=== PATIENT | male | born 1940 | race Caucasian/White ===

== ENCOUNTER 2017-02-12 16:50 | Inpatient (IN) | payer OTHER ==
[~2017-02-12] VITALS: Ht 162.6 cm; Wt 51.6 kg
[2017-02-12 17:05] VITALS: Ht 162.6 cm; Wt 51.6 kg
[2017-02-12] MEDS ORDERED: HYDR-906 PO (17:57)
[2017-02-12] MEDS ORDERED: DEC2 PO (17:58)
[2017-02-12] MEDS ORDERED: KETOROLAC 15 MG INJ IV STA (18:00)
[2017-02-12] MEDS ORDERED: SOD CHLORIDE 0.9% 1,000 ML IV STA (18:00)
--- NOTE | 2017-02-12 18:53 | RADRPT ---
PROCEDURE: CT Brain without contrast. CLINICAL INDICATION: Altered mental status. Question intracranial hemorrhage. TECHNIQUE: Axial images from the skull base through the vertex without IV contrast. Multiplanar r eformatted images were made. Images were reviewed on a PACS workstation. The CTDIvol is 44.9 mGy a nd the DLP is 720.23 mGycm. One or more of the following dose reduction techniques were used: autom ated exposure control, adjustment of the mA and/or kV according to patient size, or use of iterative reconstruction technique. COMPARISON: None. FINDINGS: There are changes from prior right posterior parietal craniotomy. There is an ill-defined mass in th e high right frontoparietal region which partially abuts the falx but extends inferiorly into the ri ght hemisphere just above the right lateral ventricle. There is significant associated vasogenic she[place] ma. There is cleft-like CSF density extending along the medial margin of the mass which could commun icate with the right lateral ventricle. The ventricles are dilated including the third ventricle and fourth ventricle as well as the temporal tips. No intraventricular hemorrhage is seen. There are st ippled areas of increased attenuation within the mass which may represent areas of calcification. Th e dimensions of the mass are difficult to measure as the lesion is ill-defined but the lesion measur es at least 5.2 cm AP by 3.7 cm transverse by 4.8 cm craniocaudad. There is minimal [id number] mi dline shift. No territorial infarction or acute intracranial hemorrhage is seen. Intracranial vascular calcification is seen. Small focal hypodensity in the left frontal lobe subcortical white m atter is seen. The visualized paranasal sinuses and mastoids are clear. IMPRESSION: Changes from prior right posterior parietal craniotomy with large intraparenchymal mass abutting the falx and with significant associated vasogenic edema. Probable areas of calcification within. Minim al [id number] midline shift. Dilated ventricles. MRI with without contrast is suggested for darrius r delineation of the mass. RPTAT: HLBE Physician Santiago Date Time Electronically viewed and signed by Physician Santiago on 02/12/2017 18:53 LE/
--- NOTE | 2017-02-12 19:17 | RADRPT ---
AMENDMENT: 02/12/2017 7:28:23 PM Sherman Castellano Md ADDENDUM: FINDINGS: Surgical changes in the pelvis. Calcifications likely in the corpus cavernosum. PROCEDURE: Pelvis x-ray CLINICAL INDICATION: Trauma. TECHNIQUE: Single AP view of the pelvis performed. COMPARISON: None FINDINGS: Normal mineralization, architecture and alignment. No fracture or osseous lesion identified. There are no significant degenerative changes. Unremarkable soft tissues. IMPRESSION: No acute fracture or subluxation. RPTAT: [facility] Physician Carl Date Time Electronically viewed and signed by Linda Castellano Physician on 02/12/2017 19:30 RS/
--- NOTE | 2017-02-12 19:18 | RADRPT ---
AMENDMENT: 02/12/2017 7:28:05 PM Sherman Castellano Md ADDENDUM: FINDINGS: Surgical changes in the pelvis. Calcifications likely in the corpus cavernosum. PROCEDURE: XR Hip. CLINICAL INDICATION: Trauma to the right hip TECHNIQUE: AP and frog lateral views of the right hip were performed. COMPARISON: None. FINDINGS: There is normal mineralization and alignment. No fracture or osseous lesion is identified. There are normal joints without evidence of arthritis or effusion. The soft tissues are unremarkable. IMPRESSION: Unremarkable right hip. RPTAT: [facility]U Physician Carl Date Time Electronically viewed and signed by Physician Carl on 02/12/2017 19:30 RS/
--- NOTE | 2017-02-12 19:51 | RADRPT ---
PROCEDURE: XR Chest. CLINICAL INDICATION: Infiltrate. TECHNIQUE: Single frontal view of the chest. COMPARISON: None. FINDINGS: Mild cardiomegaly. Atherosclerotic calcifications in the tortuous thoracic aorta. Mild vascular [place] ding may be present at the right lung base. The lungs are otherwise clear. No signs of pleural fluid or pneumothorax are seen. The osseous structures and soft tissues are unremarkable. IMPRESSION: 1. Mild vascular crowding may be present at the right lung base. 2. Otherwise, no acute cardiopulmonary disease. RPTAT: UU Physician Carl Date Time Electronically viewed and signed by Physician Carl on 02/12/2017 19:51 RS/
--- NOTE | 2017-02-12 19:51 | RADRPT ---
PROCEDURE: XR Chest. CLINICAL INDICATION: Infiltrate. TECHNIQUE: Single frontal view of the chest. COMPARISON: None. FINDINGS: Mild cardiomegaly. Atherosclerotic calcifications in the tortuous thoracic aorta. Mild vascular [place] may be present at the right lung base. The lungs are otherwise clear. No signs of pleural fluid or pneumothorax are seen. The osseous structures and soft tissues are unremarkable. IMPRESSION: 1. Mild vascular crowding may be present at the right lung base. 2. Otherwise, no acute cardiopulmonary disease. RPTAT: UU Physician Carl Date Time Electronically viewed and signed by Physician Carl on 02/12/2017 19:51 RS/
--- NOTE | 2017-02-12 19:51 | RADRPT ---
PROCEDURE: XR Chest. CLINICAL INDICATION: Infiltrate. TECHNIQUE: Single frontal view of the chest. COMPARISON: None. FINDINGS: Mild cardiomegaly. Atherosclerotic calcifications in the tortuous thoracic aorta. Mild vascular [place] ding may be present at the right lung base. The lungs are otherwise clear. No signs of pleural fluid or pneumothorax are seen. The osseous structures and soft tissues are unremarkable. IMPRESSION: 1. Mild vascular crowding may be present at the right lung base. 2. Otherwise, no acute cardiopulmonary disease. RPTAT: [facility]U Physician Carl Date Time Electronically viewed and signed by Physician Carl on 02/12/2017 19:51 RS/
[2017-02-12] MEDS ORDERED: IBUP400T22 PO (20:14)
--- NOTE | 2017-02-12 22:30 | ERD ---
ER Documentation Chief Complaint Chief Complaint Fall, no KO, pain right knee, thigh and right elbow - head injury HPI 76-year-old man brought in by EMS from home after mechanical trip and fall injuring his right hip. Patient recalls the entire episode and denies head or neck injury, denies loss of consciousness. Patient has history of surgical craniotomy a year ago and has been in and out of various [facility] facilities and rehab over the last year. He was home for 1 day and his claims he was agitated and accidentally fell. He was ambulatory after the fall transported here by EMS without further complications. Seems to his and he do not get along and can no longer care for him at home. He denies recent fevers or chills, no chest pain or shortness of breath, no headache or blurry vision, no vomiting or diarrhea. ROS All systems reviewed and are negative except as per history of present illness. Medications Home Meds Active Scripts Ibuprofen* (Motrin*) 400 Mg Tab, 400 MG PO Q8 for PAIN AND/OR INFLAMMATION, #30 TAB Prov:DANNIE BLAKELY MD 02/12/17 Reported Medications Dexamethasone* (Decadron*) 2 Mg Tab, 2 MG PO BID, TAB 02/12/17 Hydrocodone/Acetaminophen (Reading 5-325 Tablet) 1 Each Tablet, 1 EACH PO Q6H, TAB 02/12/17 Allergies Allergies: Coded Allergies: No Known Allergy (Unverified , 02/12/17) PMhx/Soc Dementia, surgical craniotomy, arthritis, chronic gait ataxia with difficulty ambulating, seizure disorder Medical and Surgical Hx: pt denies Medical Hx, pt denies Surgical Hx History of Surgery: Yes (Brain tumor x 2016 feb. [facility] pt ) Anesthesia Reaction: No Hx Neurological Disorder: No Hx Respiratory Disorders: No Hx Cardiac Disorders: No Hx Psychiatric Problems: No Hx Miscellaneous Medical Probl: Yes (prostate cancer, dementia ) Hx Alcohol Use: No Hx Substance Use: No Hx Tobacco Use: Yes Smoking Status: Former smoker FmHx Family History: No diabetes Physical Exam Vitals Vital Signs Date Time Temp Pulse Resp B/P Pulse Ox O2 Delivery O2 Flow Rate FiO2 02/12/17 20:35 91 20 149/85 99 Room Air 02/12/17 17:05 98.3 98 20 160/95 97 Physical Exam GENERAL: Well-developed, well-nourished, appears dehydrated, afebrile HEENT: Dry mucous membranes, pink conjunctiva, no cervical spine tenderness or step-off deformities, no goiter, no jaundice or icterus, extraocular movements intact without pain. No submandibular induration, and no pharyngeal erythema NEURO: Alert and oriented 3, cranial nerves II through XII intact bilaterally, pupils equal round reactive to light, no focal deficits or facial asymmetry, sensation intact distally Strength 5/5 in upper and lower extremities bilaterally CARDIAC: Regular rate and rhythm, no murmurs rubs or gallops LUNGS: Clear bilaterally no wheezing crackles or stridor ABDOMEN: Soft nontender, no guarding, no rigidity, no rebound, no psoas sign no obturator sign. Normoactive bowel sounds SKIN: Warm and dry to touch, positive soft tissue contusion to the right hip, no target lesions, and without ulcers EXTREMITIES: No clubbing cyanosis or edema, calves are bilaterally symmetrical, no Homans sign, no popliteal cord sign. Distal pulses equal and bilateral PSYCH: Normal affect without agitation or irritability Result Diagram: 02/12/17191702/12/171917 Results 24 hrs Laboratory Tests Test 02/12/17 19:18 White Blood Count 6.010^3/ul Red Blood Count 4.0410^6/ul Hemoglobin 13.6g/dl Hematocrit 39.0% Mean Corpuscular Volume 96.5fl Mean Corpuscular Hemoglobin 33.7pg Mean Corpuscular Hemoglobin Concent 34.9g/dl Red Cell Distribution Width 13.4% Platelet Count 31421^3/UL Mean Platelet Volume 8.6fl Neutrophils % 69.7% Lymphocytes % 17.4% Monocytes % 7.7% Eosinophils % 0.0% Basophils % 0.7% Nucleated Red Blood Cells % 0.0/100WBC Neutrophils # 4.210^3/ul Lymphocytes # 1.010^3/ul Monocytes # 0.510^3/ul Eosinophils # 0.010^3/ul Basophils # 0.010^3/ul Nucleated Red Blood Cells # 0.010^3/ul Prothrombin Time 12.2Sec Prothrombin Time Ratio 1.0 INR International Normalized Ratio 0.91 Sodium Level 138mmol/L Potassium Level 4.3mmol/L Chloride Level 100mmol/L Carbon Dioxide Level 31mmol/L Anion Gap 11 Blood Urea Nitrogen 10mg/dl Creatinine 0.88mg/dl Glucose Level 91mg/dl Calcium Level 8.8mg/dl Total Bilirubin 0.6mg/dl Direct Bilirubin 0.00mg/dl Indirect Bilirubin 0.6mg/dl Aspartate Amino Transf (AST/SGOT) 35IU/L Alanine Aminotransferase (ALT/SGPT) 51IU/L Alkaline Phosphatase 50IU/L Troponin I 0.021ng/ml Total Protein 6.5g/dl Albumin 3.6g/dl Globulin 2.90g/dl Albumin/Globulin Ratio 1.24 Lipase 20U/L Current Medications Medications (Trade) Dose Ordered Sig/Kieran Route PRN Reason Start Time Stop Time Status Last Admin Dose Admin Sodium Chloride (NS) 1,000 ml @ 1,000 mls/hr Q1H STAT IV 02/12/17 18:00 02/12/17 18:59 DC 02/12/17 19:25 Ketorolac Tromethamine (Toradol) 15 mg ONCE STAT IV 02/12/17 18:00 02/12/17 18:02 DC 02/12/17 19:25 Procedures/MDM IV line was established patient was placed on school lunch monitor rhythm strip revealed a sinus rhythm at about 80 bpm with upright P and T waves. Patient was afebrile. I administered 1 L normal saline intravenously and Toradol 15 mg IV with good pain control. CT scan of the brain was performed revealing chronic changes, no acute bleed mass or shift. Please refer to radiologist dictation for full report. Chest X-ray 1V Interpreted by me: Soft Tissue: No acute abnormalities Bones: No acute abnormalities Mediastinum/Cardiac Silhouette/Lungs: No acute abnormalities X-ray right hip 2V Interpreted by me: Bones: No fracture Joints: No dislocation Foreign body: None X-ray Pelvis 1V Interpreted by me: Bones: No fracture Joints: No dislocation Foreign body: None CBC and electrolytes were unremarkable, liver function tests are normal, troponin negative. Coagulation profile unremarkable. Patient was transported back home but his would not answer the door. Became a domestic issue and [employer] officers were called to the scene, they knocked on his door by his would not answer despite the [employer] officers' attempts. Patient was transported back to this emergency department and he will undergo a full for placement. No indication to the patient patient's vital signs are normal, he is asymptomatic, and just requires a place to live. Differential diagnoses considered, included but not limited to acute coronary syndrome, normal pressure hydrocephalus, pulmonary embolism, aortic dissection, abdominal aortic aneurysm, sepsis, stroke, meningitis, encephalitis, pneumonia, appendicitis, cholecystitis, bowel obstruction, pyelonephritis, nephrolithiasis , cystitis, as well as metabolic, hematologic, and electrolyte abnormalities. As well as abscess, cellulitis, fractures, and dislocations. Patient feels much better at this time, and vital signs are normal, symptoms have improved. I did give strict instructions to return to the ED if symptoms continue or worsen, patient will otherwise follow-up with primary care physician. Patient understood instructions and agreed to plan. Disclaimer: Inadvertent spelling and grammatical errors are likely due to EHR/ dictation software use and do not reflect on the overall quality of patient care. Also, please note that the electronic time recorded on this note does not necessarily reflect the actual time of the patient encounter. Departure Diagnosis: Primary Impression: Contusion, hip Encounter type: initial encounter Laterality: right Qualified Code: S70.01XA - Contusion of right hip, initial encounter Additional Impression: Dementia Dementia type: unspecified type Dementia behavioral disturbance: without behavioral disturbance Qualified Code: F03.90 - Dementia without behavioral disturbance, unspecified dementia type Condition: Stable Patient Instructions: Dementia: Coping Tips for Caregivers, Alzheimer's Dementia, Contusion, Lower Extremity, Dementia, Any Type, Hip Strain DANNIE BLAKELY MD Feb 12, 2017 22:30
[2017-02-12] MEDS ORDERED: PANT20TA2 PO (22:37)
[2017-02-12] MEDS ORDERED: DEC4 PO (22:37)
[2017-02-12] MEDS ORDERED: LEVE-5 PO (22:37)
[2017-02-12] MEDS ORDERED: LEVETIRACETAM 500 MG TAB PO ONE (23:00)
[2017-02-12] MEDS ORDERED: LORAZEPAM 2 MG INJ IV ONE (23:30)
[2017-02-13] MEDS ORDERED: SOD CHLORIDE 0.45% 1,000 ML IV SCH (17:58)
[2017-02-13] MEDS ORDERED: NITROGLYCERIN (SL) 0.4 MG TAB SL PRN (18:00)
[2017-02-13] MEDS ORDERED: DOCUSATE SODIUM 100 MG CAP PO PRN (18:00)
[2017-02-13] MEDS ORDERED: MAGNESIUM HYDROXIDE 30ML CUP PO PRN (18:00)
[2017-02-13] MEDS ORDERED: NACL 0.9% 3 ML SYG IV SCH (18:00)
[2017-02-13] MEDS ORDERED: NA PHOSPHATE/BIPHOS 133 ML ENEMA PR PRN (18:00)
[2017-02-13] MEDS ORDERED: HYDROCODONE/APAP (5/325) TAB PO PRN (18:00)
[2017-02-13] MEDS ORDERED: ONDANSETRON 4 MG INJ IV PRN ×2 (18:00)
[2017-02-13] MEDS ORDERED: morphine 2 MG INJ IV PRN (18:00)
[2017-02-13] MEDS ORDERED: ALBUTEROL/IPRATROPIUM (NEB) 3 ML AMP HHN PRN (18:00)
[2017-02-13] MEDS ORDERED: hydrALAzine 20 MG INJ IV PRN (18:00)
[2017-02-13] MEDS ORDERED: ACETAMINOPHEN 325 MG TAB PO PRN ×2 (18:00)
[2017-02-13] MEDS ORDERED: PROTAMINE 250 MG INJ IV SCH (20:00)
[2017-02-13 20:58] VITALS: TEMP 98.6
[2017-02-13] MEDS: LEVETIRACETAM 500 MG TAB PO SCH ×2 (21:00→23:54)
--- NOTE | 2017-02-13 21:24 | RADRPT ---
PROCEDURE: US Carotids. CLINICAL INDICATION: Syncope. TECHNIQUE: Multiple sonographic of the carotid arteries were obtained utilizing jaeger scale imaging . Color and Doppler imaging was performed. The images were reviewed on a PACS workstation. COMPARISON: No prior studies are available for comparison. FINDINGS: Location:RightLeft CCA45.0 cm/sec80.6 cm/sec Prox ICA43.9 cm/sec55.6 cm/sec Mid ICA48.3 cm/sec57.5 cm/sec Dist ICA50.5 cm/sec49.4 cm/sec ECA89.0 cm/sec77.1 cm/sec ICA/CCA:1.1 0.7 Antegrade flow is seen within the vertebral arteries bilaterally. No significant plaque is seen with in the carotid system bilaterally. IMPRESSION: 1. No hemodynamically significant stenosis in the cervical carotid arteries. 2. Antegrade flow in both vertebral arteries. Note: Ultrasound velocity criteria are extrapolated from diameter data as defined by the Society of Radiologists in Ultrasound Consensus Conference Radiology 2003; 229;340-346. This study indirectly r eferences the measurement of the distal ICA diameter as the denominator for stenosis measurement. RPTAT: HTAR .Gavino Bean MD, MD Date Time Electronically viewed and signed by .Gavino Bean MD, MD on 02/13/2017 21:23 .R/
[2017-02-13 21:43] VITALS: BP 145/70; PULSE 91; RESP 18
--- NOTE | 2017-02-13 22:01 | HP ---
DATE OF ADMISSION: 02/12/2017 REASON FOR ADMISSION: This is a 76-year-old male brought into the ER because of status post fall, right knee and right elbow pain. HISTORY OF PRESENT ILLNESS: A 76-year-old male with past medical history of prior brain tumor, prostate cancer, and dementia, who was brought in by after experiencing a mechanical fall at home and right arm pain and knee pain. Most information obtained from the ER documentation as the patient is unable to provide any history at this time, and it has been difficult to track down family members. Apparently, the story is that the patient was recently at a [facility] facility or rehab facility in [place] and was not happy with the care there and his took him home a few days ago. Apparently, that is when the patient had a fall and the decided to bring him to the emergency room over 24 hours ago. The counseling case manager in the ER tried to have the patient placed at a different nursing facility, but were unsuccessful to place the patient at a nursing facility through the emergency room during this stay. Because the patient's workup has been negative thus far, there was also an attempt to have the patient discharged back home, but the family members did not answer the door when ambulance and police arrived, so the patient was brought back here and we are looking at a possible placement issue versus further workup for the patient. Presently denies any fevers or chills. No shortness of breath, no chest pain. No headaches or blurry vision. No nausea, vomiting, diarrhea or constipation. The patient is unable to provide a full HPI at this time because of the language barrier and also some mild confusion. PAST MEDICAL HISTORY: As stated above. ALLERGIES: NO KNOWN DRUG ALLERGIES. MEDICATIONS: Home medications based on ER documentation, Speculator 5/325 q.6 hours p.r.n., Motrin 400 mg q.8 hours p.r.n., Keppra 500 mg b.i.d., Protonix 20 mg b.i.d., Decadron 4 mg daily. PAST SURGICAL HISTORY: Again, some kind of brain tumor surgery in February,, at [facility]. SOCIAL HISTORY: Former smoker. Denies any alcohol abuse or IV drug abuse. FAMILY HISTORY: Noncontributory today. PHYSICAL EXAMINATION: VITAL SIGNS: T-max 98.7, pulse 82 to 97, respirations 18, blood pressure is 127/86, sating 96 percent on room air. GENERAL: Patient is lying in bed, no acute distress. HEENT: Pupils equal, round, react to light. Extraocular muscles intact. NECK: Supple. No thyromegaly. LUNGS: Clear to auscultation bilaterally. CARDIOVASCULAR: S1, S2 heard. No rubs or gallops. ABDOMEN: Soft, nontender, nondistended. Normal bowel sounds. No rebound or guarding. MUSCULOSKELETAL: No lower extremity bilaterally. NEUROLOGIC: No focal deficits. LABORATORY DATA: CBC is normal 24 hours ago. Comprehensive metabolic panel is normal 24 hours ago. Troponins negative as well. Lipase is normal. DIAGNOSTICS: Head CT was performed, shows changes from prior right posterior parietal craniotomy with large intraparenchymal mass abutting the falx and with significant associated vasogenic edema, minimal right to left midline shift, dilated ventricles. Consider MRI for better delineation. Chest x-ray shows mild vascular crowding at the right lung base. Hip x-ray is unremarkable, this is of the right hip. Pelvic x-ray shows no acute fractures or subluxations. There is no UA. ASSESSMENT AND PLAN: A 76-year-old male brought in after experiencing fall at home and also some right upper and lower extremity pain, also possible issues with finding nursing facility for patient. 1. Status post fall. Again, head CT was negative. X-rays have been negative. Will go and order MRI of the brain given the slightly dilated ventricles noted in the brain. Consider doing neuro checks as well q.1 hours. 2. History of dementia. Continue monitor for now. 3. History of prostate cancer. No . Continue to monitor for now. 4. Check TSH, A1c, and lipid panel. Consider PT consult as well. Also, consider speech evaluation as well. Will also get a case management consult to work on patient's social issues. Dictated By: Kwadwo Roberson MD /dee/nate /Document#: [id number]
--- NOTE | 2017-02-13 22:01 | HP ---
DATE OF ADMISSION: 02/12/2017 REASON FOR ADMISSION: This is a 76-year-old male brought into the ER because of status post fall, right knee and right elbow pain. HISTORY OF PRESENT ILLNESS: A 76-year-old male with past medical history of prior brain tumor, prostate cancer, and dementia, who was brought in by after experiencing a mechanical fall at home and right arm pain and knee pain. Most information obtained from the ER documentation as the patient is unable to provide any history at this time, and it has been difficult to track down family members. Apparently, the story is that the patient was recently at a assisted facility or rehab facility in [place] and was not happy with the care there and his took him home a few days ago. Apparently, that is when the patient had a fall and the decided to bring him to the emergency room over 24 hours ago. The case management assistant in the ER tried to have the patient placed at a different nursing facility, but were unsuccessful to place the patient at a nursing facility through the emergency room during this stay. Because the patient's workup has been negative thus far, there was also an attempt to have the patient discharged back home, but the family members did not answer the door when ambulance and police arrived, so the patient was brought back here and we are looking at a possible placement issue versus further workup for the patient. Presently denies any fevers or chills. No shortness of breath, no chest pain. No headaches or blurry vision. No nausea, vomiting, diarrhea or constipation. The patient is unable to provide a full HPI at this time because of the language barrier and also some mild confusion. PAST MEDICAL HISTORY: As stated above. ALLERGIES: NO KNOWN DRUG ALLERGIES. MEDICATIONS: Home medications based on ER documentation, [place] 5/325 q.6 hours p.r.n., Motrin 400 mg q.8 hours p.r.n., Keppra 500 mg b.i.d., Protonix 20 mg b.i.d., Decadron 4 mg daily. PAST SURGICAL HISTORY: Again, some kind of brain tumor surgery in February,, at [facility]. SOCIAL HISTORY: Former smoker. Denies any alcohol abuse or IV drug abuse. FAMILY HISTORY: Noncontributory today. PHYSICAL EXAMINATION: VITAL SIGNS: T-max 98.7, pulse 82 to 97, respirations 18, blood pressure is 127/86, sating 96 percent on room air. GENERAL: Patient is lying in bed, no acute distress. HEENT: Pupils equal, round, react to light. Extraocular muscles intact. NECK: Supple. No thyromegaly. LUNGS: Clear to auscultation bilaterally. CARDIOVASCULAR: S1, S2 heard. No rubs or gallops. ABDOMEN: Soft, nontender, nondistended. Normal bowel sounds. No rebound or guarding. MUSCULOSKELETAL: No lower extremity bilaterally. NEUROLOGIC: No focal deficits. LABORATORY DATA: CBC is normal 24 hours ago. Comprehensive metabolic panel is normal 24 hours ago. Troponins negative as well. Lipase is normal. DIAGNOSTICS: Head CT was performed, shows changes from prior right posterior parietal craniotomy with large intraparenchymal mass abutting the falx and with significant associated vasogenic edema, minimal right to left midline shift, dilated ventricles. Consider MRI for better delineation. Chest x-ray shows mild vascular crowding at the right lung base. Hip x-ray is unremarkable, this is of the right hip. Pelvic x-ray shows no acute fractures or subluxations. There is no UA. ASSESSMENT AND PLAN: A 76-year-old male brought in after experiencing fall at home and also some right upper and lower extremity pain, also possible issues with finding nursing facility for patient. 1. Status post fall. Again, head CT was negative. X-rays have been negative. Will go and order MRI of the brain given the slightly dilated ventricles noted in the brain. Consider doing neuro checks as well q.1 hours. 2. History of dementia. Continue monitor for now. 3. History of prostate cancer. No . Continue to monitor for now. 4. Check TSH, A1c, and lipid panel. Consider PT consult as well. Also, consider speech evaluation as well. Will also get a case management consult to work on patient's social issues. Dictated By: Kwadwo Roberson MD /dee/nate /Document#: [id number]
--- NOTE | 2017-02-13 22:01 | HP ---
DATE OF ADMISSION: 02/12/2017 REASON FOR ADMISSION: This is a 76-year-old male brought into the ER because of status post fall, right knee and right elbow pain. HISTORY OF PRESENT ILLNESS: A 76-year-old male with past medical history of prior brain tumor, prostate cancer, and dementia, who was brought in by after experiencing a mechanical fall at home and right arm pain and knee pain. Most information obtained from the ER documentation as the patient is unable to provide any history at this time, and it has been difficult to track down family members. Apparently, the story is that the patient was recently at a shelter facility or rehab facility in [place] and was not happy with the care there and his took him home a few days ago. Apparently, that is when the patient had a fall and the decided to bring him to the emergency room over 24 hours ago. The case liner in the ER tried to have the patient placed at a different nursing facility, but were unsuccessful to place the patient at a nursing facility through the emergency room during this stay. Because the patient's workup has been negative thus far, there was also an attempt to have the patient discharged back home, but the family members did not answer the door when ambulance and police arrived, so the patient was brought back here and we are looking at a possible placement issue versus further workup for the patient. Presently denies any fevers or chills. No shortness of breath, no chest pain. No headaches or blurry vision. No nausea, vomiting, diarrhea or constipation. The patient is unable to provide a full HPI at this time because of the language barrier and also some mild confusion. PAST MEDICAL HISTORY: As stated above. ALLERGIES: NO KNOWN DRUG ALLERGIES. MEDICATIONS: Home medications based on ER documentation, Hawkins 5/325 q.6 hours p.r.n., Motrin 400 mg q.8 hours p.r.n., Keppra 500 mg b.i.d., Protonix 20 mg b.i.d., Decadron 4 mg daily. PAST SURGICAL HISTORY: Again, some kind of brain tumor surgery in February,, at [facility]. SOCIAL HISTORY: Former smoker. Denies any alcohol abuse or IV drug abuse. FAMILY HISTORY: Noncontributory today. PHYSICAL EXAMINATION: VITAL SIGNS: T-max 98.7, pulse 82 to 97, respirations 18, blood pressure is 127/86, sating 96 percent on room air. GENERAL: Patient is lying in bed, no acute distress. HEENT: Pupils equal, round, react to light. Extraocular muscles intact. NECK: Supple. No thyromegaly. LUNGS: Clear to auscultation bilaterally. CARDIOVASCULAR: S1, S2 heard. No rubs or gallops. ABDOMEN: Soft, nontender, nondistended. Normal bowel sounds. No rebound or guarding. MUSCULOSKELETAL: No lower extremity bilaterally. NEUROLOGIC: No focal deficits. LABORATORY DATA: CBC is normal 24 hours ago. Comprehensive metabolic panel is normal 24 hours ago. Troponins negative as well. Lipase is normal. DIAGNOSTICS: Head CT was performed, shows changes from prior right posterior parietal craniotomy with large intraparenchymal mass abutting the falx and with significant associated vasogenic edema, minimal right to left midline shift, dilated ventricles. Consider MRI for better delineation. Chest x-ray shows mild vascular crowding at the right lung base. Hip x-ray is unremarkable, this is of the right hip. Pelvic x-ray shows no acute fractures or subluxations. There is no UA. ASSESSMENT AND PLAN: A 76-year-old male brought in after experiencing fall at home and also some right upper and lower extremity pain, also possible issues with finding nursing facility for patient. 1. Status post fall. Again, head CT was negative. X-rays have been negative. Will go and order MRI of the brain given the slightly dilated ventricles noted in the brain. Consider doing neuro checks as well q.1 hours. 2. History of dementia. Continue monitor for now. 3. History of prostate cancer. No . Continue to monitor for now. 4. Check TSH, A1c, and lipid panel. Consider PT consult as well. Also, consider speech evaluation as well. Will also get a case management consult to work on patient's social issues. Dictated By: Kwadwo Roberson MD /dee/nate /Document#: [id number]
[2017-02-13] MEDS: LORAZEPAM 2 MG INJ IV PRN (22:41)
[2017-02-14] VITALS (8 sets, daily range): BP systolic 102–160; BP diastolic 54–77; PULSE 90–105; RESP 16–20
--- NOTE | 2017-02-14 00:32 | RADRPT ---
PROCEDURE: MRI Brain without contrast. CLINICAL INDICATION: Prior history of brain surgery and abnormal CT TECHNIQUE: An MRI of the brain was performed on a high resolution hi-definition MRI scanner utiliz ing the following sequences: Sagittal and axial T1 weighted, axial T2 weighted, axial T2 FLAIR, axia l diffusion weighted with ADC mapping, and coronal GRE. COMPARISON: CT brain 02/12/2017 FINDINGS: The scalp and calvarium are remarkable for remote right posterior parietal craniotomy changes. The b ilateral orbits are normal. The bilateral paranasal sinuses, mastoid air cells and middle ear caviti es are clear. 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 This mass is incompletely evaluated on this noncontrast brain MRI and measures approximately 5.5 cm AP by 3.9 cm in transverse dimensions by 4.7 cm in superior inferior dimensions. Extensive va sogenic edema is also noted coursing in the right posterior frontal lobe , parietal lobe, occipital lobe and right temporal lobe with sulcal effacement noted. Associated right parietal extra-axial mas ses are also noted with the CSF cleft signed present lateral to the larger extra-axial mass. The lar adán extra-axial mass measures approximately 3.6 cm AP by 2.5 cm transverse and the smaller extra-axi al mass immediately lateral to this right posterior parafalcine extra-axial mass measures 1.9 cm in maximum AP dimensions by 1.5 cm in transverse dimensions. These extra-axial masses may reflect a dur al based metastasis of the previously noted intra-axial mass or primary extra-axial masses which have invaded the intra-axial space secondarily. Sulcal effacement is again noted in the right posterior frontal and parietal lobes. Minimal right to left 2 mm midline shift is present. The appearance of the superior sagittal sinus on this limited b rain MRI appears patent. Mild punctate foci of FLAIR and T2 hyperintensity are noted in the bilateral centrum semiovale and p eriventricular white matter compatible with mild chronic microvascular ischemic disease. Prominent p erivascular spaces or chronic infarct in the left cerebellum is noted. The ventricles and sulci are remarkable for effacement in the right posterior body and atrium of the lateral ventricle with mild ventriculomegaly present and diffuse volume loss. In the periphery of the which may represent super imposed acute ischemia or small deep white matter infarct. Hypointensity is noted on the GRE sequen brandy within the central component of the right parietal lobe mass compatible with hemoglobin degradat ion by-products. Normal flow voids are visible in the proximal intracranial arteries and dural si nuses, indicating patency. IMPRESSION: 1. 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 Recom mend brain MRI with contrast to follow to better evaluate this neoplasm. 2. Multiple right parietal extra-axial masses as described above 3. Extensive perilesional white matter vasogenic edema involving the right posterior frontal lobe, p arietal, occipital and temporal lobes. 4. Sulcal effacement in the right posterior frontal parietal and occipital lobes with mild 2 mm righ t to left midline shift. 5. Mild extrinsic effacement of the right lateral ventricle with mild ventriculomegaly and no eviden ce for active hydrocephalus. 6. Mild diffuse volume loss and chronic microvascular ischemic disease. 7. Mild acute parietal deep white matter ischemia/infarct along the right anterolateral margin of th e right parietal mass described above. A returned call request was made to Kwadwo Roberson at 02/14/2017 12:17:29 AM following the compl etion of the examination by the undersigned. RPTAT: HDC .Nida Hough MD, Date Time Electronically viewed and signed by .Nida Hough MD, on 02/14/2017 00:31 .C/
[2017-02-14] MEDS ORDERED: DEXTROSE 50% 50 ML SYRINGE ONE (07:22)
[2017-02-14] MEDS ORDERED: DEXTROSE 50% 50 ML SYRINGE IV ONE (07:30)
[2017-02-14] MEDS: DEXTROSE 5%-0.45% NACL 1,000 ML IV SCH ×2 (07:40→21:59)
[2017-02-14] MEDS: LEVETIRACETAM 500 MG TAB PO SCH (07:49)
[2017-02-14] MEDS ORDERED: INFLUENZA VIRUS VACCINE 0.5 ML (DISPENSING) IM* ONE (09:00)
[2017-02-14] MEDS ORDERED: LEVETIRACETAM 500 MG (PMX) 100 ML IVPB SCH (09:30)
[2017-02-14] MEDS: ATORVASTATIN 40 MG TAB PO SCH (09:55)
--- NOTE | 2017-02-14 10:04 | PN ---
Date/Time of Note Date/Time of Note DATE: 02/14/17 TIME: 09:46 Assessment/Plan VTE Prophylaxis VTE Prophylaxis Intervention: SCD's Lines/Catheters IV Catheter Type (from Nrsg): Peripheral IV Assessment/Plan Chief Complaint/Hosp Course ASSESSMENT AND PLAN: 76-year-old male brought in after experiencing fall at home and also some right upper and lower extremity pain, also possible issues with finding nursing facility for patient. 1. Status post fall -MRI of the brain results are noted (see below). carotid performed as well. -Continue neuro checks q.4 hours. - Allow for permissive hypertension. -We will get neurology and neurosurgery consults and request medical records from [facility] given the fact patient apparently had brain surgery in February 2016 there, we need to get an idea what kind of tumor patient had. -PT OT speech therapy consults are pending -Given now left lower extremity pain symptoms, will also get left hip x-ray and left knee x-ray to rule out fx vs other -Follow-up echocardiogram results 2. History of dementia. Continue monitor for now. 3. History of prostate cancer - Continue to monitor for now. Problems: Subjective 24 Hr Interval Summary Free Text/Dictation Patient having some left-sided hip and knee pain. MRI of the brain results noted. Exam/Review of Systems Vital Signs Vitals Vital Signs Date Time Temp Pulse Resp B/P Pulse Ox O2 Delivery O2 Flow Rate FiO2 02/14/17 07:39 99.1 94 18 102/54 92 02/13/17 21:43 Room Air Intake and Output 02/13/17 02/13/17 02/14/17 15:00 23:00 07:00 Intake Total 375 ml Balance 375 ml Exam GENERAL: Patient is lying in bed, no acute distress. HEENT: Pupils equal, round, react to light. Extraocular muscles intact. NECK: Supple. No thyromegaly. LUNGS: Clear to auscultation bilaterally. CARDIOVASCULAR: S1, S2 heard. No rubs or gallops. ABDOMEN: Soft, nontender, nondistended. Normal bowel sounds. No rebound or guarding. MUSCULOSKELETAL: No lower extremity bilaterally. NEUROLOGIC: Some decreased strength in left lower extremity Results Result Diagram: 02/14/17 0537 02/14/17 0537 Results 24 hrs Laboratory Tests Test 02/13/17 18:00 02/14/17 05:37 02/14/17 07:06 02/14/17 07:45 Free Thyroxine 1.61 White Blood Count 7.3 # Red Blood Count 3.86 L Hemoglobin 12.6 L Hematocrit 38.0 L Mean Corpuscular Volume 98.4 Mean Corpuscular Hemoglobin 32.6 Mean Corpuscular Hemoglobin Concent 33.2 Red Cell Distribution Width 14.1 Platelet Count 134 L Mean Platelet Volume 8.9 Neutrophils % 62.4 Lymphocytes % 22.6 Monocytes % 10.9 Eosinophils % 0.1 Basophils % 0.6 Nucleated Red Blood Cells % 0.3 H Neutrophils # 4.5 Lymphocytes # 1.6 Monocytes # 0.8 Eosinophils # 0.0 Basophils # 0.0 Nucleated Red Blood Cells # 0.0 Sodium Level 137 Potassium Level 3.9 Chloride Level 102 Carbon Dioxide Level 25 Anion Gap 14 Blood Urea Nitrogen 13 Creatinine 0.88 Glucose Level 40 #*L Hemoglobin A1c 6.5 H Calcium Level 7.8 L Phosphorus Level 3.3 Magnesium Level 1.9 Triglycerides Level 198 H Cholesterol Level 147 LDL Cholesterol, Calculated 71 HDL Cholesterol 36 Cholesterol/HDL Ratio 4.0 Thyroid Stimulating Hormone (TSH) 0.279 L Bedside Glucose 49 *L 262 H Medications Medications Current Medications Ondansetron HCl (Zofran Inj) 4 mg Q6H PRN IV NAUSEA AND/OR VOMITING; Start at 18:00 Acetaminophen (Tylenol Tab) 650 mg Q6H PRN PO PAIN LEVEL 1-3 OR FEVER; Start 02/13/17 at 18:00 Acetaminophen/ Hydrocodone Bitart ([place] (5/325)) 1 tab Q6H PRN PO MODERATE PAIN LEVEL 4-6; Start 02/13/17 at 18:00 Morphine Sulfate (morphine) 2 mg Q4H PRN IV SEVERE PAIN LEVEL 7-10; Start at 18:00 Docusate Sodium (Colace) 100 mg Q12H PRN PO CONSTIPATION; Start 02/13/17 at 18 :00 Magnesium Hydroxide (Milk Of Mag) 30 ml DAILY PRN PO CONSTIPATION; Start 02/13 at 18:00 Sodium Biphosphate/ Sodium Phosphate (Fleet Enema) 133 ml DAILY PRN OR CONSTIPATION; Start 02/13/17 at 18:00 Lorazepam (Ativan) 0.5 mg Q6H PRN IV ANXIETY Last administered on 02/13/17t 22 :41; Admin Dose 0.5 MG; Start 02/13/17 at 18:00 Hydralazine HCl (Apresoline) 10 mg Q6H PRN IV ELEVATED BLOOD PRESSURE; Start 02/13/17 at 18:00 Clonidine (Catapres) 0.1 mg Q6H PRN PO ELEVATED BLOOD PRESSURE; Start at 18:00 Nitroglycerin 1 tab 1 tab Q5M PRN SL ANGINA; Start 02/13/17 at 18:00 Dextrose/Sodium Chloride (D5-1/2ns) 1,000 ml @ 75 mls/hr [id number] IV Last administered on 02/14/17t 07:40; Admin Dose 75 MLS/HR; Start 02/14/17 at 07:30 Influenza Virus Vaccine 0.5 ml 0.5 ml ONCE ONCE IM* ; Start 02/16/17 at 08:00; Stop 02/16/17 at 08:01 Levetiracetam/ Dextrose (Keppra Iv/D5W) 102.5 ml @ 410 mls/hr Q12 IV ; Start 02/14/17 at 10:00 Pantoprazole (Protonix Iv) 40 mg DAILY@06 IV ; Start 02/15/17 at 06:00 Procedures Procedures MRI brain without contrast: IMPRESSION: 1. 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 Recommend brain MRI with contrast to follow to better evaluate this neoplasm. 2. Multiple right parietal extra-axial masses as described above 3. Extensive perilesional white matter vasogenic edema involving the right posterior frontal lobe, parietal, occipital and temporal lobes. 4. Sulcal effacement in the right posterior frontal parietal and occipital lobes with mild 2 mm right to left midline shift. 5. Mild extrinsic effacement of the right lateral ventricle with mild ventriculomegaly and no evidence for active hydrocephalus. 6. Mild diffuse volume loss and chronic microvascular ischemic disease. 7. Mild acute parietal deep white matter ischemia/infarct along the right anterolateral margin of the right parietal mass described above. [place] DANIEL Feb 14, 2017 09:57
[2017-02-14] MEDS: LEVETIRACETAM IV 250 MG in DEXTROSE 5% 100 ML IV SCH ×2 (10:35→21:59)
--- NOTE | 2017-02-14 11:21 | RADRPT ---
PROCEDURE: XR Left Hip. CLINICAL INDICATION: Left hip pain. TECHNIQUE: Two views. Frontal and lateral. COMPARISON: No prior studies are available for comparison. FINDINGS: There is no fracture or dislocation. The soft tissues are normal. Articular surfaces are intact. There is no lytic or blastic lesion. Surgical clips are present in the left inguinal region. IMPRESSION: 1. Prior left inguinal surgery. 2. Otherwise normal images of the left hip. RPTAT: QQ .Fermín Escalona MD, MD Date Time Electronically viewed and signed by .Fermín Escalona MD, MD on 02/14/2017 11:21 .R/
--- NOTE | 2017-02-14 11:22 | RADRPT ---
PROCEDURE: Left knee radiographs. CLINICAL INDICATION: Trauma due to a fall. Left knee pain. TECHNIQUE: Three views. Weight bearing. Frontal, lateral, and oblique. COMPARISON: No prior studies are available for comparison. FINDINGS: There is no fracture or dislocation. The soft tissues are normal. Articular surfaces are intact. There is no lytic or blastic lesion. There is no radiopaque foreign body. IMPRESSION: 1. Normal images of the left knee. RPTAT: QQ .Fermín Escalona MD, Date Time Electronically viewed and signed by .Fermín Escalona MD, on 02/14/2017 11:22 .R/
--- NOTE | 2017-02-14 12:55 | RADRPT ---
Vent Rate: 98 bpm RR Interval: 0 msec NH Interval: 142 msec QRS Duration: 82 msec QT Interval: 338 msec QTC Interval: 431 msec P-R-T [place]: 66 - -39 - 61 degrees Normal sinus rhythm Left axis deviation Abnormal ECG Electronically Signed By: Gagan Cornejo [id number]
--- NOTE | 2017-02-14 12:55 | RADRPT ---
Vent Rate: 98 bpm RR Interval: 0 msec SD Interval: 142 msec QRS Duration: 82 msec QT Interval: 338 msec QTC Interval: 431 msec P-R-T [place]: 66 - -39 - 61 degrees Normal sinus rhythm Left axis deviation Abnormal ECG Electronically Signed By: Gagan Cornejo [id number]
--- NOTE | 2017-02-14 12:55 | RADRPT ---
Vent Rate: 98 bpm RR Interval: 0 msec NE Interval: 142 msec QRS Duration: 82 msec QT Interval: 338 msec QTC Interval: 431 msec P-R-T [place]: 66 - -39 - 61 degrees Normal sinus rhythm Left axis deviation Abnormal ECG Electronically Signed By: Gagan Cornejo [id number]
--- NOTE | 2017-02-14 14:47 | CONS ---
Date/Time of Note Date/Time of Note DATE: 02/14/17 TIME: 14:33 Assessment/Plan Assessment/Plan Chief Complaint/Hosp Course History of brain tumor, status post fall, right knee and elbow pain Problems: Additional Assessment/Plan Patient is a 76-year-old male with past medical history of brain tumor status post resection, carcinoma prostate, dementia was admitted following a fall. He was complaining of right knee and elbow pain. CT scan of the brain was unremarkable except for ventriculomegaly. 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 Neurology consult was called to evaluate his neurological status. Examination was limited but appeared nonfocal. 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 Plan 1 MRI of the brain with contrast 2 neurosurgical evaluation 3 Oncology evaluation 4 seizure precautions 5 start on aspirin 81 mg p.o. daily 6 continue Keppra 7 will follow Consultation Date/Type/Reason Admit Date/Time Feb 13, 2017 at 17:59 Date of Consultation: Feb 14, 2017 Type of Consultation: Neurology Reason for Consultation Status post fall with right elbow and knee pain Referring Provider: [place] DANIEL Hx of Present Illness Patient is a 76-year-old male with past medical history of brain tumor status post resection, carcinoma prostate, dementia was admitted following a fall. He was complaining of right knee and elbow pain. CT scan of the brain was unremarkable except for ventriculomegaly. 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 Neurology consult was called to evaluate his neurological status. Past Medical History Medical History: other (Dementia) Past Surgical History Past Surgical Hx: other (Brain tumor status post resection, carcinoma prostate) Social History Smoking Status: Former smoker Exam/Review of Systems Vital Signs Vitals Vital Signs Date Time Temp Pulse Resp B/P Pulse Ox O2 Delivery O2 Flow Rate FiO2 02/14/17 13:16 90 02/14/17 07:39 99.1 18 102/54 92 02/13/17 21:43 Room Air Intake and Output 02/13/17 02/13/17 02/14/17 15:00 23:00 07:00 Intake Total 375 ml Balance 375 ml Exam Constitutional: alert, other (Disoriented) Psych: nl mood/affect, no complaints Head: atraumatic, normocephalic Eyes: EOMI, nl conjunctiva, nl lids, nl sclera ENMT: mucosa pink and moist, nl external ears & nose, nl lips & teeth, nl nasal mucosa & septum Neck: non-tender, supple Respiratory: clear to auscultation, normal air movement Cardiovascular: nl pulses, regular rate and rhythm Gastrointestinal: nl liver, spleen, non-tender, soft Extremities: normal pulses Neurological: other (Limited exam, alert and awake, following simple commands, moving all extremities non-purposefully, reflexes are 2+ all over plantars are both down) Results Result Diagram: 02/14/17 0537 02/14/17 0537 Results 24 hrs Laboratory Tests Test 02/13/17 18:00 02/14/17 05:37 02/14/17 07:06 02/14/17 07:45 Free Thyroxine 1.61 White Blood Count 7.3 # Red Blood Count 3.86 L Hemoglobin 12.6 L Hematocrit 38.0 L Mean Corpuscular Volume 98.4 Mean Corpuscular Hemoglobin 32.6 Mean Corpuscular Hemoglobin Concent 33.2 Red Cell Distribution Width 14.1 Platelet Count 134 L Mean Platelet Volume 8.9 Neutrophils % 62.4 Lymphocytes % 22.6 Monocytes % 10.9 Eosinophils % 0.1 Basophils % 0.6 Nucleated Red Blood Cells % 0.3 H Neutrophils # 4.5 Lymphocytes # 1.6 Monocytes # 0.8 Eosinophils # 0.0 Basophils # 0.0 Nucleated Red Blood Cells # 0.0 Sodium Level 137 Potassium Level 3.9 Chloride Level 102 Carbon Dioxide Level 25 Anion Gap 14 Blood Urea Nitrogen 13 Creatinine 0.88 Glucose Level 40 #*L Hemoglobin A1c 6.5 H Calcium Level 7.8 L Phosphorus Level 3.3 Magnesium Level 1.9 Triglycerides Level 198 H Cholesterol Level 147 LDL Cholesterol, Calculated 71 HDL Cholesterol 36 Cholesterol/HDL Ratio 4.0 Thyroid Stimulating Hormone (TSH) 0.279 L Bedside Glucose 49 *L 262 H Test 02/14/17 12:26 Troponin I 0.028 Medications Medications Current Medications Ondansetron HCl (Zofran Inj) 4 mg Q6H PRN IV NAUSEA AND/OR VOMITING; Start at 18:00 Acetaminophen (Tylenol Tab) 650 mg Q6H PRN PO PAIN LEVEL 1-3 OR FEVER; Start 02/13/17 at 18:00 Acetaminophen/ Hydrocodone Bitart ([place] (5/325)) 1 tab Q6H PRN PO MODERATE PAIN LEVEL 4-6; Start 02/13/17 at 18:00 Morphine Sulfate (morphine) 2 mg Q4H PRN IV SEVERE PAIN LEVEL 7-10; Start at 18:00 Docusate Sodium (Colace) 100 mg Q12H PRN PO CONSTIPATION; Start 02/13/17 at 18 :00 Magnesium Hydroxide (Milk Of Mag) 30 ml DAILY PRN PO CONSTIPATION; Start 02/13 at 18:00 Sodium Biphosphate/ Sodium Phosphate (Fleet Enema) 133 ml DAILY PRN DE CONSTIPATION; Start 02/13/17 at 18:00 Lorazepam (Ativan) 0.5 mg Q6H PRN IV ANXIETY Last administered on 02/13/17 22 :41; Admin Dose 0.5 MG; Start 02/13/17 at 18:00 Hydralazine HCl (Apresoline) 10 mg Q6H PRN IV ELEVATED BLOOD PRESSURE; Start 02/13/17 at 18:00 Nitroglycerin 1 tab 1 tab Q5M PRN SL ANGINA; Start 02/13/17 at 18:00 Dextrose/Sodium Chloride (D5-1/2ns) 1,000 ml @ 75 mls/hr [id number] IV Last administered on 02/14/17 07:40; Admin Dose 75 MLS/HR; Start 02/14/17 at 07:30 Influenza Virus Vaccine 0.5 ml 0.5 ml ONCE ONCE IM* ; Start 02/16/17 at 08:00; Stop 02/16/17 at 08:01 Levetiracetam/ Dextrose (Keppra Iv/D5W) 102.5 ml @ 410 mls/hr Q12 IV Last administered on 02/14/17 10:35; Admin Dose 410 MLS/HR; Start 02/14/17 at 10: 00 Pantoprazole (Protonix Iv) 40 mg DAILY@06 IV ; Start 02/15/17 at 06:00 Atorvastatin Calcium (Lipitor) 40 mg HS PO ; Start 02/14/17 at 09:55 Procedures Procedures MRI of the brain 02/14/2017 IMPRESSION: 1. 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 Recommend brain MRI with contrast to follow to better evaluate this neoplasm. 2. Multiple right parietal extra-axial masses as described above 3. Extensive perilesional white matter vasogenic edema involving the right posterior frontal lobe, parietal, occipital and temporal lobes. 4. Sulcal effacement in the right posterior frontal parietal and occipital lobes with mild 2 mm right to left midline shift. 5. Mild extrinsic effacement of the right lateral ventricle with mild ventriculomegaly and no evidence for active hydrocephalus. 6. Mild diffuse volume loss and chronic microvascular ischemic disease. 7. Mild acute parietal deep white matter ischemia/infarct along the right anterolateral margin of the right parietal mass described above. A returned call request was made to [place] Daniel at 02/14/2017 12:17:29 AM following the completion of the examination by the undersigned. RPTAT: HDC .Nida Hough MD, MD Date Time Electronically viewed and signed by .Nida Hough MD, MD on 02/14/2017 00: 31 ISAI ESPITIA MD Feb 14, 2017 14:43
[2017-02-14] MEDS ORDERED: ASPIRIN (EC) 81 MG TAB PO SCH (15:00)
--- NOTE | 2017-02-14 16:21 | RADRPT ---
Echocardiogram Report Patient Name: BEAU GARCIA Gender: Male Date: 1940 Study Date: 14-Feb-2017 Parking Technician: PAL Location: Ref. Physician: INDIA DANIEL Quality: Technically Difficult Study Procedures: Transthoracic echocardiogram with 2D, M-Mode, and Doppler examination. Indications: Syncope. 2D/M Mode Doppler Measurement Value Normal Ranges Measurement Value Normal Ranges AoR Diam MM 3.2 cm STEWART Vmax 1.4 cm2 LVIDd 2D 3.5 3.5 - 5.6 cm STEWART VTI 1.4 cm2 LVIDs 2D 2.4 2.1 - 4.1 cm AV Mean Duy 1.3 m/sec LVPWd 2D 1.3 0.6 - 1.1 cm AV Mean PG 7.8 mmHg IVSd 2D 1.4 0.6 - 1.1 cm AV Peak Duy 1.9 m/sec EDV 2D 51.7 cm3 AV Peak PG 14.3 mmHg ESV 2D 13.8 cm3 AV VTI 29.5 cm LA Dimen 2D 3.0 2.3 - 4.0 cm LVOT Mean Duy 0.6 m/sec LVOT Diam 2.0 cm LVOT Mean PG 1.6 mmHg LVOT Peak Duy 0.9 m/sec LVOT Peak PG 3.1 mmHg LVOT VTI 14.9 cm MV E Peak Duy 0.5 m/sec MV A Peak Duy 0.6 m/sec MV E/A 0.7 MV Decel Time 234 msec MV Decel [place] 2 MV E/A 0.7 Findings Left Ventricle: Normal left ventricular systolic function. Normal left ventricular cavity size. Mild concentric left ventricular hypertrophy. Ejection fraction is visually estimated at 5560 %. Tissue Doppler/Mitral Doppler indices are consistent with impaired relaxation (Stage I diastolic dysfunction). Right Ventricle: Normal right ventricular size. Normal right ventricular systolic function. Left Atrium: The left atrium is normal in size. Right Atrium: The right atrium is normal in size. Atrial Septum: Not well visualized. Mitral Valve: Normal appearance of the mitral valve. No mitral valve regurgitation is seen. Aortic Valve: Mild aortic stenosis. Aortic valve Max velocity 1.90 m/sec. Max PG 14.00 mmHg. Mean PG 8.00 mmHg. Aortic valve area 1.60 cm2. Aortic cusps appear mildly calcified. No aortic regurgitation. Tricuspid Valve: Normal appearance of the tricuspid valve. There is trace tricuspid regurgitation. Pulmonic Valve: Pulmonic valve not well visualized. Pericardium: Normal pericardium with no significant pericardial effusion. Aorta: Normal aortic root. IVC: The IVC is not well visualized. Pulmonary Artery: Not well visualized. Conclusions 1.The left ventricle is normal in size and systolic function. 2.Estimated left ventricular ejection fraction of 55-60%. 3.Mild concentric left ventricular hypertrophy. Grade 1 diastolic dysfunction. 4.Mild aortic valve stenosis. Electronically Signed By: Romaine Garcia 14-Feb-2017 16:20:38 -0700 Patient Name: BEAU GARCIA Study Date: 14-Feb-[id number]
--- NOTE | 2017-02-14 16:21 | RADRPT ---
Echocardiogram Report Patient Name: BEAU GARCIA Gender: Male Date: 1940 Study Date: 14-Feb-2017 Assistant Grocery Store Manager: PAL Location: Ref. Physician: IND[place] DANIEL Quality: Technically Difficult Study Procedures: Transthoracic echocardiogram with 2D, M-Mode, and Doppler examination. Indications: Syncope. 2D/M Mode Doppler Measurement Value Normal Ranges Measurement Value Normal Ranges AoR Diam MM 3.2 cm STEWART Vmax 1.4 cm2 LVIDd 2D 3.5 3.5 - 5.6 cm STEWART VTI 1.4 cm2 LVIDs 2D 2.4 2.1 - 4.1 cm AV Mean Duy 1.3 m/sec LVPWd 2D 1.3 0.6 - 1.1 cm AV Mean PG 7.8 mmHg IVSd 2D 1.4 0.6 - 1.1 cm AV Peak Duy 1.9 m/sec EDV 2D 51.7 cm3 AV Peak PG 14.3 mmHg ESV 2D 13.8 cm3 AV VTI 29.5 cm LA Dimen 2D 3.0 2.3 - 4.0 cm LVOT Mean Duy 0.6 m/sec LVOT Diam 2.0 cm LVOT Mean PG 1.6 mmHg LVOT Peak Duy 0.9 m/sec LVOT Peak PG 3.1 mmHg LVOT VTI 14.9 cm MV E Peak Duy 0.5 m/sec MV A Peak Duy 0.6 m/sec MV E/A 0.7 MV Decel Time 234 msec MV Decel [place] 2 MV E/A 0.7 Findings Left Ventricle: Normal left ventricular systolic function. Normal left ventricular cavity size. Mild concentric left ventricular hypertrophy. Ejection fraction is visually estimated at 5560 %. Tissue Doppler/Mitral Doppler indices are consistent with impaired relaxation (Stage I diastolic dysfunction). Right Ventricle: Normal right ventricular size. Normal right ventricular systolic function. Left Atrium: The left atrium is normal in size. Right Atrium: The right atrium is normal in size. Atrial Septum: Not well visualized. Mitral Valve: Normal appearance of the mitral valve. No mitral valve regurgitation is seen. Aortic Valve: Mild aortic stenosis. Aortic valve Max velocity 1.90 m/sec. Max PG 14.00 mmHg. Mean PG 8.00 mmHg. Aortic valve area 1.60 cm2. Aortic cusps appear mildly calcified. No aortic regurgitation. Tricuspid Valve: Normal appearance of the tricuspid valve. There is trace tricuspid regurgitation. Pulmonic Valve: Pulmonic valve not well visualized. Pericardium: Normal pericardium with no significant pericardial effusion. Aorta: Normal aortic root. IVC: The IVC is not well visualized. Pulmonary Artery: Not well visualized. Conclusions 1.The left ventricle is normal in size and systolic function. 2.Estimated left ventricular ejection fraction of 55-60%. 3.Mild concentric left ventricular hypertrophy. Grade 1 diastolic dysfunction. 4.Mild aortic valve stenosis. Electronically Signed By: Romaine Garcia 14-Feb-2017 16:20:38 -0700 Patient Name: BEAU GARCIA Study Date: 14-Feb-[id number]
[2017-02-14] MEDS: ASPIRIN 300 MG SUPP PR SCH (19:03)
--- NOTE | 2017-02-14 19:26 | RADRPT ---
PROCEDURE: MR Brain with contrast. CLINICAL INDICATION: Neurologic deficit TECHNIQUE: A high resolution MRI of the brain was attempted with postcontrast axial, coronal and s agittal sequences after the intravenous administration of 10 cc Magnevist. No reported complication. COMPARISON: Brain MRI 02/13/2017, head CT 02/12/2017 FINDINGS: Severe motion degraded exam. Old right parietal craniotomy changes. There is heterogenous enhancement of intracranial, right parietal-occipital lesions measuring a reg ion of 5.5 x 5.5 x 5.5 cm (transverse x anteroposterior x craniocaudal). There is marked surrounding right posterior cerebral vasogenic edema with partial effacement of the posterior body, atrium and occipital horn of the right lateral ventricle. There is 2mm leftward midline shift. The lesion conta cts and may invade the superior sagittal sinus. IMPRESSION: Severe motion degraded exam limited evaluation. Old right parietal craniotomy changes. Heterogenous enhancement of intracranial, right parietal-occipital lesions measuring a region of 5. 5 x 5.5 x 5.5 cm most compatible with neoplasm. Correlation to patient history and prior outside melissa dies would be helpful. There is marked surrounding right posterior cerebral vasogenic edema with par tial effacement of the posterior body, atrium and occipital horn of the right lateral ventricle. The re is mild leftward midline shift. The lesion contacts and may invade the superior sagittal sinus. C onsider CT venogram of the brain for further evaluation. RPTAT: AA .Vamsi Sotelo MD, Date Time Electronically viewed and signed by .Vamsi Sotelo MD, MD on 02/14/2017 19:25 .T/
[2017-02-15] VITALS (12 sets, daily range): BP systolic 128–167; BP diastolic 65–79; PULSE 81–99; RESP 16–20
[2017-02-15] MEDS: PANTOPRAZOLE 40 MG INJ IV SCH (06:35)
[2017-02-15] MEDS: ASPIRIN 300 MG SUPP PR SCH (09:32)
[2017-02-15] MEDS: LEVETIRACETAM IV 250 MG in DEXTROSE 5% 100 ML IV SCH ×2 (10:21→19:59)
[2017-02-15] MEDS: DEXTROSE 5%-0.45% NACL 1,000 ML IV SCH (11:25)
[2017-02-15] MEDS ORDERED: POTASSIUM CHLORIDE 250 ML IVPB ONE (11:30)
--- NOTE | 2017-02-15 11:33 | PN ---
Date/Time of Note Date/Time of Note DATE: 02/15/17 TIME: 11:24 Assessment/Plan VTE Prophylaxis VTE Prophylaxis Intervention: SCD's Lines/Catheters IV Catheter Type (from [facility]): Peripheral IV Urinary Cath still in place: No Assessment/Plan Chief Complaint/Hosp Course ASSESSMENT AND PLAN: 76-year-old male brought in after experiencing fall at home and also some right upper and lower extremity pain, also possible issues with finding nursing facility for patient. 1. Status post fall -MRI of the brain results are noted (see below). Carotid dopplers and ECHO performed as well (see below). -Continue neuro checks q.4 hours, permissive hypertension 1st 24 hrs. -f/u neurology and neurosurgery consult rec's, as well as Heme/Onc. Also have requested medical records from [facility] given the fact patient had brain surgery in February 2016 there, we need to get an idea what kind of tumor patient had. Spoke with son yesterday as well regarding this, he says patient was still getting care at [facility] with the department there, but could not remember the doctor's name nor the type of brain tumor patient had. Also spoke with complex case manager about initiating transfer process for patient back to [facility], this is being worked on. -PT OT speech therapy consults 2. History of dementia. Continue monitor for now. 3. History of prostate cancer - Continue to monitor for now. Problems: Subjective 24 Hr Interval Summary Free Text/Dictation Patient transferred to telemetry for now, no acute events overnight. Had MRI with contrast performed of the brain. Seen by neurology team yesterday. Awaiting hematology oncology consult. Still somewhat confused. Exam/Review of Systems Vital Signs Vitals Vital Signs Date Time Temp Pulse Resp B/P Pulse Ox O2 Delivery O2 Flow Rate FiO2 02/15/17 08:09 96 02/15/17 08:00 98.2 20 153/73 97 02/15/17 00:55 Room Air Intake and Output 02/14/17 02/14/17 02/15/17 15:00 23:00 07:00 Intake Total 427.5 ml 927.5 ml Balance 427.5 ml 927.5 ml Exam GENERAL: Patient is lying in bed, no acute distress. HEENT: Pupils equal, round, react to light. Extraocular muscles intact. NECK: Supple. No thyromegaly. LUNGS: Clear to auscultation bilaterally. CARDIOVASCULAR: S1, S2 heard. No rubs or gallops. ABDOMEN: Soft, nontender, nondistended. Normal bowel sounds. No rebound or guarding. MUSCULOSKELETAL: No lower extremity bilaterally. NEUROLOGIC: Some decreased strength in left lower extremity Results Result Diagram: 02/15/17 0539 02/15/17 0539 Results 24 hrs Laboratory Tests Test 02/14/17 12:26 02/15/17 05:39 Troponin I 0.028 White Blood Count 5.7 # Red Blood Count 3.85 L Hemoglobin 12.5 L Hematocrit 36.4 L Mean Corpuscular Volume 94.5 Mean Corpuscular Hemoglobin 32.5 Mean Corpuscular Hemoglobin Concent 34.3 Red Cell Distribution Width 13.7 Platelet Count 143 Mean Platelet Volume 8.9 Neutrophils % 63.0 Lymphocytes % 23.2 Monocytes % 10.2 Eosinophils % 0.2 Basophils % 0.4 Nucleated Red Blood Cells % 0.0 Neutrophils # 3.6 Lymphocytes # 1.3 Monocytes # 0.6 Eosinophils # 0.0 Basophils # 0.0 Nucleated Red Blood Cells # 0.0 Sodium Level 136 Potassium Level 3.4 L Chloride Level 104 Carbon Dioxide Level 28 Anion Gap 7 L Blood Urea Nitrogen 9 Creatinine 0.69 Glucose Level 84 # Calcium Level 7.8 L Medications Medications Current Medications Ondansetron HCl (Zofran Inj) 4 mg Q6H PRN IV NAUSEA AND/OR VOMITING; Start at 18:00 Acetaminophen (Tylenol Tab) 650 mg Q6H PRN PO PAIN LEVEL 1-3 OR FEVER; Start 02/13/17 at 18:00 Acetaminophen/ Hydrocodone Bitart ([place] (5/325)) 1 tab Q6H PRN PO MODERATE PAIN LEVEL 4-6; Start 02/13/17 at 18:00 Morphine Sulfate (morphine) 2 mg Q4H PRN IV SEVERE PAIN LEVEL 7-10; Start at 18:00 Docusate Sodium (Colace) 100 mg Q12H PRN PO CONSTIPATION; Start 02/13/17 at 18 :00 Magnesium Hydroxide (Milk Of Mag) 30 ml DAILY PRN PO CONSTIPATION; Start 02/13 at 18:00 Sodium Biphosphate/ Sodium Phosphate (Fleet Enema) 133 ml DAILY PRN [place] CONSTIPATION; Start 02/13/17 at 18:00 Lorazepam (Ativan) 0.5 mg Q6H PRN IV ANXIETY Last administered on 02/13/17 22 :41; Admin Dose 0.5 MG; Start 02/13/17 at 18:00 Hydralazine HCl (Apresoline) 10 mg Q6H PRN IV ELEVATED BLOOD PRESSURE; Start 02/13/17 at 18:00 Nitroglycerin 1 tab 1 tab Q5M PRN SL ANGINA; Start 02/13/17 at 18:00 Dextrose/Sodium Chloride (D5-1/2ns) 1,000 ml @ 75 mls/hr [id number] IV Last administered on 02/14/17 21:59; Admin Dose 75 MLS/HR; Start 02/14/17 at 07:30 Influenza Virus Vaccine 0.5 ml 0.5 ml ONCE ONCE IM* ; Start 02/16/17 at 08:00; Stop 02/16/17 at 08:01 Levetiracetam/ Dextrose (Keppra Iv/D5W) 102.5 ml @ 410 mls/hr Q12 IV Last administered on 02/15/17 10:21; Admin Dose 410 MLS/HR; Start 02/14/17 at 10: 00 Pantoprazole (Protonix Iv) 40 mg DAILY@06 IV Last administered on 02/15/17 06 :35; Admin Dose 40 MG; Start 02/15/17 at 06:00 Atorvastatin Calcium (Lipitor) 40 mg HS PO ; Start 02/14/17 at 09:55 Aspirin 300 mg 300 mg DAILY NM Last administered on 02/15/17 09:32; Admin Dose 300 MG; Start 02/14/17 at 16:00 Potassium Chloride (KCl 40 MEQ/250 ML NS) 250 ml @ 62.5 mls/hr ONCE ONCE IVPB ; Start 02/15/17 at 11:30; Stop 02/15/17 at 15:29 Procedures Procedures A. MRI brain with contrast: IMPRESSION: Severe motion degraded exam limited evaluation. Old right parietal craniotomy changes. Heterogenous enhancement of intracranial, right parietal-occipital lesions measuring a region of 5.5 x 5.5 x 5.5 cm most compatible with neoplasm. Correlation to patient history and prior outside studies would be helpful. There is marked surrounding right posterior cerebral vasogenic edema with partial effacement of the posterior body, atrium and occipital horn of the right lateral ventricle. There is mild leftward midline shift. The lesion contacts and may invade the superior sagittal sinus. Consider CT venogram of the brain for further evaluation. B. 2D ECHO: Conclusions 1. The left ventricle is normal in size and systolic function. 2. Estimated left ventricular ejection fraction of 55-60%. 3. Mild concentric left ventricular hypertrophy. Grade 1 diastolic dysfunction. 4. Mild aortic valve stenosis. IND[place] DANIEL. Feb 15, 2017 11:33
--- NOTE | 2017-02-15 11:33 | PN ---
Date/Time of Note Date/Time of Note DATE: 02/15/17 TIME: 11:24 Assessment/Plan VTE Prophylaxis VTE Prophylaxis Intervention: SCD's Lines/Catheters IV [facility] Type (from [facility]): Peripheral IV Urinary Cath still in place: No Assessment/Plan Chief Complaint/Hosp Course ASSESSMENT AND PLAN: 76-year-old male brought in after experiencing fall at home and also some right upper and lower extremity pain, also possible issues with finding nursing facility for patient. 1. Status post fall -MRI of the brain results are noted (see below). Carotid dopplers and ECHO performed as well (see below). -Continue neuro checks q.4 hours, permissive hypertension 1st 24 hrs. -f/u neurology and neurosurgery consult rec's, as well as Heme/Onc. Also have requested medical records from [facility] given the fact patient had brain surgery in February 2016 there, we need to get an idea what kind of tumor patient had. Spoke with son yesterday as well regarding this, he says patient was still getting care at [facility] with the department there, but could not remember the doctor's name nor the type of brain tumor patient had. Also spoke with counseling case manager about initiating transfer process for patient back to [facility], this is being worked on. -PT OT speech therapy consults 2. History of dementia. Continue monitor for now. 3. History of prostate cancer - Continue to monitor for now. Problems: Subjective 24 Hr Interval Summary Free Text/Dictation Patient transferred to telemetry for now, no acute events overnight. Had MRI with contrast performed of the brain. Seen by neurology team yesterday. Awaiting hematology oncology consult. Still somewhat confused. Exam/Review of Systems Vital Signs Vitals Vital Signs Date Time Temp Pulse Resp B/P Pulse Ox O2 Delivery O2 Flow Rate FiO2 02/15/17 08:09 96 02/15/17 08:00 98.2 20 153/73 97 02/15/17 00:55 Room Air Intake and Output 02/14/17 02/14/17 02/15/17 15:00 23:00 07:00 Intake Total 427.5 ml 927.5 ml Balance 427.5 ml 927.5 ml Exam GENERAL: Patient is lying in bed, no acute distress. HEENT: Pupils equal, round, react to light. Extraocular muscles intact. NECK: Supple. No thyromegaly. LUNGS: Clear to auscultation bilaterally. CARDIOVASCULAR: S1, S2 heard. No rubs or gallops. ABDOMEN: Soft, nontender, nondistended. Normal bowel sounds. No rebound or guarding. MUSCULOSKELETAL: No lower extremity bilaterally. NEUROLOGIC: Some decreased strength in left lower extremity Results Result Diagram: 02/15/17 0539 02/15/17 0539 Results 24 hrs Laboratory Tests Test 02/14/17 12:26 02/15/17 05:39 Troponin I 0.028 White Blood Count 5.7 # Red Blood Count 3.85 L Hemoglobin 12.5 L Hematocrit 36.4 L Mean Corpuscular Volume 94.5 Mean Corpuscular Hemoglobin 32.5 Mean Corpuscular Hemoglobin Concent 34.3 Red Cell Distribution Width 13.7 Platelet Count 143 Mean Platelet Volume 8.9 Neutrophils % 63.0 Lymphocytes % 23.2 Monocytes % 10.2 Eosinophils % 0.2 Basophils % 0.4 Nucleated Red Blood Cells % 0.0 Neutrophils # 3.6 Lymphocytes # 1.3 Monocytes # 0.6 Eosinophils # 0.0 Basophils # 0.0 Nucleated Red Blood Cells # 0.0 Sodium Level 136 Potassium Level 3.4 L Chloride Level 104 Carbon Dioxide Level 28 Anion Gap 7 L Blood Urea Nitrogen 9 Creatinine 0.69 Glucose Level 84 # Calcium Level 7.8 L Medications Medications Current Medications Ondansetron HCl (Zofran Inj) 4 mg Q6H PRN IV NAUSEA AND/OR VOMITING; Start at 18:00 Acetaminophen (Tylenol Tab) 650 mg Q6H PRN PO PAIN LEVEL 1-3 OR FEVER; Start 02/13/17 at 18:00 Acetaminophen/ Hydrocodone Bitart ([place] (5/325)) 1 tab Q6H PRN PO MODERATE PAIN LEVEL 4-6; Start 02/13/17 at 18:00 Morphine Sulfate (morphine) 2 mg Q4H PRN IV SEVERE PAIN LEVEL 7-10; Start at 18:00 Docusate Sodium (Colace) 100 mg Q12H PRN PO CONSTIPATION; Start 02/13/17 at 18 :00 Magnesium Hydroxide (Milk Of Mag) 30 ml DAILY PRN PO CONSTIPATION; Start 02/13 at 18:00 Sodium Biphosphate/ Sodium Phosphate (Fleet Enema) 133 ml DAILY PRN [place] CONSTIPATION; Start 02/13/17 at 18:00 Lorazepam (Ativan) 0.5 mg Q6H PRN IV ANXIETY Last administered on 02/13/17 22 :41; Admin Dose 0.5 MG; Start 02/13/17 at 18:00 Hydralazine HCl (Apresoline) 10 mg Q6H PRN IV ELEVATED BLOOD PRESSURE; Start 02/13/17 at 18:00 Nitroglycerin 1 tab 1 tab Q5M PRN SL ANGINA; Start 02/13/17 at 18:00 Dextrose/Sodium Chloride (D5-1/2ns) 1,000 ml @ 75 mls/hr [id number] IV Last administered on 02/14/17 21:59; Admin Dose 75 MLS/HR; Start 02/14/17 at 07:30 Influenza Virus Vaccine 0.5 ml 0.5 ml ONCE ONCE IM* ; Start 02/16/17 at 08:00; Stop 02/16/17 at 08:01 Levetiracetam/ Dextrose (Keppra Iv/D5W) 102.5 ml @ 410 mls/hr Q12 IV Last administered on 02/15/17 10:21; Admin Dose 410 MLS/HR; Start 02/14/17 at 10: 00 Pantoprazole (Protonix Iv) 40 mg DAILY@06 IV Last administered on 02/15/17 06 :35; Admin Dose 40 MG; Start 02/15/17 at 06:00 Atorvastatin Calcium (Lipitor) 40 mg HS PO ; Start 02/14/17 at 09:55 Aspirin 300 mg 300 mg DAILY SD Last administered on 02/15/17 09:32; Admin Dose 300 MG; Start 02/14/17 at 16:00 Potassium Chloride (KCl 40 MEQ/250 ML NS) 250 ml @ 62.5 mls/hr ONCE ONCE IVPB ; Start 02/15/17 at 11:30; Stop 02/15/17 at 15:29 Procedures Procedures A. MRI brain with contrast: IMPRESSION: Severe motion degraded exam limited evaluation. Old right parietal craniotomy changes. Heterogenous enhancement of intracranial, right parietal-occipital lesions measuring a region of 5.5 x 5.5 x 5.5 cm most compatible with neoplasm. Correlation to patient history and prior outside studies would be helpful. There is marked surrounding right posterior cerebral vasogenic edema with partial effacement of the posterior body, atrium and occipital horn of the right lateral ventricle. There is mild leftward midline shift. The lesion contacts and may invade the superior sagittal sinus. Consider CT venogram of the brain for further evaluation. B. 2D ECHO: Conclusions 1. The left ventricle is normal in size and systolic function. 2. Estimated left ventricular ejection fraction of 55-60%. 3. Mild concentric left ventricular hypertrophy. Grade 1 diastolic dysfunction. 4. Mild aortic valve stenosis. IND[place] DANIEL. Feb 15, 2017 11:33
--- NOTE | 2017-02-15 11:33 | PN ---
Date/Time of Note Date/Time of Note DATE: 02/15/17 TIME: 11:24 Assessment/Plan VTE Prophylaxis VTE Prophylaxis Intervention: SCD's Lines/Catheters IV [facility] Peripheral IV Urinary Cath still in place: No Assessment/Plan Chief Complaint/Hosp Course ASSESSMENT AND PLAN: 76-year-old male brought in after experiencing fall at home and also some right upper and lower extremity pain, also possible issues with finding nursing facility for patient. 1. Status post fall -MRI of the brain results are noted (see below). Carotid dopplers and ECHO performed as well (see below). -Continue neuro checks q.4 hours, permissive hypertension 1st 24 hrs. -f/u neurology and neurosurgery consult rec's, as well as Heme/Onc. Also have requested medical records from [facility] given the fact patient had brain surgery in February 2016 there, we need to get an idea what kind of tumor patient had. Spoke with son yesterday as well regarding this, he says patient was still getting care at [facility] with the department there, but could not remember the doctor's name nor the type of brain tumor patient had. Also spoke with child support case officer about initiating transfer process for patient back to [facility], this is being worked on. -PT OT speech therapy consults 2. History of dementia. Continue monitor for now. 3. History of prostate cancer - Continue to monitor for now. Problems: Subjective 24 Hr Interval Summary Free Text/Dictation Patient transferred to telemetry for now, no acute events overnight. Had MRI with contrast performed of the brain. Seen by neurology team yesterday. Awaiting hematology oncology consult. Still somewhat confused. Exam/Review of Systems Vital Signs Vitals Vital Signs Date Time Temp Pulse Resp B/P Pulse Ox O2 Delivery O2 Flow Rate FiO2 02/15/17 08:09 96 02/15/17 08:00 98.2 20 153/73 97 02/15/17 00:55 Room Air Intake and Output 02/14/17 02/14/17 02/15/17 15:00 23:00 07:00 Intake Total 427.5 ml 927.5 ml Balance 427.5 ml 927.5 ml Exam GENERAL: Patient is lying in bed, no acute distress. HEENT: Pupils equal, round, react to light. Extraocular muscles intact. NECK: Supple. No thyromegaly. LUNGS: Clear to auscultation bilaterally. CARDIOVASCULAR: S1, S2 heard. No rubs or gallops. ABDOMEN: Soft, nontender, nondistended. Normal bowel sounds. No rebound or guarding. MUSCULOSKELETAL: No lower extremity bilaterally. NEUROLOGIC: Some decreased strength in left lower extremity Results Result Diagram: 02/15/17 0539 02/15/17 0539 Results 24 hrs Laboratory Tests Test 02/14/17 12:26 02/15/17 05:39 Troponin I 0.028 White Blood Count 5.7 # Red Blood Count 3.85 L Hemoglobin 12.5 L Hematocrit 36.4 L Mean Corpuscular Volume 94.5 Mean Corpuscular Hemoglobin 32.5 Mean Corpuscular Hemoglobin Concent 34.3 Red Cell Distribution Width 13.7 Platelet Count 143 Mean Platelet Volume 8.9 Neutrophils % 63.0 Lymphocytes % 23.2 Monocytes % 10.2 Eosinophils % 0.2 Basophils % 0.4 Nucleated Red Blood Cells % 0.0 Neutrophils # 3.6 Lymphocytes # 1.3 Monocytes # 0.6 Eosinophils # 0.0 Basophils # 0.0 Nucleated Red Blood Cells # 0.0 Sodium Level 136 Potassium Level 3.4 L Chloride Level 104 Carbon Dioxide Level 28 Anion Gap 7 L Blood Urea Nitrogen 9 Creatinine 0.69 Glucose Level 84 # Calcium Level 7.8 L Medications Medications Current Medications Ondansetron HCl (Zofran Inj) 4 mg Q6H PRN IV NAUSEA AND/OR VOMITING; Start at 18:00 Acetaminophen (Tylenol Tab) 650 mg Q6H PRN PO PAIN LEVEL 1-3 OR FEVER; Start 02/13/17 at 18:00 Acetaminophen/ Hydrocodone Bitart ([place] (5/325)) 1 tab Q6H PRN PO MODERATE PAIN LEVEL 4-6; Start 02/13/17 at 18:00 Morphine Sulfate (morphine) 2 mg Q4H PRN IV SEVERE PAIN LEVEL 7-10; Start at 18:00 Docusate Sodium (Colace) 100 mg Q12H PRN PO CONSTIPATION; Start 02/13/17 at 18 :00 Magnesium Hydroxide (Milk Of Mag) 30 ml DAILY PRN PO CONSTIPATION; Start 02/13 at 18:00 Sodium Biphosphate/ Sodium Phosphate (Fleet Enema) 133 ml DAILY PRN [place] CONSTIPATION; Start 02/13/17 at 18:00 Lorazepam (Ativan) 0.5 mg Q6H PRN IV ANXIETY Last administered on 02/13/17 22 :41; Admin Dose 0.5 MG; Start 02/13/17 at 18:00 Hydralazine HCl (Apresoline) 10 mg Q6H PRN IV ELEVATED BLOOD PRESSURE; Start 02/13/17 at 18:00 Nitroglycerin 1 tab 1 tab Q5M PRN SL ANGINA; Start 02/13/17 at 18:00 Dextrose/Sodium Chloride (D5-1/2ns) 1,000 ml @ 75 mls/hr [id number] IV Last administered on 02/14/17 21:59; Admin Dose 75 MLS/HR; Start 02/14/17 at 07:30 Influenza Virus Vaccine 0.5 ml 0.5 ml ONCE ONCE IM* ; Start 02/16/17 at 08:00; Stop 02/16/17 at 08:01 Levetiracetam/ Dextrose (Keppra Iv/D5W) 102.5 ml @ 410 mls/hr Q12 IV Last administered on 02/15/17 10:21; Admin Dose 410 MLS/HR; Start 02/14/17 at 10: 00 Pantoprazole (Protonix Iv) 40 mg DAILY@06 IV Last administered on 02/15/17 06 :35; Admin Dose 40 MG; Start 02/15/17 at 06:00 Atorvastatin Calcium (Lipitor) 40 mg HS PO ; Start 02/14/17 at 09:55 Aspirin 300 mg 300 mg DAILY [place] Last administered on 02/15/17 09:32; Admin Dose 300 MG; Start 02/14/17 at 16:00 Potassium Chloride (KCl 40 MEQ/250 ML NS) 250 ml @ 62.5 mls/hr ONCE ONCE IVPB ; Start 02/15/17 at 11:30; Stop 02/15/17 at 15:29 Procedures Procedures A. MRI brain with contrast: IMPRESSION: Severe motion degraded exam limited evaluation. Old right parietal craniotomy changes. Heterogenous enhancement of intracranial, right parietal-occipital lesions measuring a region of 5.5 x 5.5 x 5.5 cm most compatible with neoplasm. Correlation to patient history and prior outside studies would be helpful. There is marked surrounding right posterior cerebral vasogenic edema with partial effacement of the posterior body, atrium and occipital horn of the right lateral ventricle. There is mild leftward midline shift. The lesion contacts and may invade the superior sagittal sinus. Consider CT venogram of the brain for further evaluation. B. 2D ECHO: Conclusions 1. The left ventricle is normal in size and systolic function. 2. Estimated left ventricular ejection fraction of 55-60%. 3. Mild concentric left ventricular hypertrophy. Grade 1 diastolic dysfunction. 4. Mild aortic valve stenosis. IND[place] DANIEL. Feb 15, 2017 11:33
--- NOTE | 2017-02-15 12:08 | CONS ---
Date/Time of Note Date/Time of Note DATE: 02/15/17 TIME: 11:58 Assessment/Plan Assessment/Plan Additional Assessment/Plan Large right parietal mass, evidently s/p prior attempted resection and xrt (per second hand report). Patient is not able to relay details of his personal history. Given that the patient is full code and this recurrent lesion is in a readily surgically accessible location, re-operation would presumably be indicated. However, the details (ie diagnosis, prior chemo/ XRT) are not available and surgical intervention is not emergent. I did try to call the patient's (Susan) at the home number on the patient's face sheet and I left a message for her to call me. If possible, the patient would benefit from transfer to [facility] for continuity of care purposes, or at a minimum outside records need to be made available for review. If the patient will need to be treated here (ie craniotomy), his MRI will need to be repeated as the contrast study performed is not interpretable. Consultation Date/Type/Reason Admit Date/Time Feb 13, 2017 at 17:59 Date of Consultation: Feb 15, 2017 Type of Consultation: neurosurgery Reason for Consultation brain tumor Patient is a 76 year old male full code with history of craniotomy (at [facility] in per report, no dx known) who was brought to ED by family after a fall at home. The patient was worked up in ED and found to have a >5cm right parietal mass. This is complex in nature, with both extra- and intra- axial components and some petechial hemorrhage. MRI with contrast was un-interpretable due to motion. Neurosurgery consult was requested for management recommendations. Psychological: nl mood/affect, no complaints Past Medical History Medical History: other (Dementia) Past Surgical History Past Surgical Hx: other (Brain tumor status post resection, carcinoma prostate) Social History Smoking Status: Former smoker Exam/Review of Systems Vital Signs Vitals Vital Signs Date Time Temp Pulse Resp B/P Pulse Ox O2 Delivery O2 Flow Rate FiO2 02/15/17 11:39 98.4 94 17 155/79 98 02/15/17 00:55 Room Air Intake and Output 02/14/17 02/14/17 02/15/17 15:00 23:00 07:00 Intake Total 427.5 ml 927.5 ml Balance 427.5 ml 927.5 ml Exam Constitutional: alert, frail, oriented Psych: no complaints Head: atraumatic, normocephalic Eyes: EOMI, nl conjunctiva, nl lids ENMT: nl external ears & nose, nl lips & teeth Neck: non-tender, supple Musculoskeletal: muscle weakness Extremities: normal pulses Neurological: [employer] II-XII intact Additional Comments 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 Results Result Diagram: 02/15/17 0539 02/15/17 0539 Results 24 hrs Laboratory Tests Test 02/14/17 12:26 02/15/17 05:39 Troponin I 0.028 White Blood Count 5.7 # Red Blood Count 3.85 L Hemoglobin 12.5 L Hematocrit 36.4 L Mean Corpuscular Volume 94.5 Mean Corpuscular Hemoglobin 32.5 Mean Corpuscular Hemoglobin Concent 34.3 Red Cell Distribution Width 13.7 Platelet Count 143 Mean Platelet Volume 8.9 Neutrophils % 63.0 Lymphocytes % 23.2 Monocytes % 10.2 Eosinophils % 0.2 Basophils % 0.4 Nucleated Red Blood Cells % 0.0 Neutrophils # 3.6 Lymphocytes # 1.3 Monocytes # 0.6 Eosinophils # 0.0 Basophils # 0.0 Nucleated Red Blood Cells # 0.0 Sodium Level 136 Potassium Level 3.4 L Chloride Level 104 Carbon Dioxide Level 28 Anion Gap 7 L Blood Urea Nitrogen 9 Creatinine 0.69 Glucose Level 84 # Calcium Level 7.8 L Medications Medications Current Medications Ondansetron HCl (Zofran Inj) 4 mg Q6H PRN IV NAUSEA AND/OR VOMITING; Start at 18:00 Acetaminophen (Tylenol Tab) 650 mg Q6H PRN PO PAIN LEVEL 1-3 OR FEVER; Start 02/13/17 at 18:00 Acetaminophen/ Hydrocodone Bitart ([place] (5/325)) 1 tab Q6H PRN PO MODERATE PAIN LEVEL 4-6; Start 02/13/17 at 18:00 Morphine Sulfate (morphine) 2 mg Q4H PRN IV SEVERE PAIN LEVEL 7-10; Start at 18:00 Docusate Sodium (Colace) 100 mg Q12H PRN PO CONSTIPATION; Start 02/13/17 at 18 :00 Magnesium Hydroxide (Milk Of Mag) 30 ml DAILY PRN PO CONSTIPATION; Start 02/13 at 18:00 Sodium Biphosphate/ Sodium Phosphate (Fleet Enema) 133 ml DAILY PRN [place] CONSTIPATION; Start 02/13/17 at 18:00 Lorazepam (Ativan) 0.5 mg Q6H PRN IV ANXIETY Last administered on 02/13/17 22 :41; Admin Dose 0.5 MG; Start 02/13/17 at 18:00 Hydralazine HCl (Apresoline) 10 mg Q6H PRN IV ELEVATED BLOOD PRESSURE; Start 02/13/17 at 18:00 Nitroglycerin 1 tab 1 tab Q5M PRN SL ANGINA; Start 02/13/17 at 18:00 Dextrose/Sodium Chloride (D5-1/2ns) 1,000 ml @ 75 mls/hr [id number] IV Last administered on 02/15/17 11:25; Admin Dose 75 MLS/HR; Start 02/14/17 at 07:30 Influenza Virus Vaccine 0.5 ml 0.5 ml ONCE ONCE IM* ; Start 02/16/17 at 08:00; Stop 02/16/17 at 08:01 Levetiracetam/ Dextrose (Keppra Iv/D5W) 102.5 ml @ 410 mls/hr Q12 IV Last administered on 02/15/17 10:21; Admin Dose 410 MLS/HR; Start 02/14/17 at 10: 00 Pantoprazole (Protonix Iv) 40 mg DAILY@06 IV Last administered on 02/15/17 06 :35; Admin Dose 40 MG; Start 02/15/17 at 06:00 Atorvastatin Calcium (Lipitor) 40 mg HS PO ; Start 02/14/17 at 09:55 Aspirin 300 mg 300 mg DAILY [place] Last administered on 02/15/17 09:32; Admin Dose 300 MG; Start 02/14/17 at 16:00 Potassium Chloride (KCl 40 MEQ/250 ML NS) 250 ml @ 62.5 mls/hr ONCE ONCE IVPB ; Start 02/15/17 at 11:30; Stop 02/15/17 at 15:29 PETER WYNN MD Feb 15, 2017 12:08
--- NOTE | 2017-02-15 12:08 | CONS ---
Date/Time of Note Date/Time of Note DATE: 02/15/17 TIME: 11:58 Assessment/Plan Assessment/Plan Additional Assessment/Plan Large right parietal mass, evidently s/p prior attempted resection and xrt (per second hand report). Patient is not able to relay details of his personal history. Given that the patient is full code and this recurrent lesion is in a readily surgically accessible location, re-operation would presumably be indicated. However, the details (ie diagnosis, prior chemo/ XRT) are not available and surgical intervention is not emergent. I did try to call the patient's (Susan) at the home number on the patient's face sheet and I left a message for her to call me. If possible, the patient would benefit from transfer to [facility] for continuity of care purposes, or at a minimum outside records need to be made available for review. If the patient will need to be treated here (ie craniotomy), his MRI will need to be repeated as the contrast study performed is not interpretable. Consultation Date/Type/Reason Admit Date/Time Feb 13, 2017 at 17:59 Date of Consultation: Feb 15, 2017 Type of Consultation: neurosurgery Reason for Consultation brain tumor Patient is a 76 year old male full code with history of craniotomy (at [facility] in per report, no dx known) who was brought to ED by family after a fall at home. The patient was worked up in ED and found to have a >5cm right parietal mass. This is complex in nature, with both extra- and intra- axial components and some petechial hemorrhage. MRI with contrast was un-interpretable due to motion. Neurosurgery consult was requested for management recommendations. Psychological: nl mood/affect, no complaints Past Medical History Medical History: other (Dementia) Past Surgical History Past Surgical Hx: other (Brain tumor status post resection, carcinoma prostate) Social History Smoking Status: Former smoker Exam/Review of Systems Vital Signs Vitals Vital Signs Date Time Temp Pulse Resp B/P Pulse Ox O2 Delivery O2 Flow Rate FiO2 02/15/17 11:39 98.4 94 17 155/79 98 02/15/17 00:55 Room Air Intake and Output 02/14/17 02/14/17 02/15/17 15:00 23:00 07:00 Intake Total 427.5 ml 927.5 ml Balance 427.5 ml 927.5 ml Exam Constitutional: alert, frail, oriented Psych: no complaints Head: atraumatic, normocephalic Eyes: EOMI, nl conjunctiva, nl lids ENMT: nl external ears & nose, nl lips & teeth Neck: non-tender, supple Musculoskeletal: muscle weakness Extremities: normal pulses Neurological: [employer] II-XII intact Additional Comments 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 Results Result Diagram: 02/15/17 0539 02/15/17 0539 Results 24 hrs Laboratory Tests Test 02/14/17 12:26 02/15/17 05:39 Troponin I 0.028 White Blood Count 5.7 # Red Blood Count 3.85 L Hemoglobin 12.5 L Hematocrit 36.4 L Mean Corpuscular Volume 94.5 Mean Corpuscular Hemoglobin 32.5 Mean Corpuscular Hemoglobin Concent 34.3 Red Cell Distribution Width 13.7 Platelet Count 143 Mean Platelet Volume 8.9 Neutrophils % 63.0 Lymphocytes % 23.2 Monocytes % 10.2 Eosinophils % 0.2 Basophils % 0.4 Nucleated Red Blood Cells % 0.0 Neutrophils # 3.6 Lymphocytes # 1.3 Monocytes # 0.6 Eosinophils # 0.0 Basophils # 0.0 Nucleated Red Blood Cells # 0.0 Sodium Level 136 Potassium Level 3.4 L Chloride Level 104 Carbon Dioxide Level 28 Anion Gap 7 L Blood Urea Nitrogen 9 Creatinine 0.69 Glucose Level 84 # Calcium Level 7.8 L Medications Medications Current Medications Ondansetron HCl (Zofran Inj) 4 mg Q6H PRN IV NAUSEA AND/OR VOMITING; Start at 18:00 Acetaminophen (Tylenol Tab) 650 mg Q6H PRN PO PAIN LEVEL 1-3 OR FEVER; Start 02/13/17 at 18:00 Acetaminophen/ Hydrocodone Bitart ([place] (5/325)) 1 tab Q6H PRN PO MODERATE PAIN LEVEL 4-6; Start 02/13/17 at 18:00 Morphine Sulfate (morphine) 2 mg Q4H PRN IV SEVERE PAIN LEVEL 7-10; Start at 18:00 Docusate Sodium (Colace) 100 mg Q12H PRN PO CONSTIPATION; Start 02/13/17 at 18 :00 Magnesium Hydroxide (Milk Of Mag) 30 ml DAILY PRN PO CONSTIPATION; Start 02/13 at 18:00 Sodium Biphosphate/ Sodium Phosphate (Fleet Enema) 133 ml DAILY PRN [place] CONSTIPATION; Start 02/13/17 at 18:00 Lorazepam (Ativan) 0.5 mg Q6H PRN IV ANXIETY Last administered on 02/13/17 22 :41; Admin Dose 0.5 MG; Start 02/13/17 at 18:00 Hydralazine HCl (Apresoline) 10 mg Q6H PRN IV ELEVATED BLOOD PRESSURE; Start 02/13/17 at 18:00 Nitroglycerin 1 tab 1 tab Q5M PRN SL ANGINA; Start 02/13/17 at 18:00 Dextrose/Sodium Chloride (D5-1/2ns) 1,000 ml @ 75 mls/hr [id number] IV Last administered on 02/15/17 11:25; Admin Dose 75 MLS/HR; Start 02/14/17 at 07:30 Influenza Virus Vaccine 0.5 ml 0.5 ml ONCE ONCE IM* ; Start 02/16/17 at 08:00; Stop 02/16/17 at 08:01 Levetiracetam/ Dextrose (Keppra Iv/D5W) 102.5 ml @ 410 mls/hr Q12 IV Last administered on 02/15/17 10:21; Admin Dose 410 MLS/HR; Start 02/14/17 at 10: 00 Pantoprazole (Protonix Iv) 40 mg DAILY@06 IV Last administered on 02/15/17 06 :35; Admin Dose 40 MG; Start 02/15/17 at 06:00 Atorvastatin Calcium (Lipitor) 40 mg HS PO ; Start 02/14/17 at 09:55 Aspirin 300 mg 300 mg DAILY [place] Last administered on 02/15/17 09:32; Admin Dose 300 MG; Start 02/14/17 at 16:00 Potassium Chloride (KCl 40 MEQ/250 ML NS) 250 ml @ 62.5 mls/hr ONCE ONCE IVPB ; Start 02/15/17 at 11:30; Stop 02/15/17 at 15:29 PETER WYNN MD Feb 15, 2017 12:08
--- NOTE | 2017-02-15 12:08 | CONS ---
Date/Time of Note Date/Time of Note DATE: 02/15/17 TIME: 11:58 Assessment/Plan Assessment/Plan Additional Assessment/Plan Large right parietal mass, evidently s/p prior attempted resection and xrt (per second hand report). Patient is not able to relay details of his personal history. Given that the patient is full code and this recurrent lesion is in a readily surgically accessible location, re-operation would presumably be indicated. However, the details (ie diagnosis, prior chemo/ XRT) are not available and surgical intervention is not emergent. I did try to call the patient's (Susan) at the home number on the patient's face sheet and I left a message for her to call me. If possible, the patient would benefit from transfer to [facility] for continuity of care purposes, or at a minimum outside records need to be made available for review. If the patient will need to be treated here (ie craniotomy), his MRI will need to be repeated as the contrast study performed is not interpretable. Consultation Date/Type/Reason Admit Date/Time Feb 13, 2017 at 17:59 Date of Consultation: Feb 15, 2017 Type of Consultation: neurosurgery Reason for Consultation brain tumor Patient is a 76 year old male full code with history of craniotomy (at [facility] in per report, no dx known) who was brought to ED by family after a fall at home. The patient was worked up in ED and found to have a >5cm right parietal mass. This is complex in nature, with both extra- and intra- axial components and some petechial hemorrhage. MRI with contrast was un-interpretable due to motion. Neurosurgery consult was requested for management recommendations. Psychological: nl mood/affect, no complaints Past Medical History Medical History: other (Dementia) Past Surgical History Past Surgical Hx: other (Brain tumor status post resection, carcinoma prostate) Social History Smoking Status: Former smoker Exam/Review of Systems Vital Signs Vitals Vital Signs Date Time Temp Pulse Resp B/P Pulse Ox O2 Delivery O2 Flow Rate FiO2 02/15/17 11:39 98.4 94 17 155/79 98 02/15/17 00:55 Room Air Intake and Output 02/14/17 02/14/17 02/15/17 15:00 23:00 07:00 Intake Total 427.5 ml 927.5 ml Balance 427.5 ml 927.5 ml Exam Constitutional: alert, frail, oriented Psych: no complaints Head: atraumatic, normocephalic Eyes: EOMI, nl conjunctiva, nl lids ENMT: nl external ears & nose, nl lips & teeth Neck: non-tender, supple Musculoskeletal: muscle weakness Extremities: normal pulses Neurological: [employer] II-XII intact Additional Comments 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 Results Result Diagram: 02/15/17 0539 02/15/17 0539 Results 24 hrs Laboratory Tests Test 02/14/17 12:26 02/15/17 05:39 Troponin I 0.028 White Blood Count 5.7 # Red Blood Count 3.85 L Hemoglobin 12.5 L Hematocrit 36.4 L Mean Corpuscular Volume 94.5 Mean Corpuscular Hemoglobin 32.5 Mean Corpuscular Hemoglobin Concent 34.3 Red Cell Distribution Width 13.7 Platelet Count 143 Mean Platelet Volume 8.9 Neutrophils % 63.0 Lymphocytes % 23.2 Monocytes % 10.2 Eosinophils % 0.2 Basophils % 0.4 Nucleated Red Blood Cells % 0.0 Neutrophils # 3.6 Lymphocytes # 1.3 Monocytes # 0.6 Eosinophils # 0.0 Basophils # 0.0 Nucleated Red Blood Cells # 0.0 Sodium Level 136 Potassium Level 3.4 L Chloride Level 104 Carbon Dioxide Level 28 Anion Gap 7 L Blood Urea Nitrogen 9 Creatinine 0.69 Glucose Level 84 # Calcium Level 7.8 L Medications Medications Current Medications Ondansetron HCl (Zofran Inj) 4 mg Q6H PRN IV NAUSEA AND/OR VOMITING; Start at 18:00 Acetaminophen (Tylenol Tab) 650 mg Q6H PRN PO PAIN LEVEL 1-3 OR FEVER; Start 02/13/17 at 18:00 Acetaminophen/ Hydrocodone Bitart ([place] (5/325)) 1 tab Q6H PRN PO MODERATE PAIN LEVEL 4-6; Start 02/13/17 at 18:00 Morphine Sulfate (morphine) 2 mg Q4H PRN IV SEVERE PAIN LEVEL 7-10; Start at 18:00 Docusate Sodium (Colace) 100 mg Q12H PRN PO CONSTIPATION; Start 02/13/17 at 18 :00 Magnesium Hydroxide (Milk Of Mag) 30 ml DAILY PRN PO CONSTIPATION; Start 02/13 at 18:00 Sodium Biphosphate/ Sodium Phosphate (Fleet Enema) 133 ml DAILY PRN [place] CONSTIPATION; Start 02/13/17 at 18:00 Lorazepam (Ativan) 0.5 mg Q6H PRN IV ANXIETY Last administered on 02/13/17 22 :41; Admin Dose 0.5 MG; Start 02/13/17 at 18:00 Hydralazine HCl (Apresoline) 10 mg Q6H PRN IV ELEVATED BLOOD PRESSURE; Start 02/13/17 at 18:00 Nitroglycerin 1 tab 1 tab Q5M PRN SL ANGINA; Start 02/13/17 at 18:00 Dextrose/Sodium Chloride (D5-1/2ns) 1,000 ml @ 75 mls/hr [id number] IV Last administered on 02/15/17 11:25; Admin Dose 75 MLS/HR; Start 02/14/17 at 07:30 Influenza Virus Vaccine 0.5 ml 0.5 ml ONCE ONCE IM* ; Start 02/16/17 at 08:00; Stop 02/16/17 at 08:01 Levetiracetam/ Dextrose (Keppra Iv/D5W) 102.5 ml @ 410 mls/hr Q12 IV Last administered on 02/15/17 10:21; Admin Dose 410 MLS/HR; Start 02/14/17 at 10: 00 Pantoprazole (Protonix Iv) 40 mg DAILY@06 IV Last administered on 02/15/17 06 :35; Admin Dose 40 MG; Start 02/15/17 at 06:00 Atorvastatin Calcium (Lipitor) 40 mg HS PO ; Start 02/14/17 at 09:55 Aspirin 300 mg 300 mg DAILY [place] Last administered on 02/15/17 09:32; Admin Dose 300 MG; Start 02/14/17 at 16:00 Potassium Chloride (KCl 40 MEQ/250 ML NS) 250 ml @ 62.5 mls/hr ONCE ONCE IVPB ; Start 02/15/17 at 11:30; Stop 02/15/17 at 15:29 PETER WYNN MD Feb 15, 2017 12:08
--- NOTE | 2017-02-15 16:22 | CONS ---
Date/Time of Note Date/Time of Note DATE: 02/15/17 TIME: 16:15 Assessment/Plan Assessment/Plan Chief Complaint/Hosp Course History of brain tumor, status post fall, right knee and elbow pain Problems: Additional Assessment/Plan Patient is a 76-year-old male with past medical history of brain tumor status post resection, carcinoma prostate, dementia was admitted following a fall. He was complaining of right knee and elbow pain. CT scan of the brain was unremarkable except for ventriculomegaly. 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 Neurology consult was called to evaluate his neurological status. Examination was limited but appeared nonfocal. 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 MRI of the brain with contrast showed severe motion degraded exam limited evaluation, old right parietal craniotomy changes, heterogenous enhancement of intracranial, right parietal-occipital lesions measuring a region of 5.5 x 5.5 x 5.5 cm most compatible with neoplasm, marked surrounding right posterior cerebral vasogenic edema with partial effacement of the posterior body, atrium and occipital horn of the right lateral ventricle with mild leftward midline shift, the lesion contacts and may invade the superior sagittal sinus. Plan 1 CT venogram 2 neurosurgical follow up or transfer to [facility] for higher level of care 3 Oncology evaluation pending 4 seizure precautions 5 Continue aspirin 300 mg [place] daily 6 continue Keppra 7 will follow Consultation Date/Type/Reason Admit Date/Time Feb 13, 2017 at 17:59 Initial Consult Date 02/15/17 Type of Consultation: neurosurgery Referring Provider: INDIA DANIEL 24 HR Interval Summary Free Text/Dictation Clinically unchanged. Patient has been seen by neurosurgery and because of insufficient information no immediate surgery is being planned. MRI of the brain with contrast showed Severe motion degraded exam limited evaluation, old right parietal craniotomy changes, heterogenous enhancement of intracranial, right parietal-occipital lesions measuring a region of 5.5 x 5.5 x 5.5 cm most compatible with neoplasm, marked surrounding right posterior cerebral vasogenic edema with partial effacement of the posterior body, atrium and occipital horn of the right lateral ventricle with mild leftward midline shift, the lesion contacts and may invade the superior sagittal sinus. Exam/Review of Systems Vital Signs Vitals Vital Signs Date Time Temp Pulse Resp B/P Pulse Ox O2 Delivery O2 Flow Rate FiO2 02/15/17 15:56 98.7 98 17 167/74 94 02/15/17 00:55 Room Air Intake and Output 02/14/17 02/14/17 02/15/17 14:59 22:59 06:59 Intake Total 427.5 ml 927.5 ml Balance 427.5 ml 927.5 ml Exam Constitutional: alert Psych: confusion Head: atraumatic, normocephalic Eyes: EOMI, nl conjunctiva ENMT: nl external ears & nose, nl lips & teeth, nl nasal mucosa & septum Neck: non-tender, supple Respiratory: clear to auscultation, normal air movement Cardiovascular: nl pulses, regular rate and rhythm Gastrointestinal: nl liver, spleen, non-tender, soft Neurological: DIRECT SUPPORT WORKER II-XII intact, other (Limited exam, moving all extremities) Results Result Diagram: 02/15/17 0539 02/15/17 0539 Results 24 hrs Laboratory Tests Test 02/15/17 05:39 White Blood Count 5.7 # Red Blood Count 3.85 L Hemoglobin 12.5 L Hematocrit 36.4 L Mean Corpuscular Volume 94.5 Mean Corpuscular Hemoglobin 32.5 Mean Corpuscular Hemoglobin Concent 34.3 Red Cell Distribution Width 13.7 Platelet Count 143 Mean Platelet Volume 8.9 Neutrophils % 63.0 Lymphocytes % 23.2 Monocytes % 10.2 Eosinophils % 0.2 Basophils % 0.4 Nucleated Red Blood Cells % 0.0 Neutrophils # 3.6 Lymphocytes # 1.3 Monocytes # 0.6 Eosinophils # 0.0 Basophils # 0.0 Nucleated Red Blood Cells # 0.0 Sodium Level 136 Potassium Level 3.4 L Chloride Level 104 Carbon Dioxide Level 28 Anion Gap 7 L Blood Urea Nitrogen 9 Creatinine 0.69 Glucose Level 84 # Calcium Level 7.8 L Medications Medications Current Medications Ondansetron HCl (Zofran Inj) 4 mg Q6H PRN IV NAUSEA AND/OR VOMITING; Start at 18:00 Acetaminophen (Tylenol Tab) 650 mg Q6H PRN PO PAIN LEVEL 1-3 OR FEVER; Start 02/13/17 at 18:00 Acetaminophen/ Hydrocodone Bitart ([place] (5/325)) 1 tab Q6H PRN PO MODERATE PAIN LEVEL 4-6; Start 02/13/17 at 18:00 Morphine Sulfate (morphine) 2 mg Q4H PRN IV SEVERE PAIN LEVEL 7-10; Start at 18:00 Docusate Sodium (Colace) 100 mg Q12H PRN PO CONSTIPATION; Start 02/13/17 at 18 :00 Magnesium Hydroxide (Milk Of Mag) 30 ml DAILY PRN PO CONSTIPATION; Start 02/13 at 18:00 Sodium Biphosphate/ Sodium Phosphate (Fleet Enema) 133 ml DAILY PRN [place] CONSTIPATION; Start 02/13/17 at 18:00 Lorazepam (Ativan) 0.5 mg Q6H PRN IV ANXIETY Last administered on 02/13/17 22 :41; Admin Dose 0.5 MG; Start 02/13/17 at 18:00 Hydralazine HCl (Apresoline) 10 mg Q6H PRN IV ELEVATED BLOOD PRESSURE; Start 02/13/17 at 18:00 Nitroglycerin 1 tab 1 tab Q5M PRN SL ANGINA; Start 02/13/17 at 18:00 Dextrose/Sodium Chloride (D5-1/2ns) 1,000 ml @ 75 mls/hr [id number] IV Last administered on 02/15/17 11:25; Admin Dose 75 MLS/HR; Start 02/14/17 at 07:30 Influenza Virus Vaccine 0.5 ml 0.5 ml ONCE ONCE IM* ; Start 02/16/17 at 08:00; Stop 02/16/17 at 08:01 Levetiracetam/ Dextrose (Keppra Iv/D5W) 102.5 ml @ 410 mls/hr Q12 IV Last administered on 02/15/17 10:21; Admin Dose 410 MLS/HR; Start 02/14/17 at 10: 00 Pantoprazole (Protonix Iv) 40 mg DAILY@06 IV Last administered on 02/15/17 06 :35; Admin Dose 40 MG; Start 02/15/17 at 06:00 Atorvastatin Calcium (Lipitor) 40 mg HS PO ; Start 02/14/17 at 09:55 Aspirin (Aspirin) 300 mg DAILY [place] Last administered on 02/15/17 09:32; Admin Dose 300 MG; Start 02/14/17 at 16:00 Procedures Procedures MRI of the brain with contrast IMPRESSION: Severe motion degraded exam limited evaluation. Old right parietal craniotomy changes. Heterogenous enhancement of intracranial, right parietal-occipital lesions measuring a region of 5.5 x 5.5 x 5.5 cm most compatible with neoplasm. Correlation to patient history and prior outside studies would be helpful. There is marked surrounding right posterior cerebral vasogenic edema with partial effacement of the posterior body, atrium and occipital horn of the right lateral ventricle. There is mild leftward midline shift. The lesion contacts and may invade the superior sagittal sinus. Consider CT venogram of the brain for further evaluation. RPTAT: AA .Vamsi Sotelo MD, MD Date Time Electronically viewed and signed by .Vamsi Sotelo MD, MD on 02/14/2017 19:25 ISAI ESPITIA MD Feb 15, 2017 16:22
--- NOTE | 2017-02-15 16:22 | CONS ---
Date/Time of Note Date/Time of Note DATE: 02/15/17 TIME: 16:15 Assessment/Plan Assessment/Plan Chief Complaint/Hosp Course History of brain tumor, status post fall, right knee and elbow pain Problems: Additional Assessment/Plan Patient is a 76-year-old male with past medical history of brain tumor status post resection, carcinoma prostate, dementia was admitted following a fall. He was complaining of right knee and elbow pain. CT scan of the brain was unremarkable except for ventriculomegaly. 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 Neurology consult was called to evaluate his neurological status. Examination was limited but appeared nonfocal. 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 MRI of the brain with contrast showed severe motion degraded exam limited evaluation, old right parietal craniotomy changes, heterogenous enhancement of intracranial, right parietal-occipital lesions measuring a region of 5.5 x 5.5 x 5.5 cm most compatible with neoplasm, marked surrounding right posterior cerebral vasogenic edema with partial effacement of the posterior body, atrium and occipital horn of the right lateral ventricle with mild leftward midline shift, the lesion contacts and may invade the superior sagittal sinus. Plan [address] venogram 2 neurosurgical follow up or transfer to [facility] for higher level of care 3 Oncology evaluation pending 4 seizure precautions 5 Continue aspirin 300 mg [place] daily 6 continue Keppra 7 will follow Consultation Date/Type/Reason Admit Date/Time Feb 13, 2017 at 17:59 Initial Consult Date 02/15/17 Type of Consultation: neurosurgery Referring Provider: INDIA DANIEL 24 HR Interval Summary Free Text/Dictation Clinically unchanged. Patient has been seen by neurosurgery and because of insufficient information no immediate surgery is being planned. MRI of the brain with contrast showed Severe motion degraded exam limited evaluation, old right parietal craniotomy changes, heterogenous enhancement of intracranial, right parietal-occipital lesions measuring a region of 5.5 x 5.5 x 5.5 cm most compatible with neoplasm, marked surrounding right posterior cerebral vasogenic edema with partial effacement of the posterior body, atrium and occipital horn of the right lateral ventricle with mild leftward midline shift, the lesion contacts and may invade the superior sagittal sinus. Exam/Review of Systems Vital Signs Vitals Vital Signs Date Time Temp Pulse Resp B/P Pulse Ox O2 Delivery O2 Flow Rate FiO2 02/15/17 15:56 98.7 98 17 167/74 94 02/15/17 00:55 Room Air Intake and Output 02/14/17 02/14/17 02/15/17 14:59 22:59 06:59 Intake Total 427.5 ml 927.5 ml Balance 427.5 ml 927.5 ml Exam Constitutional: alert Psych: confusion Head: atraumatic, normocephalic Eyes: EOMI, nl conjunctiva ENMT: nl external ears & nose, nl lips & teeth, nl nasal mucosa & septum Neck: non-tender, supple Respiratory: clear to auscultation, normal air movement Cardiovascular: nl pulses, regular rate and rhythm Gastrointestinal: nl liver, spleen, non-tender, soft Neurological: [employer] SWITCHBOARD OPERATOR II-XII intact, other (Limited exam, moving all extremities) Results Result Diagram: 02/15/17 0539 02/15/17 0539 Results 24 hrs Laboratory Tests Test 02/15/17 05:39 White Blood Count 5.7 # Red Blood Count 3.85 L Hemoglobin 12.5 L Hematocrit 36.4 L Mean Corpuscular Volume 94.5 Mean Corpuscular Hemoglobin 32.5 Mean Corpuscular Hemoglobin Concent 34.3 Red Cell Distribution Width 13.7 Platelet Count 143 Mean Platelet Volume 8.9 Neutrophils % 63.0 Lymphocytes % 23.2 Monocytes % 10.2 Eosinophils % 0.2 Basophils % 0.4 Nucleated Red Blood Cells % 0.0 Neutrophils # 3.6 Lymphocytes # 1.3 Monocytes # 0.6 Eosinophils # 0.0 Basophils # 0.0 Nucleated Red Blood Cells # 0.0 Sodium Level 136 Potassium Level 3.4 L Chloride Level 104 Carbon Dioxide Level 28 Anion Gap 7 L Blood Urea Nitrogen 9 Creatinine 0.69 Glucose Level 84 # Calcium Level 7.8 L Medications Medications Current Medications Ondansetron HCl (Zofran Inj) 4 mg Q6H PRN IV NAUSEA AND/OR VOMITING; Start at 18:00 Acetaminophen (Tylenol Tab) 650 mg Q6H PRN PO PAIN LEVEL 1-3 OR FEVER; Start 02/13/17 at 18:00 Acetaminophen/ Hydrocodone Bitart ([place] (5/325)) 1 tab Q6H PRN PO MODERATE PAIN LEVEL 4-6; Start 02/13/17 at 18:00 Morphine Sulfate (morphine) 2 mg Q4H PRN IV SEVERE PAIN LEVEL 7-10; Start at 18:00 Docusate Sodium (Colace) 100 mg Q12H PRN PO CONSTIPATION; Start 02/13/17 at 18 :00 Magnesium Hydroxide (Milk Of Mag) 30 ml DAILY PRN PO CONSTIPATION; Start 02/13 at 18:00 Sodium Biphosphate/ Sodium Phosphate (Fleet Enema) 133 ml DAILY PRN [place] CONSTIPATION; Start 02/13/17 at 18:00 Lorazepam (Ativan) 0.5 mg Q6H PRN IV ANXIETY Last administered on 02/13/17 22 :41; Admin Dose 0.5 MG; Start 02/13/17 at 18:00 Hydralazine HCl (Apresoline) 10 mg Q6H PRN IV ELEVATED BLOOD PRESSURE; Start 02/13/17 at 18:00 Nitroglycerin 1 tab 1 tab Q5M PRN SL ANGINA; Start 02/13/17 at 18:00 Dextrose/Sodium Chloride (D5-1/2ns) 1,000 ml @ 75 mls/hr [id number] IV Last administered on 02/15/17 11:25; Admin Dose 75 MLS/HR; Start 02/14/17 at 07:30 Influenza Virus Vaccine 0.5 ml 0.5 ml ONCE ONCE IM* ; Start 02/16/17 at 08:00; Stop 02/16/17 at 08:01 Levetiracetam/ Dextrose (Keppra Iv/D5W) 102.5 ml @ 410 mls/hr Q12 IV Last administered on 02/15/17 10:21; Admin Dose 410 MLS/HR; Start 02/14/17 at 10: 00 Pantoprazole (Protonix Iv) 40 mg DAILY@06 IV Last administered on 02/15/17 06 :35; Admin Dose 40 MG; Start 02/15/17 at 06:00 Atorvastatin Calcium (Lipitor) 40 mg HS PO ; Start 02/14/17 at 09:55 Aspirin (Aspirin) 300 mg DAILY [place] Last administered on 02/15/17 09:32; Admin Dose 300 MG; Start 02/14/17 at 16:00 Procedures Procedures MRI of the brain with contrast IMPRESSION: Severe motion degraded exam limited evaluation. Old right parietal craniotomy changes. Heterogenous enhancement of intracranial, right parietal-occipital lesions measuring a region of 5.5 x 5.5 x 5.5 cm most compatible with neoplasm. Correlation to patient history and prior outside studies would be helpful. There is marked surrounding right posterior cerebral vasogenic edema with partial effacement of the posterior body, atrium and occipital horn of the right lateral ventricle. There is mild leftward midline shift. The lesion contacts and may invade the superior sagittal sinus. Consider CT venogram of the brain for further evaluation. RPTAT: AA .Vamsi Sotelo MD, MD Date Time Electronically viewed and signed by .Vamsi Sotelo MD, MD on 02/14/2017 19:25 ISAI ESPITIA MD Feb 15, 2017 16:22
--- NOTE | 2017-02-15 16:22 | CONS ---
Date/Time of Note Date/Time of Note DATE: 02/15/17 TIME: 16:15 Assessment/Plan Assessment/Plan Chief Complaint/Hosp Course History of brain tumor, status post fall, right knee and elbow pain Problems: Additional Assessment/Plan Patient is a 76-year-old male with past medical history of brain tumor status post resection, carcinoma prostate, dementia was admitted following a fall. He was complaining of right knee and elbow pain. CT scan of the brain was unremarkable except for ventriculomegaly. 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 Neurology consult was called to evaluate his neurological status. Examination was limited but appeared nonfocal. 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 MRI of the brain with contrast showed severe motion degraded exam limited evaluation, old right parietal craniotomy changes, heterogenous enhancement of intracranial, right parietal-occipital lesions measuring a region of 5.5 x 5.5 x 5.5 cm most compatible with neoplasm, marked surrounding right posterior cerebral vasogenic edema with partial effacement of the posterior body, atrium and occipital horn of the right lateral ventricle with mild leftward midline shift, the lesion contacts and may invade the superior sagittal sinus. Plan [address] CT venogram 2 neurosurgical follow up or transfer to [facility] for higher level of care 3 Oncology evaluation pending 4 seizure precautions 5 Continue aspirin 300 mg [place] daily 6 continue Keppra 7 will follow Consultation Date/Type/Reason Admit Date/Time Feb 13, 2017 at 17:59 Initial Consult Date 02/15/17 Type of Consultation: neurosurgery Referring Provider: INDIA DANIEL 24 HR Interval Summary Free Text/Dictation Clinically unchanged. Patient has been seen by neurosurgery and because of insufficient information no immediate surgery is being planned. MRI of the brain with contrast showed Severe motion degraded exam limited evaluation, old right parietal craniotomy changes, heterogenous enhancement of intracranial, right parietal-occipital lesions measuring a region of 5.5 x 5.5 x 5.5 cm most compatible with neoplasm, marked surrounding right posterior cerebral vasogenic edema with partial effacement of the posterior body, atrium and occipital horn of the right lateral ventricle with mild leftward midline shift, the lesion contacts and may invade the superior sagittal sinus. Exam/Review of Systems Vital Signs Vitals Vital Signs Date Time Temp Pulse Resp B/P Pulse Ox O2 Delivery O2 Flow Rate FiO2 02/15/17 15:56 98.7 98 17 167/74 94 02/15/17 00:55 Room Air Intake and Output 02/14/17 02/14/17 02/15/17 14:59 22:59 06:59 Intake Total 427.5 ml 927.5 ml Balance 427.5 ml 927.5 ml Exam Constitutional: alert Psych: confusion Head: atraumatic, normocephalic Eyes: EOMI, nl conjunctiva ENMT: nl external ears & nose, nl lips & teeth, nl nasal mucosa & septum Neck: non-tender, supple Respiratory: clear to auscultation, normal air movement Cardiovascular: nl pulses, regular rate and rhythm Gastrointestinal: nl liver, spleen, non-tender, soft Neurological: TRAUMA DOCTOR II-XII intact, other (Limited exam, moving all extremities) Results Result Diagram: 02/15/17 0539 02/15/17 0539 Results 24 hrs Laboratory Tests Test 02/15/17 05:39 White Blood Count 5.7 # Red Blood Count 3.85 L Hemoglobin 12.5 L Hematocrit 36.4 L Mean Corpuscular Volume 94.5 Mean Corpuscular Hemoglobin 32.5 Mean Corpuscular Hemoglobin Concent 34.3 Red Cell Distribution Width 13.7 Platelet Count 143 Mean Platelet Volume 8.9 Neutrophils % 63.0 Lymphocytes % 23.2 Monocytes % 10.2 Eosinophils % 0.2 Basophils % 0.4 Nucleated Red Blood Cells % 0.0 Neutrophils # 3.6 Lymphocytes # 1.3 Monocytes # 0.6 Eosinophils # 0.0 Basophils # 0.0 Nucleated Red Blood Cells # 0.0 Sodium Level 136 Potassium Level 3.4 L Chloride Level 104 Carbon Dioxide Level 28 Anion Gap 7 L Blood Urea Nitrogen 9 Creatinine 0.69 Glucose Level 84 # Calcium Level 7.8 L Medications Medications Current Medications Ondansetron HCl (Zofran Inj) 4 mg Q6H PRN IV NAUSEA AND/OR VOMITING; Start at 18:00 Acetaminophen (Tylenol Tab) 650 mg Q6H PRN PO PAIN LEVEL 1-3 OR FEVER; Start 02/13/17 at 18:00 Acetaminophen/ Hydrocodone Bitart ([place] (5/325)) 1 tab Q6H PRN PO MODERATE PAIN LEVEL 4-6; Start 02/13/17 at 18:00 Morphine Sulfate (morphine) 2 mg Q4H PRN IV SEVERE PAIN LEVEL 7-10; Start at 18:00 Docusate Sodium (Colace) 100 mg Q12H PRN PO CONSTIPATION; Start 02/13/17 at 18 :00 Magnesium Hydroxide (Milk Of Mag) 30 ml DAILY PRN PO CONSTIPATION; Start 02/13 at 18:00 Sodium Biphosphate/ Sodium Phosphate (Fleet Enema) 133 ml DAILY PRN [place] CONSTIPATION; Start 02/13/17 at 18:00 Lorazepam (Ativan) 0.5 mg Q6H PRN IV ANXIETY Last administered on 02/13/17 22 :41; Admin Dose 0.5 MG; Start 02/13/17 at 18:00 Hydralazine HCl (Apresoline) 10 mg Q6H PRN IV ELEVATED BLOOD PRESSURE; Start 02/13/17 at 18:00 Nitroglycerin 1 tab 1 tab Q5M PRN SL ANGINA; Start 02/13/17 at 18:00 Dextrose/Sodium Chloride (D5-1/2ns) 1,000 ml @ 75 mls/hr [id number] IV Last administered on 02/15/17 11:25; Admin Dose 75 MLS/HR; Start 02/14/17 at 07:30 Influenza Virus Vaccine 0.5 ml 0.5 ml ONCE ONCE IM* ; Start 02/16/17 at 08:00; Stop 02/16/17 at 08:01 Levetiracetam/ Dextrose (Keppra Iv/D5W) 102.5 ml @ 410 mls/hr Q12 IV Last administered on 02/15/17 10:21; Admin Dose 410 MLS/HR; Start 02/14/17 at 10: 00 Pantoprazole (Protonix Iv) 40 mg DAILY@06 IV Last administered on 02/15/17 06 :35; Admin Dose 40 MG; Start 02/15/17 at 06:00 Atorvastatin Calcium (Lipitor) 40 mg HS PO ; Start 02/14/17 at 09:55 Aspirin (Aspirin) 300 mg DAILY [place] Last administered on 02/15/17 09:32; Admin Dose 300 MG; Start 02/14/17 at 16:00 Procedures Procedures MRI of the brain with contrast IMPRESSION: Severe motion degraded exam limited evaluation. Old right parietal craniotomy changes. Heterogenous enhancement of intracranial, right parietal-occipital lesions measuring a region of 5.5 x 5.5 x 5.5 cm most compatible with neoplasm. Correlation to patient history and prior outside studies would be helpful. There is marked surrounding right posterior cerebral vasogenic edema with partial effacement of the posterior body, atrium and occipital horn of the right lateral ventricle. There is mild leftward midline shift. The lesion contacts and may invade the superior sagittal sinus. Consider CT venogram of the brain for further evaluation. RPTAT: AA .Vamsi Sotelo MD, MD Date Time Electronically viewed and signed by .Vamsi Sotelo MD, MD on 02/14/2017 19:25 ISAI ESPITIA MD Feb 15, 2017 16:22
[2017-02-15] MEDS ORDERED: IOHEXOL 350MG/ML 50 ML BTL ONE (20:03)
[2017-02-15] MEDS ORDERED: SOD CHLORIDE 0.9% 0 ML ONE (20:03)
[2017-02-15] MEDS ORDERED: IOHEXOL 0 ML ONE (20:03)
--- NOTE | 2017-02-15 20:24 | CONS ---
Date/Time of Note Date/Time of Note DATE: 02/15/17 TIME: 20:24 Consultation Date/Type/Reason Admit Date/Time Feb 13, 2017 at 17:59 Psychological: confusion Past Medical History Medical History: other (Dementia) Past Surgical History Past Surgical Hx: other (Brain tumor status post resection, carcinoma prostate) Social History Smoking Status: Former smoker Exam/Review of Systems Vital Signs Vitals Vital Signs Date Time Temp Pulse Resp B/P Pulse Ox O2 Delivery O2 Flow Rate FiO2 02/15/17 20:15 91 02/15/17 19:38 97.6 16 141/75 96 02/15/17 00:55 Room Air Intake and Output 02/14/17 02/14/17 02/15/17 15:00 23:00 07:00 Intake Total 427.5 ml 927.5 ml Balance 427.5 ml 927.5 ml Results Result Diagram: 02/15/17 0539 02/15/17 0539 Results 24 hrs Laboratory Tests Test 02/15/17 05:39 White Blood Count 5.7 # Red Blood Count 3.85 L Hemoglobin 12.5 L Hematocrit 36.4 L Mean Corpuscular Volume 94.5 Mean Corpuscular Hemoglobin 32.5 Mean Corpuscular Hemoglobin Concent 34.3 Red Cell Distribution Width 13.7 Platelet Count 143 Mean Platelet Volume 8.9 Neutrophils % 63.0 Lymphocytes % 23.2 Monocytes % 10.2 Eosinophils % 0.2 Basophils % 0.4 Nucleated Red Blood Cells % 0.0 Neutrophils # 3.6 Lymphocytes # 1.3 Monocytes # 0.6 Eosinophils # 0.0 Basophils # 0.0 Nucleated Red Blood Cells # 0.0 Sodium Level 136 Potassium Level 3.4 L Chloride Level 104 Carbon Dioxide Level 28 Anion Gap 7 L Blood Urea Nitrogen 9 Creatinine 0.69 Glucose Level 84 # Calcium Level 7.8 L Medications Medications Current Medications Ondansetron HCl (Zofran Inj) 4 mg Q6H PRN IV NAUSEA AND/OR VOMITING; Start at 18:00 Acetaminophen (Tylenol Tab) 650 mg Q6H PRN PO PAIN LEVEL 1-3 OR FEVER; Start 02/13/17 at 18:00 Acetaminophen/ Hydrocodone Bitart ([place] (5/325)) 1 tab Q6H PRN PO MODERATE PAIN LEVEL 4-6; Start 02/13/17 at 18:00 Morphine Sulfate (morphine) 2 mg Q4H PRN IV SEVERE PAIN LEVEL 7-10; Start at 18:00 Docusate Sodium (Colace) 100 mg Q12H PRN PO CONSTIPATION; Start 02/13/17 at 18 :00 Magnesium Hydroxide (Milk Of Mag) 30 ml DAILY PRN PO CONSTIPATION; Start 02/13 at 18:00 Sodium Biphosphate/ Sodium Phosphate (Fleet Enema) 133 ml DAILY PRN [place] CONSTIPATION; Start 02/13/17 at 18:00 Lorazepam (Ativan) 0.5 mg Q6H PRN IV ANXIETY Last administered on 02/13/17 22 :41; Admin Dose 0.5 MG; Start 02/13/17 at 18:00 Hydralazine HCl (Apresoline) 10 mg Q6H PRN IV ELEVATED BLOOD PRESSURE; Start 02/13/17 at 18:00 Nitroglycerin 1 tab 1 tab Q5M PRN SL ANGINA; Start 02/13/17 at 18:00 Dextrose/Sodium Chloride (D5-1/2ns) 1,000 ml @ 75 mls/hr [id number] IV Last administered on 02/15/17 11:25; Admin Dose 75 MLS/HR; Start 02/14/17 at 07:30 Influenza Virus Vaccine 0.5 ml 0.5 ml ONCE ONCE IM* ; Start 02/16/17 at 08:00; Stop 02/16/17 at 08:01 Levetiracetam/ Dextrose (Keppra Iv/D5W) 102.5 ml @ 410 mls/hr Q12 IV Last administered on 02/15/17 19:59; Admin Dose 410 MLS/HR; Start 02/14/17 at 10: 00 Pantoprazole (Protonix Iv) 40 mg DAILY@06 IV Last administered on 02/15/17 06 :35; Admin Dose 40 MG; Start 02/15/17 at 06:00 Atorvastatin Calcium (Lipitor) 40 mg HS PO ; Start 02/14/17 at 09:55 Aspirin (Aspirin) 300 mg DAILY [place] Last administered on 02/15/17 09:32; Admin Dose 300 MG; Start 02/14/17 at 16:00 RAYMUNDO SANTOS MD Feb 15, 2017 20:24
--- NOTE | 2017-02-15 20:24 | CONS ---
Date/Time of Note Date/Time of Note DATE: 02/15/17 TIME: 20:24 Consultation Date/Type/Reason Admit Date/Time Feb 13, 2017 at 17:59 Psychological: confusion Past Medical History Medical History: other (Dementia) Past Surgical History Past Surgical Hx: other (Brain tumor status post resection, carcinoma prostate) Social History Smoking Status: Former smoker Exam/Review of Systems Vital Signs Vitals Vital Signs Date Time Temp Pulse Resp B/P Pulse Ox O2 Delivery O2 Flow Rate FiO2 02/15/17 20:15 91 02/15/17 19:38 97.6 16 141/75 96 02/15/17 00:55 Room Air Intake and Output 02/14/17 02/14/17 02/15/17 15:00 23:00 07:00 Intake Total 427.5 ml 927.5 ml Balance 427.5 ml 927.5 ml Results Result Diagram: 02/15/17 0539 02/15/17 0539 Results 24 hrs Laboratory Tests Test 02/15/17 05:39 White Blood Count 5.7 # Red Blood Count 3.85 L Hemoglobin 12.5 L Hematocrit 36.4 L Mean Corpuscular Volume 94.5 Mean Corpuscular Hemoglobin 32.5 Mean Corpuscular Hemoglobin Concent 34.3 Red Cell Distribution Width 13.7 Platelet Count 143 Mean Platelet Volume 8.9 Neutrophils % 63.0 Lymphocytes % 23.2 Monocytes % 10.2 Eosinophils % 0.2 Basophils % 0.4 Nucleated Red Blood Cells % 0.0 Neutrophils # 3.6 Lymphocytes # 1.3 Monocytes # 0.6 Eosinophils # 0.0 Basophils # 0.0 Nucleated Red Blood Cells # 0.0 Sodium Level 136 Potassium Level 3.4 L Chloride Level 104 Carbon Dioxide Level 28 Anion Gap 7 L Blood Urea Nitrogen 9 Creatinine 0.69 Glucose Level 84 # Calcium Level 7.8 L Medications Medications Current Medications Ondansetron HCl (Zofran Inj) 4 mg Q6H PRN IV NAUSEA AND/OR VOMITING; Start at 18:00 Acetaminophen (Tylenol Tab) 650 mg Q6H PRN PO PAIN LEVEL 1-3 OR FEVER; Start 02/13/17 at 18:00 Acetaminophen/ Hydrocodone Bitart ([place] (5/325)) 1 tab Q6H PRN PO MODERATE PAIN LEVEL 4-6; Start 02/13/17 at 18:00 Morphine Sulfate (morphine) 2 mg Q4H PRN IV SEVERE PAIN LEVEL 7-10; Start at 18:00 Docusate Sodium (Colace) 100 mg Q12H PRN PO CONSTIPATION; Start 02/13/17 at 18 :00 Magnesium Hydroxide (Milk Of Mag) 30 ml DAILY PRN PO CONSTIPATION; Start 02/13 at 18:00 Sodium Biphosphate/ Sodium Phosphate (Fleet Enema) 133 ml DAILY PRN [place] CONSTIPATION; Start 02/13/17 at 18:00 Lorazepam (Ativan) 0.5 mg Q6H PRN IV ANXIETY Last administered on 02/13/17 22 :41; Admin Dose 0.5 MG; Start 02/13/17 at 18:00 Hydralazine HCl (Apresoline) 10 mg Q6H PRN IV ELEVATED BLOOD PRESSURE; Start 02/13/17 at 18:00 Nitroglycerin 1 tab 1 tab Q5M PRN SL ANGINA; Start 02/13/17 at 18:00 Dextrose/Sodium Chloride (D5-1/2ns) 1,000 ml @ 75 mls/hr [id number] IV Last administered on 02/15/17 11:25; Admin Dose 75 MLS/HR; Start 02/14/17 at 07:30 Influenza Virus Vaccine 0.5 ml 0.5 ml ONCE ONCE IM* ; Start 02/16/17 at 08:00; Stop 02/16/17 at 08:01 Levetiracetam/ Dextrose (Keppra Iv/D5W) 102.5 ml @ 410 mls/hr Q12 IV Last administered on 02/15/17 19:59; Admin Dose 410 MLS/HR; Start 02/14/17 at 10: 00 Pantoprazole (Protonix Iv) 40 mg DAILY@06 IV Last administered on 02/15/17 06 :35; Admin Dose 40 MG; Start 02/15/17 at 06:00 Atorvastatin Calcium (Lipitor) 40 mg HS PO ; Start 02/14/17 at 09:55 Aspirin (Aspirin) 300 mg DAILY [place] Last administered on 02/15/17 09:32; Admin Dose 300 MG; Start 02/14/17 at 16:00 RAYMUNDO SANTOS MD Feb 15, 2017 20:24
--- NOTE | 2017-02-15 20:24 | CONS ---
Date/Time of Note Date/Time of Note DATE: 02/15/17 TIME: 20:24 Consultation Date/Type/Reason Admit Date/Time Feb 13, 2017 at 17:59 Psychological: confusion Past Medical History Medical History: other (Dementia) Past Surgical History Past Surgical Hx: other (Brain tumor status post resection, carcinoma prostate) Social History Smoking Status: Former smoker Exam/Review of Systems Vital Signs Vitals Vital Signs Date Time Temp Pulse Resp B/P Pulse Ox O2 Delivery O2 Flow Rate FiO2 02/15/17 20:15 91 02/15/17 19:38 97.6 16 141/75 96 02/15/17 00:55 Room Air Intake and Output 02/14/17 02/14/17 02/15/17 15:00 23:00 07:00 Intake Total 427.5 ml 927.5 ml Balance 427.5 ml 927.5 ml Results Result Diagram: 02/15/17 0539 02/15/17 0539 Results 24 hrs Laboratory Tests Test 02/15/17 05:39 White Blood Count 5.7 # Red Blood Count 3.85 L Hemoglobin 12.5 L Hematocrit 36.4 L Mean Corpuscular Volume 94.5 Mean Corpuscular Hemoglobin 32.5 Mean Corpuscular Hemoglobin Concent 34.3 Red Cell Distribution Width 13.7 Platelet Count 143 Mean Platelet Volume 8.9 Neutrophils % 63.0 Lymphocytes % 23.2 Monocytes % 10.2 Eosinophils % 0.2 Basophils % 0.4 Nucleated Red Blood Cells % 0.0 Neutrophils # 3.6 Lymphocytes # 1.3 Monocytes # 0.6 Eosinophils # 0.0 Basophils # 0.0 Nucleated Red Blood Cells # 0.0 Sodium Level 136 Potassium Level 3.4 L Chloride Level 104 Carbon Dioxide Level 28 Anion Gap 7 L Blood Urea Nitrogen 9 Creatinine 0.69 Glucose Level 84 # Calcium Level 7.8 L Medications Medications Current Medications Ondansetron HCl (Zofran Inj) 4 mg Q6H PRN IV NAUSEA AND/OR VOMITING; Start at 18:00 Acetaminophen (Tylenol Tab) 650 mg Q6H PRN PO PAIN LEVEL 1-3 OR FEVER; Start 02/13/17 at 18:00 Acetaminophen/ Hydrocodone Bitart ([place] (5/325)) 1 tab Q6H PRN PO MODERATE PAIN LEVEL 4-6; Start 02/13/17 at 18:00 Morphine Sulfate (morphine) 2 mg Q4H PRN IV SEVERE PAIN LEVEL 7-10; Start at 18:00 Docusate Sodium (Colace) 100 mg Q12H PRN PO CONSTIPATION; Start 02/13/17 at 18 :00 Magnesium Hydroxide (Milk Of Mag) 30 ml DAILY PRN PO CONSTIPATION; Start 02/13 at 18:00 Sodium Biphosphate/ Sodium Phosphate (Fleet Enema) 133 ml DAILY PRN [place] CONSTIPATION; Start 02/13/17 at 18:00 Lorazepam (Ativan) 0.5 mg Q6H PRN IV ANXIETY Last administered on 02/13/17 22 :41; Admin Dose 0.5 MG; Start 02/13/17 at 18:00 Hydralazine HCl (Apresoline) 10 mg Q6H PRN IV ELEVATED BLOOD PRESSURE; Start 02/13/17 at 18:00 Nitroglycerin 1 tab 1 tab Q5M PRN SL ANGINA; Start 02/13/17 at 18:00 Dextrose/Sodium Chloride (D5-1/2ns) 1,000 ml @ 75 mls/hr [id number] IV Last administered on 02/15/17 11:25; Admin Dose 75 MLS/HR; Start 02/14/17 at 07:30 Influenza Virus Vaccine 0.5 ml 0.5 ml ONCE ONCE IM* ; Start 02/16/17 at 08:00; Stop 02/16/17 at 08:01 Levetiracetam/ Dextrose (Keppra Iv/D5W) 102.5 ml @ 410 mls/hr Q12 IV Last administered on 02/15/17 19:59; Admin Dose 410 MLS/HR; Start 02/14/17 at 10: 00 Pantoprazole (Protonix Iv) 40 mg DAILY@06 IV Last administered on 02/15/17 06 :35; Admin Dose 40 MG; Start 02/15/17 at 06:00 Atorvastatin Calcium (Lipitor) 40 mg HS PO ; Start 02/14/17 at 09:55 Aspirin (Aspirin) 300 mg DAILY [place] Last administered on 02/15/17 09:32; Admin Dose 300 MG; Start 02/14/17 at 16:00 RAYMUNDO SANTOS MD Feb 15, 2017 20:24
--- NOTE | 2017-02-15 20:25 | CONS ---
Date/Time of Note Date/Time of Note DATE: 02/15/17 TIME: 20:24 Consultation Date/Type/Reason Admit Date/Time Feb 15, 2017 at 13:43 Initial Consult Date 02/15/17 Type of Consultation: [facility] Referring Provider: INDIA DANIEL Exam/Review of Systems Vital Signs Vitals Vital Signs Date Time Temp Pulse Resp B/P Pulse Ox O2 Delivery O2 Flow Rate FiO2 02/15/17 20:15 91 02/15/17 19:38 97.6 16 141/75 96 02/15/17 00:55 Room Air Intake and Output 02/14/17 02/14/17 02/15/17 15:00 23:00 07:00 Intake Total 427.5 ml 927.5 ml Balance 427.5 ml 927.5 ml Results Result Diagram: 02/15/17 0539 02/15/17 0539 Results 24 hrs Laboratory Tests Test 02/15/17 05:39 White Blood Count 5.7 # Red Blood Count 3.85 L Hemoglobin 12.5 L Hematocrit 36.4 L Mean Corpuscular Volume 94.5 Mean Corpuscular Hemoglobin 32.5 Mean Corpuscular Hemoglobin Concent 34.3 Red Cell Distribution Width 13.7 Platelet Count 143 Mean Platelet Volume 8.9 Neutrophils % 63.0 Lymphocytes % 23.2 Monocytes % 10.2 Eosinophils % 0.2 Basophils % 0.4 Nucleated Red Blood Cells % 0.0 Neutrophils # 3.6 Lymphocytes # 1.3 Monocytes # 0.6 Eosinophils # 0.0 Basophils # 0.0 Nucleated Red Blood Cells # 0.0 Sodium Level 136 Potassium Level 3.4 L Chloride Level 104 Carbon Dioxide Level 28 Anion Gap 7 L Blood Urea Nitrogen 9 Creatinine 0.69 Glucose Level 84 # Calcium Level 7.8 L Medications Medications Current Medications Ondansetron HCl (Zofran Inj) 4 mg Q6H PRN IV NAUSEA AND/OR VOMITING; Start at 18:00 Acetaminophen (Tylenol Tab) 650 mg Q6H PRN PO PAIN LEVEL 1-3 OR FEVER; Start 02/13/17 at 18:00 Acetaminophen/ Hydrocodone Bitart ([place] (5/325)) 1 tab Q6H PRN PO MODERATE PAIN LEVEL 4-6; Start 02/13/17 at 18:00 Morphine Sulfate (morphine) 2 mg Q4H PRN IV SEVERE PAIN LEVEL 7-10; Start at 18:00 Docusate Sodium (Colace) 100 mg Q12H PRN PO CONSTIPATION; Start 02/13/17 at 18 :00 Magnesium Hydroxide (Milk Of Mag) 30 ml DAILY PRN PO CONSTIPATION; Start 02/13 at 18:00 Sodium Biphosphate/ Sodium Phosphate (Fleet Enema) [address] CONSTIPATION; Start 02/13/17 at 18:00 Lorazepam (Ativan) 0.5 mg Q6H PRN IV ANXIETY Last administered on 02/13/17 22 :41; Admin Dose 0.5 MG; Start 02/13/17 at 18:00 Hydralazine HCl (Apresoline) 10 mg Q6H PRN IV ELEVATED BLOOD PRESSURE; Start 02/13/17 at 18:00 Nitroglycerin 1 tab 1 tab Q5M PRN SL ANGINA; Start 02/13/17 at 18:00 Dextrose/Sodium Chloride (D5-1/2ns) 1,000 ml @ 75 mls/hr [id number] IV Last administered on 02/15/17 11:25; Admin Dose 75 MLS/HR; Start 02/14/17 at 07:30 Influenza Virus Vaccine 0.5 ml 0.5 ml ONCE ONCE IM* ; Start 02/16/17 at 08:00; Stop 02/16/17 at 08:01 Levetiracetam/ Dextrose (Keppra Iv/D5W) 102.5 ml @ 410 mls/hr Q12 IV Last administered on 02/15/17 19:59; Admin Dose 410 MLS/HR; Start 02/14/17 at 10: 00 Pantoprazole (Protonix Iv) 40 mg DAILY@06 IV Last administered on 02/15/17 06 :35; Admin Dose 40 MG; Start 02/15/17 at 06:00 Atorvastatin Calcium (Lipitor) 40 mg HS PO ; Start 02/14/17 at 09:55 Aspirin (Aspirin) [address] Last administered on 02/15/17 09:32; Admin Dose 300 MG; Start 02/14/17 at 16:00 RAYMUNDO SANTOS MD Feb 15, 2017 20:25
--- NOTE | 2017-02-15 20:25 | CONS ---
Date/Time of Note Date/Time of Note DATE: 02/15/17 TIME: 20:24 Consultation Date/Type/Reason Admit Date/Time Feb 15, 2017 at 13:43 Initial Consult Date 02/15/17 Type of Consultation: [facility] Referring Provider: INDIA DANIEL Exam/Review of Systems Vital Signs Vitals Vital Signs Date Time Temp Pulse Resp B/P Pulse Ox O2 Delivery O2 Flow Rate FiO2 02/15/17 20:15 91 02/15/17 19:38 97.6 16 141/75 96 02/15/17 00:55 Room Air Intake and Output 02/14/17 02/14/17 02/15/17 15:00 23:00 07:00 Intake Total 427.5 ml 927.5 ml Balance 427.5 ml 927.5 ml Results Result Diagram: 02/15/17 0539 02/15/17 0539 Results 24 hrs Laboratory Tests Test 02/15/17 05:39 White Blood Count 5.7 # Red Blood Count 3.85 L Hemoglobin 12.5 L Hematocrit 36.4 L Mean Corpuscular Volume 94.5 Mean Corpuscular Hemoglobin 32.5 Mean Corpuscular Hemoglobin Concent 34.3 Red Cell Distribution Width 13.7 Platelet Count 143 Mean Platelet Volume 8.9 Neutrophils % 63.0 Lymphocytes % 23.2 Monocytes % 10.2 Eosinophils % 0.2 Basophils % 0.4 Nucleated Red Blood Cells % 0.0 Neutrophils # 3.6 Lymphocytes # 1.3 Monocytes # 0.6 Eosinophils # 0.0 Basophils # 0.0 Nucleated Red Blood Cells # 0.0 Sodium Level 136 Potassium Level 3.4 L Chloride Level 104 Carbon Dioxide Level 28 Anion Gap 7 L Blood Urea Nitrogen 9 Creatinine 0.69 Glucose Level 84 # Calcium Level 7.8 L Medications Medications Current Medications Ondansetron HCl (Zofran Inj) 4 mg Q6H PRN IV NAUSEA AND/OR VOMITING; Start at 18:00 Acetaminophen (Tylenol Tab) 650 mg Q6H PRN PO PAIN LEVEL 1-3 OR FEVER; Start 02/13/17 at 18:00 Acetaminophen/ Hydrocodone Bitart ([place] (5/325)) 1 tab Q6H PRN PO MODERATE PAIN LEVEL 4-6; Start 02/13/17 at 18:00 Morphine Sulfate (morphine) 2 mg Q4H PRN IV SEVERE PAIN LEVEL 7-10; Start at 18:00 Docusate Sodium (Colace) 100 mg Q12H PRN PO CONSTIPATION; Start 02/13/17 at 18 :00 Magnesium Hydroxide (Milk Of Mag) 30 ml DAILY PRN PO CONSTIPATION; Start 02/13 at 18:00 Sodium Biphosphate/ Sodium Phosphate (Fleet Enema) 133 ml DAILY PRN [place] CONSTIPATION; Start 02/13/17 at 18:00 Lorazepam (Ativan) 0.5 mg Q6H PRN IV ANXIETY Last administered on 02/13/17 22 :41; Admin Dose 0.5 MG; Start 02/13/17 at 18:00 Hydralazine HCl (Apresoline) 10 mg Q6H PRN IV ELEVATED BLOOD PRESSURE; Start 02/13/17 at 18:00 Nitroglycerin 1 tab 1 tab Q5M PRN SL ANGINA; Start 02/13/17 at 18:00 Dextrose/Sodium Chloride (D5-1/2ns) 1,000 ml @ 75 mls/hr [id number] IV Last administered on 02/15/17 11:25; Admin Dose 75 MLS/HR; Start 02/14/17 at 07:30 Influenza Virus Vaccine 0.5 ml 0.5 ml ONCE ONCE IM* ; Start 02/16/17 at 08:00; Stop 02/16/17 at 08:01 Levetiracetam/ Dextrose (Keppra Iv/D5W) 102.5 ml @ 410 mls/hr Q12 IV Last administered on 02/15/17 19:59; Admin Dose 410 MLS/HR; Start 02/14/17 at 10: 00 Pantoprazole (Protonix Iv) 40 mg DAILY@06 IV Last administered on 02/15/17 06 :35; Admin Dose 40 MG; Start 02/15/17 at 06:00 Atorvastatin Calcium (Lipitor) 40 mg HS PO ; Start 02/14/17 at 09:55 Aspirin (Aspirin) 300 mg DAILY [place] Last administered on 02/15/17 09:32; Admin Dose 300 MG; Start 02/14/17 at 16:00 RAYMUNDO SANTOS MD Feb 15, 2017 20:25
--- NOTE | 2017-02-15 20:25 | CONS ---
Date/Time of Note Date/Time of Note DATE: 02/15/17 TIME: 20:24 Consultation Date/Type/Reason Admit Date/Time Feb 15, 2017 at 13:43 Initial Consult Date 02/15/17 Type of Consultation: [facility] Referring Provider: INDIA DANIEL Exam/Review of Systems Vital Signs Vitals Vital Signs Date Time Temp Pulse Resp B/P Pulse Ox O2 Delivery O2 Flow Rate FiO2 02/15/17 20:15 91 02/15/17 19:38 97.6 16 141/75 96 02/15/17 00:55 Room Air Intake and Output 02/14/17 02/14/17 02/15/17 15:00 23:00 07:00 Intake Total 427.5 ml 927.5 ml Balance 427.5 ml 927.5 ml Results Result Diagram: 02/15/17 0539 02/15/17 0539 Results 24 hrs Laboratory Tests Test 02/15/17 05:39 White Blood Count 5.7 # Red Blood Count 3.85 L Hemoglobin 12.5 L Hematocrit 36.4 L Mean Corpuscular Volume 94.5 Mean Corpuscular Hemoglobin 32.5 Mean Corpuscular Hemoglobin Concent 34.3 Red Cell Distribution Width 13.7 Platelet Count 143 Mean Platelet Volume 8.9 Neutrophils % 63.0 Lymphocytes % 23.2 Monocytes % 10.2 Eosinophils % 0.2 Basophils % 0.4 Nucleated Red Blood Cells % 0.0 Neutrophils # 3.6 Lymphocytes # 1.3 Monocytes # 0.6 Eosinophils # 0.0 Basophils # 0.0 Nucleated Red Blood Cells # 0.0 Sodium Level 136 Potassium Level 3.4 L Chloride Level 104 Carbon Dioxide Level 28 Anion Gap 7 L Blood Urea Nitrogen 9 Creatinine 0.69 Glucose Level 84 # Calcium Level 7.8 L Medications Medications Current Medications Ondansetron HCl (Zofran Inj) 4 mg Q6H PRN IV NAUSEA AND/OR VOMITING; Start at 18:00 Acetaminophen (Tylenol Tab) 650 mg Q6H PRN PO PAIN LEVEL 1-3 OR FEVER; Start 02/13/17 at 18:00 Acetaminophen/ Hydrocodone Bitart ([place] (5/325)) 1 tab Q6H PRN PO MODERATE PAIN LEVEL 4-6; Start 02/13/17 at 18:00 Morphine Sulfate (morphine) 2 mg Q4H PRN IV SEVERE PAIN LEVEL 7-10; Start at 18:00 Docusate Sodium (Colace) 100 mg Q12H PRN PO CONSTIPATION; Start 02/13/17 at 18 :00 Magnesium Hydroxide (Milk Of Mag) 30 ml DAILY PRN PO CONSTIPATION; Start 02/13 at 18:00 Sodium Biphosphate/ Sodium Phosphate (Fleet Enema) 133 ml DAILY PRN [place] CONSTIPATION; Start 02/13/17 at 18:00 Lorazepam (Ativan) 0.5 mg Q6H PRN IV ANXIETY Last administered on 02/13/17 22 :41; Admin Dose 0.5 MG; Start 02/13/17 at 18:00 Hydralazine HCl (Apresoline) 10 mg Q6H PRN IV ELEVATED BLOOD PRESSURE; Start 02/13/17 at 18:00 Nitroglycerin 1 tab 1 tab Q5M PRN SL ANGINA; Start 02/13/17 at 18:00 Dextrose/Sodium Chloride (D5-1/2ns) 1,000 ml @ 75 mls/hr [id number] IV Last administered on 02/15/17 11:25; Admin Dose 75 MLS/HR; Start 02/14/17 at 07:30 Influenza Virus Vaccine 0.5 ml 0.5 ml ONCE ONCE IM* ; Start 02/16/17 at 08:00; Stop 02/16/17 at 08:01 Levetiracetam/ Dextrose (Keppra Iv/D5W) 102.5 ml @ 410 mls/hr Q12 IV Last administered on 02/15/17 19:59; Admin Dose 410 MLS/HR; Start 02/14/17 at 10: 00 Pantoprazole (Protonix Iv) 40 mg DAILY@06 IV Last administered on 02/15/17 06 :35; Admin Dose 40 MG; Start 02/15/17 at 06:00 Atorvastatin Calcium (Lipitor) 40 mg HS PO ; Start 02/14/17 at 09:55 Aspirin (Aspirin) 300 mg DAILY [place] Last administered on 02/15/17 09:32; Admin Dose 300 MG; Start 02/14/17 at 16:00 RAYMUNDO SANTOS MD Feb 15, 2017 20:25
[2017-02-15] MEDS: ATORVASTATIN 40 MG TAB PO SCH (21:00)
[2017-02-16] VITALS (11 sets, daily range): BP systolic 100–139; BP diastolic 55–72; PULSE 70–86; RESP 16–20
[2017-02-16] MEDS: DEXTROSE 5%-0.45% NACL 1,000 ML IV SCH ×2 (05:26→12:46)
[2017-02-16] MEDS: PANTOPRAZOLE 40 MG INJ IV SCH (05:58)
[2017-02-16] MEDS ORDERED: INFLUENZA VIRUS VACCINE 0.5 ML (DISPENSING) IM* ONE (08:00)
[2017-02-16] MEDS: ASPIRIN 300 MG SUPP PR SCH (08:33)
[2017-02-16] MEDS: LEVETIRACETAM IV 250 MG in DEXTROSE 5% 100 ML IV SCH (08:44)
--- NOTE | 2017-02-16 13:15 | CONS ---
Date/Time of Note Date/Time of Note DATE: 02/16/17 TIME: 13:12 Consult Date/Type/Reason Admit Date/Time Feb 15, 2017 at 13:43 Initial Consult Date 02/15/17 Type of Consultation: Neurology Reason for Consultation brain mass Ordering Provider: INDIA DANIEL Subjective agitated in bed clinically stable seen by oncology Objective Vital Signs Date Time Temp Pulse Resp B/P Pulse Ox O2 Delivery O2 Flow Rate FiO2 02/16/17 11:37 98.5 77 18 104/57 95 02/15/17 00:55 Room Air Exam Constitutional: alert Psych: confusion Head: atraumatic, normocephalic Eyes: EOMI, nl conjunctiva ENMT: nl external ears & nose, nl lips & teeth, nl nasal mucosa & septum Neck: non-tender, supple Respiratory: clear to auscultation, normal air movement Cardiovascular: nl pulses, regular rate and rhythm Gastrointestinal: nl liver, spleen, non-tender, soft Neurological: [employer] II-XII intact, other (Limited exam, moving all extremities) Results/Medications Result Diagram: 02/16/1711 02/16/1711 Results 24 hrs Laboratory Tests Test 02/16/17 06:11 White Blood Count 5.7 Red Blood Count 3.72 L Hemoglobin 12.3 L Hematocrit 35.9 L Mean Corpuscular Volume 96.5 Mean Corpuscular Hemoglobin 33.1 H Mean Corpuscular Hemoglobin Concent 34.3 Red Cell Distribution Width 13.7 Platelet Count 156 Mean Platelet Volume 8.6 Neutrophils % 63.1 Lymphocytes % 25.7 Monocytes % 8.3 Eosinophils % 0.2 Basophils % 0.4 Nucleated Red Blood Cells % 0.0 Neutrophils # 3.6 Lymphocytes # 1.5 Monocytes # 0.5 Eosinophils # 0.0 Basophils # 0.0 Nucleated Red Blood Cells # 0.0 Sodium Level 134 L Potassium Level 4.0 Chloride Level 104 Carbon Dioxide Level 25 Anion Gap 9 Blood Urea Nitrogen 7 Creatinine 0.78 Glucose Level 80 Calcium Level 7.5 L Phosphorus Level 2.3 L Magnesium Level 1.9 Medications Current Medications Ondansetron HCl (Zofran Inj) 4 mg Q6H PRN IV NAUSEA AND/OR VOMITING; Start at 18:00 Acetaminophen (Tylenol Tab) 650 mg Q6H PRN PO PAIN LEVEL 1-3 OR FEVER; Start 02/13/17 at 18:00 Acetaminophen/ Hydrocodone Bitart ([place] (5/325)) 1 tab Q6H PRN PO MODERATE PAIN LEVEL 4-6; Start 02/13/17 at 18:00 Morphine Sulfate (morphine) 2 mg Q4H PRN IV SEVERE PAIN LEVEL 7-10; Start at 18:00 Docusate Sodium (Colace) 100 mg Q12H PRN PO CONSTIPATION; Start 02/13/17 at 18 :00 Magnesium Hydroxide (Milk Of Mag) 30 ml DAILY PRN PO CONSTIPATION; Start 02/13 at 18:00 Sodium Biphosphate/ Sodium Phosphate (Fleet Enema) 133 ml DAILY PRN [place] CONSTIPATION; Start 02/13/17 at 18:00 Lorazepam (Ativan) 0.5 mg Q6H PRN IV ANXIETY Last administered on 02/13/17 22 :41; Admin Dose 0.5 MG; Start 02/13/17 at 18:00 Hydralazine HCl (Apresoline) 10 mg Q6H PRN IV ELEVATED BLOOD PRESSURE; Start 02/13/17 at 18:00 Nitroglycerin 1 tab 1 tab Q5M PRN SL ANGINA; Start 02/13/17 at 18:00 Dextrose/Sodium Chloride 1,000 ml @ 75 mls/hr [id number] IV Last administered on 02/16/17 05:26; Admin Dose 75 MLS/HR; Start 02/14/17 at 07:30 Levetiracetam/ Dextrose (Keppra Iv/D5W) 102.5 ml @ 410 mls/hr Q12 IV Last administered on 02/16/17 08:44; Admin Dose 410 MLS/HR; Start 02/14/17 at 10: 00 Pantoprazole (Protonix Iv) 40 mg DAILY@06 IV Last administered on 02/16/17 05 :58; Admin Dose 40 MG; Start 02/15/17 at 06:00 Atorvastatin Calcium (Lipitor) 40 mg HS PO ; Start 02/14/17 at 09:55 Aspirin (Aspirin) 300 mg DAILY [place] Last administered on 02/15/17 09:32; Admin Dose 300 MG; Start 02/14/17 at 16:00 Assessment/Plan Chief Complaint/Hosp Course 76-year-old male with past medical history of brain tumor status post resection , carcinoma prostate, dementia was admitted following a fall. He was complaining of right knee and elbow pain. CT scan of the brain was unremarkable except for ventriculomegaly. 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 Neurology consult was called to evaluate his neurological status. Examination was limited but appeared nonfocal. 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 MRI of the brain with contrast showed severe motion degraded exam limited evaluation, old right parietal craniotomy changes, heterogenous enhancement of intracranial, right parietal-occipital lesions measuring a region of 5.5 x 5.5 x 5.5 cm most compatible with neoplasm, marked surrounding right posterior cerebral vasogenic edema with partial effacement of the posterior body, atrium and occipital horn of the right lateral ventricle with mild leftward midline shift, the lesion contacts and may invade the superior sagittal sinus. PlanL -CTA for venous evaluation pending -seizure precautions, c/w AED -follows at [facility], may benefit from transfer for continuity of care Problems: CHASE MCINTYRE MD Feb 16, 2017 13:15
--- NOTE | 2017-02-16 13:15 | CONS ---
Date/Time of Note Date/Time of Note DATE: 02/16/17 TIME: 13:12 Consult Date/Type/Reason Admit Date/Time Feb 15, 2017 at 13:43 Initial Consult Date 02/15/17 Type of Consultation: Neurology Reason for Consultation brain mass Ordering Provider: IND[place] DANIEL Subjective agitated in bed clinically stable seen by oncology Objective Vital Signs Date Time Temp Pulse Resp B/P Pulse Ox O2 Delivery O2 Flow Rate FiO2 02/16/17 11:37 98.5 77 18 104/57 95 02/15/17 00:55 Room Air Exam Constitutional: alert Psych: confusion Head: atraumatic, normocephalic Eyes: EOMI, nl conjunctiva ENMT: nl external ears & nose, nl lips & teeth, nl nasal mucosa & septum Neck: non-tender, supple Respiratory: clear to auscultation, normal air movement Cardiovascular: nl pulses, regular rate and rhythm Gastrointestinal: nl liver, spleen, non-tender, soft Neurological: HAND SUTURE WINDER II-XII intact, other (Limited exam, moving all extremities) Results/Medications Result Diagram: 02/16/1711 02/16/1711 Results 24 hrs Laboratory Tests Test 02/16/17 06:11 White Blood Count 5.7 Red Blood Count 3.72 L Hemoglobin 12.3 L Hematocrit 35.9 L Mean Corpuscular Volume 96.5 Mean Corpuscular Hemoglobin 33.1 H Mean Corpuscular Hemoglobin Concent 34.3 Red Cell Distribution Width 13.7 Platelet Count 156 Mean Platelet Volume 8.6 Neutrophils % 63.1 Lymphocytes % 25.7 Monocytes % 8.3 Eosinophils % 0.2 Basophils % 0.4 Nucleated Red Blood Cells % 0.0 Neutrophils # 3.6 Lymphocytes # 1.5 Monocytes # 0.5 Eosinophils # 0.0 Basophils # 0.0 Nucleated Red Blood Cells # 0.0 Sodium Level 134 L Potassium Level 4.0 Chloride Level 104 Carbon Dioxide Level 25 Anion Gap 9 Blood Urea Nitrogen 7 Creatinine 0.78 Glucose Level 80 Calcium Level 7.5 L Phosphorus Level 2.3 L Magnesium Level 1.9 Medications Current Medications Ondansetron HCl (Zofran Inj) 4 mg Q6H PRN IV NAUSEA AND/OR VOMITING; Start at 18:00 Acetaminophen (Tylenol Tab) 650 mg Q6H PRN PO PAIN LEVEL 1-3 OR FEVER; Start 02/13/17 at 18:00 Acetaminophen/ Hydrocodone Bitart ([place] (5/325)) 1 tab Q6H PRN PO MODERATE PAIN LEVEL 4-6; Start 02/13/17 at 18:00 Morphine Sulfate (morphine) 2 mg Q4H PRN IV SEVERE PAIN LEVEL 7-10; Start at 18:00 Docusate Sodium (Colace) 100 mg Q12H PRN PO CONSTIPATION; Start 02/13/17 at 18 :00 Magnesium Hydroxide (Milk Of Mag) 30 ml DAILY PRN PO CONSTIPATION; Start 02/13 at 18:00 Sodium Biphosphate/ Sodium Phosphate (Fleet Enema) 133 ml DAILY PRN [place] CONSTIPATION; Start 02/13/17 at 18:00 Lorazepam (Ativan) 0.5 mg Q6H PRN IV ANXIETY Last administered on 02/13/17 22 :41; Admin Dose 0.5 MG; Start 02/13/17 at 18:00 Hydralazine HCl (Apresoline) 10 mg Q6H PRN IV ELEVATED BLOOD PRESSURE; Start 02/13/17 at 18:00 Nitroglycerin 1 tab 1 tab Q5M PRN SL ANGINA; Start 02/13/17 at 18:00 Dextrose/Sodium Chloride 1,000 ml @ 75 mls/hr [id number] IV Last administered on 02/16/17 05:26; Admin Dose 75 MLS/HR; Start 02/14/17 at 07:30 Levetiracetam/ Dextrose (Keppra Iv/D5W) 102.5 ml @ 410 mls/hr Q12 IV Last administered on 02/16/17 08:44; Admin Dose 410 MLS/HR; Start 02/14/17 at 10: 00 Pantoprazole (Protonix Iv) 40 mg DAILY@06 IV Last administered on 02/16/17 05 :58; Admin Dose 40 MG; Start 02/15/17 at 06:00 Atorvastatin Calcium (Lipitor) 40 mg HS PO ; Start 02/14/17 at 09:55 Aspirin (Aspirin) 300 mg DAILY [place] Last administered on 02/15/17 09:32; Admin Dose 300 MG; Start 02/14/17 at 16:00 Assessment/Plan Chief Complaint/Hosp Course 76-year-old male with past medical history of brain tumor status post resection , carcinoma prostate, dementia was admitted following a fall. He was complaining of right knee and elbow pain. CT scan of the brain was unremarkable except for ventriculomegaly. 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 Neurology consult was called to evaluate his neurological status. Examination was limited but appeared nonfocal. 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 MRI of the brain with contrast showed severe motion degraded exam limited evaluation, old right parietal craniotomy changes, heterogenous enhancement of intracranial, right parietal-occipital lesions measuring a region of 5.5 x 5.5 x 5.5 cm most compatible with neoplasm, marked surrounding right posterior cerebral vasogenic edema with partial effacement of the posterior body, atrium and occipital horn of the right lateral ventricle with mild leftward midline shift, the lesion contacts and may invade the superior sagittal sinus. PlanL -CTA for venous evaluation pending -seizure precautions, c/w AED -follows at [facility], may benefit from transfer for continuity of care Problems: CHASE MCINTYRE MD Feb 16, 2017 13:15
--- NOTE | 2017-02-16 13:15 | CONS ---
Date/Time of Note Date/Time of Note DATE: 02/16/17 TIME: 13:12 Consult Date/Type/Reason Admit Date/Time Feb 15, 2017 at 13:43 Initial Consult Date 02/15/17 Type of Consultation: Neurology Reason for Consultation brain mass Ordering Provider: [place] DANIEL Subjective agitated in bed clinically stable seen by oncology Objective Vital Signs Date Time Temp Pulse Resp B/P Pulse Ox O2 Delivery O2 Flow Rate FiO2 02/16/17 11:37 98.5 77 18 104/57 95 02/15/17 00:55 Room Air Exam Constitutional: alert Psych: confusion Head: atraumatic, normocephalic Eyes: EOMI, nl conjunctiva ENMT: nl external ears & nose, nl lips & teeth, nl nasal mucosa & septum Neck: non-tender, supple Respiratory: clear to auscultation, normal air movement Cardiovascular: nl pulses, regular rate and rhythm Gastrointestinal: nl liver, spleen, non-tender, soft Neurological: MACHINE HEDDLE CLEANER II-XII intact, other (Limited exam, moving all extremities) Results/Medications Result Diagram: 02/16/1711 02/16/1711 Results 24 hrs Laboratory Tests Test 02/16/17 06:11 White Blood Count 5.7 Red Blood Count 3.72 L Hemoglobin 12.3 L Hematocrit 35.9 L Mean Corpuscular Volume 96.5 Mean Corpuscular Hemoglobin 33.1 H Mean Corpuscular Hemoglobin Concent 34.3 Red Cell Distribution Width 13.7 Platelet Count 156 Mean Platelet Volume 8.6 Neutrophils % 63.1 Lymphocytes % 25.7 Monocytes % 8.3 Eosinophils % 0.2 Basophils % 0.4 Nucleated Red Blood Cells % 0.0 Neutrophils # 3.6 Lymphocytes # 1.5 Monocytes # 0.5 Eosinophils # 0.0 Basophils # 0.0 Nucleated Red Blood Cells # 0.0 Sodium Level 134 L Potassium Level 4.0 Chloride Level 104 Carbon Dioxide Level 25 Anion Gap 9 Blood Urea Nitrogen 7 Creatinine 0.78 Glucose Level 80 Calcium Level 7.5 L Phosphorus Level 2.3 L Magnesium Level 1.9 Medications Current Medications Ondansetron HCl (Zofran Inj) 4 mg Q6H PRN IV NAUSEA AND/OR VOMITING; Start at 18:00 Acetaminophen (Tylenol Tab) 650 mg Q6H PRN PO PAIN LEVEL 1-3 OR FEVER; Start 02/13/17 at 18:00 Acetaminophen/ Hydrocodone Bitart ([address] (5/325)) 1 tab Q6H PRN PO MODERATE PAIN LEVEL 4-6; Start 02/13/17 at 18:00 Morphine Sulfate (morphine) 2 mg Q4H PRN IV SEVERE PAIN LEVEL 7-10; Start at 18:00 Docusate Sodium (Colace) 100 mg Q12H PRN PO CONSTIPATION; Start 02/13/17 at 18 :00 Magnesium Hydroxide (Milk Of Mag) 30 ml DAILY PRN PO CONSTIPATION; Start 02/13 at 18:00 Sodium Biphosphate/ Sodium Phosphate (Fleet Enema) 133 ml DAILY PRN [place] CONSTIPATION; Start 02/13/17 at 18:00 Lorazepam (Ativan) 0.5 mg Q6H PRN IV ANXIETY Last administered on 02/13/17 22 :41; Admin Dose 0.5 MG; Start 02/13/17 at 18:00 Hydralazine HCl (Apresoline) 10 mg Q6H PRN IV ELEVATED BLOOD PRESSURE; Start 02/13/17 at 18:00 Nitroglycerin 1 tab 1 tab Q5M PRN SL ANGINA; Start 02/13/17 at 18:00 Dextrose/Sodium Chloride 1,000 ml @ 75 mls/hr [id number] IV Last administered on 02/16/17 05:26; Admin Dose 75 MLS/HR; Start 02/14/17 at 07:30 Levetiracetam/ Dextrose (Keppra Iv/D5W) 102.5 ml @ 410 mls/hr Q12 IV Last administered on 02/16/17 08:44; Admin Dose 410 MLS/HR; Start 02/14/17 at 10: 00 Pantoprazole (Protonix Iv) 40 mg DAILY@06 IV Last administered on 02/16/17 05 :58; Admin Dose 40 MG; Start 02/15/17 at 06:00 Atorvastatin Calcium (Lipitor) 40 mg HS PO ; Start 02/14/17 at 09:55 Aspirin (Aspirin) 300 mg DAILY [place] Last administered on 02/15/17 09:32; Admin Dose 300 MG; Start 02/14/17 at 16:00 Assessment/Plan Chief Complaint/Hosp Course 76-year-old male with past medical history of brain tumor status post resection , carcinoma prostate, dementia was admitted following a fall. He was complaining of right knee and elbow pain. CT scan of the brain was unremarkable except for ventriculomegaly. 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 Neurology consult was called to evaluate his neurological status. Examination was limited but appeared nonfocal. 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 MRI of the brain with contrast showed severe motion degraded exam limited evaluation, old right parietal craniotomy changes, heterogenous enhancement of intracranial, right parietal-occipital lesions measuring a region of 5.5 x 5.5 x 5.5 cm most compatible with neoplasm, marked surrounding right posterior cerebral vasogenic edema with partial effacement of the posterior body, atrium and occipital horn of the right lateral ventricle with mild leftward midline shift, the lesion contacts and may invade the superior sagittal sinus. PlanL -CTA for venous evaluation pending -seizure precautions, c/w AED -follows at [facility], may benefit from transfer for continuity of care Problems: CHASE MCINTYRE MD Feb 16, 2017 13:15
[2017-02-16] MEDS: LORAZEPAM 2 MG INJ IV PRN (15:27)
[2017-02-16] MEDS ORDERED: SOD CHLORIDE 0.9% 100 ML ONE (15:36)
[2017-02-16] MEDS ORDERED: IOHEXOL 100 ML ONE (15:36)
[2017-02-16] MEDS ORDERED: IOHEXOL 350MG/ML 50 ML BTL ONE (15:37)
--- NOTE | 2017-02-16 16:13 | PN ---
Date/Time of Note Date/Time of Note DATE: 02/16/17 TIME: 16:08 Assessment/Plan VTE Prophylaxis VTE Prophylaxis Intervention: SCD's Lines/Catheters IV Catheter Type (from Nrsg): Peripheral IV Urinary Cath still in place: No Assessment/Plan Assessment/Plan 76 yo M with pmhx ?brain tumor? sp ?surgical management? at [facility] 11.16 admitted following a fall. Neuroimaging here with brain mass. PLAN CM still assisting in transfer to [facility] for continuity of brain tumor management. Neuro, neurosurg, and onc on cs here. further neuroimaging pending cont AED/seizure precautions pt medically stable for transfer to OSH Subjective 24 Hr Interval Summary Free Text/Dictation Pt in bed. Agitated Exam/Review of Systems Vital Signs Vitals Vital Signs Date Time Temp Pulse Resp B/P Pulse Ox O2 Delivery O2 Flow Rate FiO2 02/16/17 15:34 98.9 75 18 120/59 94 02/15/17 00:55 Room Air Exam responds to tactile stimuli no mrg lungs clear abd soft no rashes Results Result Diagram: 02/16/17 0611 02/16/17 0611 Results 24 hrs Laboratory Tests Test 02/16/17 06:11 White Blood Count 5.7 Red Blood Count 3.72 L Hemoglobin 12.3 L Hematocrit 35.9 L Mean Corpuscular Volume 96.5 Mean Corpuscular Hemoglobin 33.1 H Mean Corpuscular Hemoglobin Concent 34.3 Red Cell Distribution Width 13.7 Platelet Count 156 Mean Platelet Volume 8.6 Neutrophils % 63.1 Lymphocytes % 25.7 Monocytes % 8.3 Eosinophils % 0.2 Basophils % 0.4 Nucleated Red Blood Cells % 0.0 Neutrophils # 3.6 Lymphocytes # 1.5 Monocytes # 0.5 Eosinophils # 0.0 Basophils # 0.0 Nucleated Red Blood Cells # 0.0 Sodium Level 134 L Potassium Level 4.0 Chloride Level 104 Carbon Dioxide Level 25 Anion Gap 9 Blood Urea Nitrogen 7 Creatinine 0.78 Glucose Level 80 Calcium Level 7.5 L Phosphorus Level 2.3 L Magnesium Level 1.9 Medications Medications Current Medications Ondansetron HCl (Zofran Inj) 4 mg Q6H PRN IV NAUSEA AND/OR VOMITING; Start at 18:00 Acetaminophen (Tylenol Tab) 650 mg Q6H PRN PO PAIN LEVEL 1-3 OR FEVER; Start 02/13/17 at 18:00 Acetaminophen/ Hydrocodone Bitart ([place] (5/325)) 1 tab Q6H PRN PO MODERATE PAIN LEVEL 4-6; Start 02/13/17 at 18:00 Morphine Sulfate (morphine) 2 mg Q4H PRN IV SEVERE PAIN LEVEL 7-10; Start at 18:00 Docusate Sodium (Colace) 100 mg Q12H PRN PO CONSTIPATION; Start 02/13/17 at 18 :00 Magnesium Hydroxide (Milk Of Mag) 30 ml DAILY PRN PO CONSTIPATION; Start 02/13 at 18:00 Sodium Biphosphate/ Sodium Phosphate (Fleet Enema) 133 ml DAILY PRN [place] CONSTIPATION; Start 02/13/17 at 18:00 Lorazepam (Ativan) 0.5 mg Q6H PRN IV ANXIETY Last administered on 02/16/17 15 :27; Admin Dose 0.5 MG; Start 02/13/17 at 18:00 Hydralazine HCl (Apresoline) 10 mg Q6H PRN IV ELEVATED BLOOD PRESSURE; Start 02/13/17 at 18:00 Nitroglycerin 1 tab 1 tab Q5M PRN SL ANGINA; Start 02/13/17 at 18:00 Dextrose/Sodium Chloride 1,000 ml @ 75 mls/hr [id number] IV Last administered on 02/16/17 05:26; Admin Dose 75 MLS/HR; Start 02/14/17 at 07:30 Levetiracetam/ Dextrose (Keppra Iv/D5W) 102.5 ml @ 410 mls/hr Q12 IV Last administered on 02/16/17 08:44; Admin Dose 410 MLS/HR; Start 02/14/17 at 10: 00 Pantoprazole (Protonix Iv) 40 mg DAILY@06 IV Last administered on 02/16/17 05 :58; Admin Dose 40 MG; Start 02/15/17 at 06:00 Atorvastatin Calcium (Lipitor) 40 mg HS PO ; Start 02/14/17 at 09:55 Aspirin (Aspirin) 300 mg DAILY [place] Last administered on 02/15/17 09:32; Admin Dose 300 MG; Start 02/14/17 at 16:00 MEENA PRETTY MD Feb 16, 2017 16:13
--- NOTE | 2017-02-16 16:13 | PN ---
Date/Time of Note Date/Time of Note DATE: 02/16/17 TIME: 16:08 Assessment/Plan VTE Prophylaxis VTE Prophylaxis Intervention: SCD's Lines/Catheters IV Catheter Type (from Nrsg): Peripheral IV Urinary Cath still in place: No Assessment/Plan Assessment/Plan 76 yo M with pmhx ?brain tumor? sp ?surgical management? at [facility] 11.16 admitted following a fall. Neuroimaging here with brain mass. PLAN CM still assisting in transfer to [facility] for continuity of brain tumor management. Neuro, neurosurg, and onc on cs here. further neuroimaging pending cont AED/seizure precautions pt medically stable for transfer to OSH Subjective 24 Hr Interval Summary Free Text/Dictation Pt in bed. Agitated Exam/Review of Systems Vital Signs Vitals Vital Signs Date Time Temp Pulse Resp B/P Pulse Ox O2 Delivery O2 Flow Rate FiO2 02/16/17 15:34 98.9 75 18 120/59 94 02/15/17 00:55 Room Air Exam responds to tactile stimuli no mrg lungs clear abd soft no rashes Results Result Diagram: 02/16/17 0611 02/16/17 0611 Results 24 hrs Laboratory Tests Test 02/16/17 06:11 White Blood Count 5.7 Red Blood Count 3.72 L Hemoglobin 12.3 L Hematocrit 35.9 L Mean Corpuscular Volume 96.5 Mean Corpuscular Hemoglobin 33.1 H Mean Corpuscular Hemoglobin Concent 34.3 Red Cell Distribution Width 13.7 Platelet Count 156 Mean Platelet Volume 8.6 Neutrophils % 63.1 Lymphocytes % 25.7 Monocytes % 8.3 Eosinophils % 0.2 Basophils % 0.4 Nucleated Red Blood Cells % 0.0 Neutrophils # 3.6 Lymphocytes # 1.5 Monocytes # 0.5 Eosinophils # 0.0 Basophils # 0.0 Nucleated Red Blood Cells # 0.0 Sodium Level 134 L Potassium Level 4.0 Chloride Level 104 Carbon Dioxide Level 25 Anion Gap 9 Blood Urea Nitrogen 7 Creatinine 0.78 Glucose Level 80 Calcium Level 7.5 L Phosphorus Level 2.3 L Magnesium Level 1.9 Medications Medications Current Medications Ondansetron HCl (Zofran Inj) 4 mg Q6H PRN IV NAUSEA AND/OR VOMITING; Start at 18:00 Acetaminophen (Tylenol Tab) 650 mg Q6H PRN PO PAIN LEVEL 1-3 OR FEVER; Start 02/13/17 at 18:00 Acetaminophen/ Hydrocodone Bitart ([place] (5/325)) 1 tab Q6H PRN PO MODERATE PAIN LEVEL 4-6; Start 02/13/17 at 18:00 Morphine Sulfate (morphine) 2 mg Q4H PRN IV SEVERE PAIN LEVEL 7-10; Start at 18:00 Docusate Sodium (Colace) 100 mg Q12H PRN PO CONSTIPATION; Start 02/13/17 at 18 :00 Magnesium Hydroxide (Milk Of Mag) 30 ml DAILY PRN PO CONSTIPATION; Start 02/13 at 18:00 Sodium Biphosphate/ Sodium Phosphate (Fleet Enema) 133 ml DAILY PRN [place] CONSTIPATION; Start 02/13/17 at 18:00 Lorazepam (Ativan) 0.5 mg Q6H PRN IV ANXIETY Last administered on 02/16/17 15 :27; Admin Dose 0.5 MG; Start 02/13/17 at 18:00 Hydralazine HCl (Apresoline) 10 mg Q6H PRN IV ELEVATED BLOOD PRESSURE; Start 02/13/17 at 18:00 Nitroglycerin 1 tab 1 tab Q5M PRN SL ANGINA; Start 02/13/17 at 18:00 Dextrose/Sodium Chloride 1,000 ml @ 75 mls/hr [id number] IV Last administered on 02/16/17 05:26; Admin Dose 75 MLS/HR; Start 02/14/17 at 07:30 Levetiracetam/ Dextrose (Keppra Iv/D5W) 102.5 ml @ 410 mls/hr Q12 IV Last administered on 02/16/17 08:44; Admin Dose 410 MLS/HR; Start 02/14/17 at 10: 00 Pantoprazole (Protonix Iv) 40 mg DAILY@06 IV Last administered on 02/16/17 05 :58; Admin Dose 40 MG; Start 02/15/17 at 06:00 Atorvastatin Calcium (Lipitor) 40 mg HS PO ; Start 02/14/17 at 09:55 Aspirin (Aspirin) 300 mg DAILY [place] Last administered on 02/15/17 09:32; Admin Dose 300 MG; Start 02/14/17 at 16:00 MEENA PRETTY MD Feb 16, 2017 16:13
--- NOTE | 2017-02-16 16:13 | PN ---
Date/Time of Note Date/Time of Note DATE: 02/16/17 TIME: 16:08 Assessment/Plan VTE Prophylaxis VTE Prophylaxis Intervention: SCD's Lines/Catheters IV Catheter Type (from Nrsg): Peripheral IV Urinary Cath still in place: No Assessment/Plan Assessment/Plan 76 yo M with pmhx ?brain tumor? sp ?surgical management? at [facility] 11.16 admitted following a fall. Neuroimaging here with brain mass. PLAN CM still assisting in transfer to [facility] for continuity of brain tumor management. Neuro, neurosurg, and onc on cs here. further neuroimaging pending cont AED/seizure precautions pt medically stable for transfer to OSH Subjective 24 Hr Interval Summary Free Text/Dictation Pt in bed. Agitated Exam/Review of Systems Vital Signs Vitals Vital Signs Date Time Temp Pulse Resp B/P Pulse Ox O2 Delivery O2 Flow Rate FiO2 02/16/17 15:34 98.9 75 18 120/59 94 02/15/17 00:55 Room Air Exam responds to tactile stimuli no mrg lungs clear abd soft no rashes Results Result Diagram: 02/16/17 0611 02/16/17 0611 Results 24 hrs Laboratory Tests Test 02/16/17 06:11 White Blood Count 5.7 Red Blood Count 3.72 L Hemoglobin 12.3 L Hematocrit 35.9 L Mean Corpuscular Volume 96.5 Mean Corpuscular Hemoglobin 33.1 H Mean Corpuscular Hemoglobin Concent 34.3 Red Cell Distribution Width 13.7 Platelet Count 156 Mean Platelet Volume 8.6 Neutrophils % 63.1 Lymphocytes % 25.7 Monocytes % 8.3 Eosinophils % 0.2 Basophils % 0.4 Nucleated Red Blood Cells % 0.0 Neutrophils # 3.6 Lymphocytes # 1.5 Monocytes # 0.5 Eosinophils # 0.0 Basophils # 0.0 Nucleated Red Blood Cells # 0.0 Sodium Level 134 L Potassium Level 4.0 Chloride Level 104 Carbon Dioxide Level 25 Anion Gap 9 Blood Urea Nitrogen 7 Creatinine 0.78 Glucose Level 80 Calcium Level 7.5 L Phosphorus Level 2.3 L Magnesium Level 1.9 Medications Medications Current Medications Ondansetron HCl (Zofran Inj) 4 mg Q6H PRN IV NAUSEA AND/OR VOMITING; Start at 18:00 Acetaminophen (Tylenol Tab) 650 mg Q6H PRN PO PAIN LEVEL 1-3 OR FEVER; Start 02/13/17 at 18:00 Acetaminophen/ Hydrocodone Bitart ([place] (5/325)) 1 tab Q6H PRN PO MODERATE PAIN LEVEL 4-6; Start 02/13/17 at 18:00 Morphine Sulfate (morphine) 2 mg Q4H PRN IV SEVERE PAIN LEVEL 7-10; Start at 18:00 Docusate Sodium (Colace) 100 mg Q12H PRN PO CONSTIPATION; Start 02/13/17 at 18 :00 Magnesium Hydroxide (Milk Of Mag) 30 ml DAILY PRN PO CONSTIPATION; Start 02/13 at 18:00 Sodium Biphosphate/ Sodium Phosphate (Fleet Enema) 133 ml DAILY PRN [place] CONSTIPATION; Start 02/13/17 at 18:00 Lorazepam (Ativan) 0.5 mg Q6H PRN IV ANXIETY Last administered on 02/16/17 15 :27; Admin Dose 0.5 MG; Start 02/13/17 at 18:00 Hydralazine HCl (Apresoline) 10 mg Q6H PRN IV ELEVATED BLOOD PRESSURE; Start 02/13/17 at 18:00 Nitroglycerin 1 tab 1 tab Q5M PRN SL ANGINA; Start 02/13/17 at 18:00 Dextrose/Sodium Chloride 1,000 ml @ 75 mls/hr [id number] IV Last administered on 02/16/17 05:26; Admin Dose 75 MLS/HR; Start 02/14/17 at 07:30 Levetiracetam/ Dextrose (Keppra Iv/D5W) 102.5 ml @ 410 mls/hr Q12 IV Last administered on 02/16/17 08:44; Admin Dose 410 MLS/HR; Start 02/14/17 at 10: 00 Pantoprazole (Protonix Iv) 40 mg DAILY@06 IV Last administered on 02/16/17 05 :58; Admin Dose 40 MG; Start 02/15/17 at 06:00 Atorvastatin Calcium (Lipitor) 40 mg HS PO ; Start 02/14/17 at 09:55 Aspirin (Aspirin) 300 mg DAILY [place] Last administered on 02/15/17 09:32; Admin Dose 300 MG; Start 02/14/17 at 16:00 MEENA PRETTY MD Feb 16, 2017 16:13
[2017-02-16] MEDS: ATORVASTATIN 40 MG TAB PO SCH (21:00)
--- NOTE | 2017-02-16 22:53 | CONS ---
Date/Time of Note Date/Time of Note DATE: 02/16/17 TIME: 22:53 Consultation Date/Type/Reason Admit Date/Time Feb 15, 2017 at 13:43 Initial Consult Date 02/15/17 Type of Consultation: [facility] Referring Provider: INDIA DANIEL Exam/Review of Systems Vital Signs Vitals Vital Signs Date Time Temp Pulse Resp B/P Pulse Ox O2 Delivery O2 Flow Rate FiO2 02/16/17 22:11 99.0 02/16/17 20:42 86 20 135/72 91 02/15/17 00:55 Room Air Results Result Diagram: 02/16/17 0611 02/16/17 0611 Results 24 hrs Laboratory Tests Test 02/16/17 06:11 White Blood Count 5.7 Red Blood Count 3.72 L Hemoglobin 12.3 L Hematocrit 35.9 L Mean Corpuscular Volume 96.5 Mean Corpuscular Hemoglobin 33.1 H Mean Corpuscular Hemoglobin Concent 34.3 Red Cell Distribution Width 13.7 Platelet Count 156 Mean Platelet Volume 8.6 Neutrophils % 63.1 Lymphocytes % 25.7 Monocytes % 8.3 Eosinophils % 0.2 Basophils % 0.4 Nucleated Red Blood Cells % 0.0 Neutrophils # 3.6 Lymphocytes # 1.5 Monocytes # 0.5 Eosinophils # 0.0 Basophils # 0.0 Nucleated Red Blood Cells # 0.0 Sodium Level 134 L Potassium Level 4.0 Chloride Level 104 Carbon Dioxide Level 25 Anion Gap 9 Blood Urea Nitrogen 7 Creatinine 0.78 Glucose Level 80 Calcium Level 7.5 L Phosphorus Level 2.3 L Magnesium Level 1.9 Medications Medications Current Medications Ondansetron HCl (Zofran Inj) 4 mg Q6H PRN IV NAUSEA AND/OR VOMITING; Start at 18:00 Acetaminophen (Tylenol Tab) 650 mg Q6H PRN PO PAIN LEVEL 1-3 OR FEVER; Start 02/13/17 at 18:00 Acetaminophen/ Hydrocodone Bitart ([place] (5/325)) 1 tab Q6H PRN PO MODERATE PAIN LEVEL 4-6; Start 02/13/17 at 18:00 Morphine Sulfate (morphine) 2 mg Q4H PRN IV SEVERE PAIN LEVEL 7-10; Start at 18:00 Docusate Sodium (Colace) 100 mg Q12H PRN PO CONSTIPATION; Start 02/13/17 at 18 :00 Magnesium Hydroxide (Milk Of Mag) 30 ml DAILY PRN PO CONSTIPATION; Start 02/13 at 18:00 Sodium Biphosphate/ Sodium Phosphate (Fleet Enema) 133 ml DAILY PRN [place] CONSTIPATION; Start 02/13/17 at 18:00 Lorazepam (Ativan) 0.5 mg Q6H PRN IV ANXIETY Last administered on 02/16/17 15 :27; Admin Dose 0.5 MG; Start 02/13/17 at 18:00 Hydralazine HCl (Apresoline) 10 mg Q6H PRN IV ELEVATED BLOOD PRESSURE; Start 02/13/17 at 18:00 Nitroglycerin 1 tab 1 tab Q5M PRN SL ANGINA; Start 02/13/17 at 18:00 Levetiracetam/ Dextrose (Keppra Iv/D5W) 102.5 ml @ 410 mls/hr Q12 IV Last administered on 02/16/17 08:44; Admin Dose 410 MLS/HR; Start 02/14/17 at 10: 00 Atorvastatin Calcium (Lipitor) 40 mg HS PO ; Start 02/14/17 at 09:55 Aspirin (Aspirin) 300 mg DAILY [place] Last administered on 02/15/17 09:32; Admin Dose 300 MG; Start 02/14/17 at 16:00 RAYMUNDO SANTOS MD Feb 16, 2017 22:53
--- NOTE | 2017-02-16 22:53 | CONS ---
Date/Time of Note Date/Time of Note DATE: 02/16/17 TIME: 22:53 Consultation Date/Type/Reason Admit Date/Time Feb 15, 2017 at 13:43 Initial Consult Date 02/15/17 Type of Consultation: [facility] Referring Provider: INDIA DANIEL Exam/Review of Systems Vital Signs Vitals Vital Signs Date Time Temp Pulse Resp B/P Pulse Ox O2 Delivery O2 Flow Rate FiO2 02/16/17 22:11 99.0 02/16/17 20:42 86 20 135/72 91 02/15/17 00:55 Room Air Results Result Diagram: 02/16/17 0611 02/16/17 0611 Results 24 hrs Laboratory Tests Test 02/16/17 06:11 White Blood Count 5.7 Red Blood Count 3.72 L Hemoglobin 12.3 L Hematocrit 35.9 L Mean Corpuscular Volume 96.5 Mean Corpuscular Hemoglobin 33.1 H Mean Corpuscular Hemoglobin Concent 34.3 Red Cell Distribution Width 13.7 Platelet Count 156 Mean Platelet Volume 8.6 Neutrophils % 63.1 Lymphocytes % 25.7 Monocytes % 8.3 Eosinophils % 0.2 Basophils % 0.4 Nucleated Red Blood Cells % 0.0 Neutrophils # 3.6 Lymphocytes # 1.5 Monocytes # 0.5 Eosinophils # 0.0 Basophils # 0.0 Nucleated Red Blood Cells # 0.0 Sodium Level 134 L Potassium Level 4.0 Chloride Level 104 Carbon Dioxide Level 25 Anion Gap 9 Blood Urea Nitrogen 7 Creatinine 0.78 Glucose Level 80 Calcium Level 7.5 L Phosphorus Level 2.3 L Magnesium Level 1.9 Medications Medications Current Medications Ondansetron HCl (Zofran Inj) 4 mg Q6H PRN IV NAUSEA AND/OR VOMITING; Start at 18:00 Acetaminophen (Tylenol Tab) 650 mg Q6H PRN PO PAIN LEVEL 1-3 OR FEVER; Start 02/13/17 at 18:00 Acetaminophen/ Hydrocodone Bitart ([place] (5/325)) 1 tab Q6H PRN PO MODERATE PAIN LEVEL 4-6; Start 02/13/17 at 18:00 Morphine Sulfate (morphine) 2 mg Q4H PRN IV SEVERE PAIN LEVEL 7-10; Start at 18:00 Docusate Sodium (Colace) 100 mg Q12H PRN PO CONSTIPATION; Start 02/13/17 at 18 :00 Magnesium Hydroxide (Milk Of Mag) 30 ml DAILY PRN PO CONSTIPATION; Start 02/13 at 18:00 Sodium Biphosphate/ Sodium Phosphate (Fleet Enema) 133 ml DAILY PRN [place] CONSTIPATION; Start 02/13/17 at 18:00 Lorazepam (Ativan) 0.5 mg Q6H PRN IV ANXIETY Last administered on 02/16/17 15 :27; Admin Dose 0.5 MG; Start 02/13/17 at 18:00 Hydralazine HCl (Apresoline) 10 mg Q6H PRN IV ELEVATED BLOOD PRESSURE; Start 02/13/17 at 18:00 Nitroglycerin 1 tab 1 tab Q5M PRN SL ANGINA; Start 02/13/17 at 18:00 Levetiracetam/ Dextrose (Keppra Iv/D5W) 102.5 ml @ 410 mls/hr Q12 IV Last administered on 02/16/17 08:44; Admin Dose 410 MLS/HR; Start 02/14/17 at 10: 00 Atorvastatin Calcium (Lipitor) 40 mg HS PO ; Start 02/14/17 at 09:55 Aspirin (Aspirin) 300 mg DAILY [place] Last administered on 02/15/17 09:32; Admin Dose 300 MG; Start 02/14/17 at 16:00 RAYMUNDO SANTOS MD Feb 16, 2017 22:53
--- NOTE | 2017-02-16 22:53 | CONS ---
Date/Time of Note Date/Time of Note DATE: 02/16/17 TIME: 22:53 Consultation Date/Type/Reason Admit Date/Time Feb 15, 2017 at 13:43 Initial Consult Date 02/15/17 Type of Consultation: [facility] Referring Provider: IND[place] DANIEL Exam/Review of Systems Vital Signs Vitals Vital Signs Date Time Temp Pulse Resp B/P Pulse Ox O2 Delivery O2 Flow Rate FiO2 02/16/17 22:11 99.0 02/16/17 20:42 86 20 135/72 91 02/15/17 00:55 Room Air Results Result Diagram: 02/16/17 0611 02/16/17 0611 Results 24 hrs Laboratory Tests Test 02/16/17 06:11 White Blood Count 5.7 Red Blood Count 3.72 L Hemoglobin 12.3 L Hematocrit 35.9 L Mean Corpuscular Volume 96.5 Mean Corpuscular Hemoglobin 33.1 H Mean Corpuscular Hemoglobin Concent 34.3 Red Cell Distribution Width 13.7 Platelet Count 156 Mean Platelet Volume 8.6 Neutrophils % 63.1 Lymphocytes % 25.7 Monocytes % 8.3 Eosinophils % 0.2 Basophils % 0.4 Nucleated Red Blood Cells % 0.0 Neutrophils # 3.6 Lymphocytes # 1.5 Monocytes # 0.5 Eosinophils # 0.0 Basophils # 0.0 Nucleated Red Blood Cells # 0.0 Sodium Level 134 L Potassium Level 4.0 Chloride Level 104 Carbon Dioxide Level 25 Anion Gap 9 Blood Urea Nitrogen 7 Creatinine 0.78 Glucose Level 80 Calcium Level 7.5 L Phosphorus Level 2.3 L Magnesium Level 1.9 Medications Medications Current Medications Ondansetron HCl (Zofran Inj) 4 mg Q6H PRN IV NAUSEA AND/OR VOMITING; Start at 18:00 Acetaminophen (Tylenol Tab) 650 mg Q6H PRN PO PAIN LEVEL 1-3 OR FEVER; Start 02/13/17 at 18:00 Acetaminophen/ Hydrocodone Bitart ([place] (5/325)) 1 tab Q6H PRN PO MODERATE PAIN LEVEL 4-6; Start 02/13/17 at 18:00 Morphine Sulfate (morphine) 2 mg Q4H PRN IV SEVERE PAIN LEVEL 7-10; Start at 18:00 Docusate Sodium (Colace) 100 mg Q12H PRN PO CONSTIPATION; Start 02/13/17 at 18 :00 Magnesium Hydroxide (Milk Of Mag) 30 ml DAILY PRN PO CONSTIPATION; Start 02/13 at 18:00 Sodium Biphosphate/ Sodium Phosphate (Fleet Enema) 133 ml DAILY PRN [place] CONSTIPATION; Start 02/13/17 at 18:00 Lorazepam (Ativan) 0.5 mg Q6H PRN IV ANXIETY Last administered on 02/16/17 15 :27; Admin Dose 0.5 MG; Start 02/13/17 at 18:00 Hydralazine HCl (Apresoline) 10 mg Q6H PRN IV ELEVATED BLOOD PRESSURE; Start 02/13/17 at 18:00 Nitroglycerin 1 tab 1 tab Q5M PRN SL ANGINA; Start 02/13/17 at 18:00 Levetiracetam/ Dextrose (Keppra Iv/D5W) 102.5 ml @ 410 mls/hr Q12 IV Last administered on 02/16/17 08:44; Admin Dose 410 MLS/HR; Start 02/14/17 at 10: 00 Atorvastatin Calcium (Lipitor) 40 mg HS PO ; Start 02/14/17 at 09:55 Aspirin (Aspirin) 300 mg DAILY [place] Last administered on 02/15/17 09:32; Admin Dose 300 MG; Start 02/14/17 at 16:00 RAYMUNDO SANTOS MD Feb 16, 2017 22:53
[2017-02-17] MEDS: LEVETIRACETAM IV 250 MG in DEXTROSE 5% 100 ML IV SCH ×3 (00:09→21:57)
[2017-02-17 02:48] VITALS: BP 136/60; RESP 18
[2017-02-17] MEDS: LORAZEPAM 2 MG INJ IV PRN ×2 (03:10→17:13)
--- NOTE | 2017-02-17 07:13 | RADRPT ---
PROCEDURE: CT ANGIOGRAM BRAIN WITH AND WITHOUT CONTRAST. CLINICAL INDICATION: Right parietal occipital mass and evaluate patency of superior sagittal sinus TECHNIQUE: On a [employer] multi detector scanner, 2.5 mm slice thickness transaxial images we re acquired from the high vertex to the foramen magnum. Following the uneventful administration of 95 cc Optiray 350, postcontrast 1.25 mm transaxial images were acquired through the vertex to the fo ramen magnum. Post processing was performed with maximal intensity projection and 3-D reconstruction on the [employer] workstation. All images were reviewed on a PACS workstation. DLP 493.33 mGy-cm . CTDI 34.65 One of the following 3 dose reduction techniques were used during this CT examination: 1) Automated exposure control 2) Adjustment of the mA +/- kV according to patient size or 3) Use of iterative reconstruction technique COMPARISON: MR brain 02/14/[address] brain 02/12 2017 FINDINGS: The venous phase imaging demonstrates normal opacification of the superior sagittal sinus, the torcu la, the straight sinus, the bilateral transverse sinuses the bilateral sigmoid sinuses and the bilat eral jugular veins. The visualized calvarium is remarkable for right parietal occipital craniotomy with postsurgical lenora nges. Again noted is the heterogeneously enhancing right parietal occipital mass which measures on c urrent study approximately 3.2 cm AP by 2.5 cm transverse by 4.2 cm in superior inferior dimensions. This abuts the right inferior portion of the falx cerebri and appears to extend on either side of t he falx in the parietal occipital region. This mass is compatible with a primary neoplasm and correl ate with pathology. Diffuse right cerebral posterior temporal, right parietal and occipital sulcal effacement is present compatible with extensive associated vikram neoplastic edema. Mild right to left 5 mm midline shift i s present. The ventricles demonstrate mild ventricular enlargement. The bifrontal diameter is unchan ged and measures approximately 3.6 cm. The petrous, cavernous and supraclinoid internal carotid artery segments are normal in appearance wi thout focal narrowing or aneurysm. The anterior, middle, and posterior cerebral arteries of normal c ourse and caliber without focal stenosis, aneurysm or arteriovenous malformation. The distal vertebral arteries are of normal course and caliber with a dominant right vertebral arter y.. The posterior communicating arteries are present bilaterally. The posterior inferior cerebellar arteries reveal no evidence of aneurysm. IMPRESSION: 1. Patent superior sagittal sinus, torcula, bilateral transverse, sigmoid and internal jugular vein s. 2. Normal [place] 3. 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 Recommend correlation with pathology. 4. Extensive right posterior temporal, parietal and occipital perilesional edema. 5. Status post right parietal occipital craniotomy changes. RPTAT: HDC .Nida Hough MD, MD Date Time Electronically viewed and signed by .Nida Hough MD, MD on 02/17/2017 07:13 .C/
--- NOTE | 2017-02-17 07:13 | RADRPT ---
PROCEDURE: CT ANGIOGRAM BRAIN WITH AND WITHOUT CONTRAST. CLINICAL INDICATION: Right parietal occipital mass and evaluate patency of superior sagittal sinus TECHNIQUE: On a [employer] multi detector scanner, 2.5 mm slice thickness transaxial images we re acquired from the high vertex to the foramen magnum. Following the uneventful administration of 95 cc Optiray 350, postcontrast 1.25 mm transaxial images were acquired through the vertex to the fo ramen magnum. Post processing was performed with maximal intensity projection and 3-D reconstruction on the [employer] workstation. All images were reviewed on a PACS workstation. DLP 493.33 mGy-cm . CTDI 34.65 One of the following 3 dose reduction techniques were used during this CT examination: 1) Automated exposure control 2) Adjustment of the mA +/- kV according to patient size or 3) Use of iterative reconstruction technique COMPARISON: MR brain 02/14/[address] brain 02/12 2017 FINDINGS: The venous phase imaging demonstrates normal opacification of the superior sagittal sinus, the torcu la, the straight sinus, the bilateral transverse sinuses the bilateral sigmoid sinuses and the bilat eral jugular veins. The visualized calvarium is remarkable for right parietal occipital craniotomy with postsurgical lenora nges. Again noted is the heterogeneously enhancing right parietal occipital mass which measures on c urrent study approximately 3.2 cm AP by 2.5 cm transverse by 4.2 cm in superior inferior dimensions. This abuts the right inferior portion of the falx cerebri and appears to extend on either side of t he falx in the parietal occipital region. This mass is compatible with a primary neoplasm and correl ate with pathology. Diffuse right cerebral posterior temporal, right parietal and occipital sulcal effacement is present compatible with extensive associated vikram neoplastic edema. Mild right to left 5 mm midline shift i s present. The ventricles demonstrate mild ventricular enlargement. The bifrontal diameter is unchan ged and measures approximately 3.6 cm. The petrous, cavernous and supraclinoid internal carotid artery segments are normal in appearance wi thout focal narrowing or aneurysm. The anterior, middle, and posterior cerebral arteries of normal c ourse and caliber without focal stenosis, aneurysm or arteriovenous malformation. The distal vertebral arteries are of normal course and caliber with a dominant right vertebral arter y.. The posterior communicating arteries are present bilaterally. The posterior inferior cerebellar arteries reveal no evidence of aneurysm. IMPRESSION: 1. Patent superior sagittal sinus, torcula, bilateral transverse, sigmoid and internal jugular vein s. 2. Normal [place] 3. 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 Recommend correlation with pathology. 4. Extensive right posterior temporal, parietal and occipital perilesional edema. 5. Status post right parietal occipital craniotomy changes. RPTAT: HDC .Nida Hough MD, MD Date Time Electronically viewed and signed by .Nida Hough MD, MD on 02/17/2017 07:13 .C/
[2017-02-17 08:00] VITALS: BP 138/64; RESP 18
--- NOTE | 2017-02-17 09:06 | RADRPT ---
PROCEDURE: XR Chest. CLINICAL INDICATION: Shortness of breath. TECHNIQUE: Single frontal view. COMPARISON: 02/12/2017. FINDINGS: The lungs are clear. The heart is mildly enlarged. There is calcification in the aorta consistent with atherosclerosis. There is no pleural effusion. There is no pneumothorax. IMPRESSION: 1. Mild cardiomegaly and atherosclerosis. 2. Otherwise unremarkable chest radiograph. RPTAT: QQ .Fermín Escalona MD, MD Date Time Electronically viewed and signed by .Fermín Escalona MD, on 02/17/2017 09:06 .R/
[2017-02-17] MEDS: ASPIRIN 300 MG SUPP PR SCH (10:18)
[2017-02-17 14:00] VITALS: BP 136/76; RESP 18
--- NOTE | 2017-02-17 15:29 | PN ---
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 at [facility] 11.16 admitted following a fall. Neuroimaging here with brain mass. PLAN CM still assisting in transfer to [facility] for continuity of brain tumor management. Neuro, neurosurg, and onc on cs here. cont AED/seizure precautions CM spoke to pt's family today, apparently pt previously referred to hospice? I have asked CM to set up family meeting for tomorrow and hospice eval pt medically stable for transfer to OSH Exam/Review of Systems Vital Signs Vitals Vital Signs Date Time Temp Pulse Resp B/P Pulse Ox O2 Delivery O2 Flow Rate FiO2 02/17/17 08:00 98.6 76 18 138/64 96 02/15/17 00:55 Room Air Intake and Output 02/16/17 02/16/17 02/17/17 15:00 23:00 07:00 Intake Total 0 ml 102.5 ml Balance 0 ml 102.5 ml Results Result Diagram: 02/17/17 0453 02/17/17 0453 Results 24 hrs Laboratory Tests Test 02/17/17 04:53 White Blood Count 6.8 Red Blood Count 4.02 L Hemoglobin 13.0 L Hematocrit 38.0 L Mean Corpuscular Volume 94.5 Mean Corpuscular Hemoglobin 32.3 Mean Corpuscular Hemoglobin Concent 34.2 Red Cell Distribution Width 13.7 Platelet Count 167 Mean Platelet Volume 8.8 Neutrophils % 61.1 Lymphocytes % 27.0 Monocytes % 9.5 Eosinophils % 0.1 Basophils % 0.4 Nucleated Red Blood Cells % 0.0 Neutrophils # 4.2 Lymphocytes # 1.8 Monocytes # 0.7 Eosinophils # 0.0 Basophils # 0.0 Nucleated Red Blood Cells # 0.0 Sodium Level 139 Potassium Level 5.2 H Chloride Level 107 Carbon Dioxide Level 29 Anion Gap 8 Blood Urea Nitrogen 10 Creatinine 0.81 Glucose Level 76 Calcium Level 8.3 L Medications Medications Current Medications Ondansetron HCl (Zofran Inj) 4 mg Q6H PRN IV NAUSEA AND/OR VOMITING; Start at 18:00 Acetaminophen (Tylenol Tab) 650 mg Q6H PRN PO PAIN LEVEL 1-3 OR FEVER; Start 02/13/17 at 18:00 Acetaminophen/ Hydrocodone Bitart ([place] (5/325)) 1 tab Q6H PRN PO MODERATE PAIN LEVEL 4-6; Start 02/13/17 at 18:00 Morphine Sulfate (morphine) 2 mg Q4H PRN IV SEVERE PAIN LEVEL 7-10; Start at 18:00 Docusate Sodium (Colace) 100 mg Q12H PRN PO CONSTIPATION; Start 02/13/17 at 18 :00 Magnesium Hydroxide (Milk Of Mag) 30 ml DAILY PRN PO CONSTIPATION; Start 02/13 at 18:00 Sodium Biphosphate/ Sodium Phosphate (Fleet Enema) 133 ml DAILY PRN [place] CONSTIPATION; Start 02/13/17 at 18:00 Lorazepam (Ativan) 0.5 mg Q6H PRN IV ANXIETY Last administered on 02/17/17 03 :10; Admin Dose 0.5 MG; Start 02/13/17 at 18:00 Hydralazine HCl (Apresoline) 10 mg Q6H PRN IV ELEVATED BLOOD PRESSURE; Start 02/13/17 at 18:00 Nitroglycerin 1 tab 1 tab Q5M PRN SL ANGINA; Start 02/13/17 at 18:00 Levetiracetam/ Dextrose (Keppra Iv/D5W) 102.5 ml @ 410 mls/hr Q12 IV Last administered on 02/17/17 10:19; Admin Dose 410 MLS/HR; Start 02/14/17 at 10: 00 Atorvastatin Calcium (Lipitor) 40 mg HS PO ; Start 02/14/17 at 09:55 Aspirin (Aspirin) 300 mg DAILY [place] Last administered on 02/17/17 10:18; Admin Dose 300 MG; Start 02/14/17 at 16:00 Acetaminophen (Tylenol Supp) 650 mg Q6H PRN [place] FEVER; Start 02/17/17 at 00:00 MEENA PRETTY MD Feb 17, 2017 15:29
--- NOTE | 2017-02-17 15:29 | PN ---
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 at [facility] 11.16 admitted following a fall. Neuroimaging here with brain mass. PLAN CM still assisting in transfer to [facility] for continuity of brain tumor management. Neuro, neurosurg, and onc on cs here. cont AED/seizure precautions CM spoke to pt's family today, apparently pt previously referred to hospice? I have asked CM to set up family meeting for tomorrow and hospice eval pt medically stable for transfer to OSH Exam/Review of Systems Vital Signs Vitals Vital Signs Date Time Temp Pulse Resp B/P Pulse Ox O2 Delivery O2 Flow Rate FiO2 02/17/17 08:00 98.6 76 18 138/64 96 02/15/17 00:55 Room Air Intake and Output 02/16/17 02/16/17 02/17/17 15:00 23:00 07:00 Intake Total 0 ml 102.5 ml Balance 0 ml 102.5 ml Results Result Diagram: 02/17/17 0453 02/17/17 0453 Results 24 hrs Laboratory Tests Test 02/17/17 04:53 White Blood Count 6.8 Red Blood Count 4.02 L Hemoglobin 13.0 L Hematocrit 38.0 L Mean Corpuscular Volume 94.5 Mean Corpuscular Hemoglobin 32.3 Mean Corpuscular Hemoglobin Concent 34.2 Red Cell Distribution Width 13.7 Platelet Count 167 Mean Platelet Volume 8.8 Neutrophils % 61.1 Lymphocytes % 27.0 Monocytes % 9.5 Eosinophils % 0.1 Basophils % 0.4 Nucleated Red Blood Cells % 0.0 Neutrophils # 4.2 Lymphocytes # 1.8 Monocytes # 0.7 Eosinophils # 0.0 Basophils # 0.0 Nucleated Red Blood Cells # 0.0 Sodium Level 139 Potassium Level 5.2 H Chloride Level 107 Carbon Dioxide Level 29 Anion Gap 8 Blood Urea Nitrogen 10 Creatinine 0.81 Glucose Level 76 Calcium Level 8.3 L Medications Medications Current Medications Ondansetron HCl (Zofran Inj) 4 mg Q6H PRN IV NAUSEA AND/OR VOMITING; Start at 18:00 Acetaminophen (Tylenol Tab) 650 mg Q6H PRN PO PAIN LEVEL 1-3 OR FEVER; Start 02/13/17 at 18:00 Acetaminophen/ Hydrocodone Bitart ([place] (5/325)) 1 tab Q6H PRN PO MODERATE PAIN LEVEL 4-6; Start 02/13/17 at 18:00 Morphine Sulfate (morphine) 2 mg Q4H PRN IV SEVERE PAIN LEVEL 7-10; Start at 18:00 Docusate Sodium (Colace) 100 mg Q12H PRN PO CONSTIPATION; Start 02/13/17 at 18 :00 Magnesium Hydroxide (Milk Of Mag) 30 ml DAILY PRN PO CONSTIPATION; Start 02/13 at 18:00 Sodium Biphosphate/ Sodium Phosphate (Fleet Enema) 133 ml DAILY PRN [place] CONSTIPATION; Start 02/13/17 at 18:00 Lorazepam (Ativan) 0.5 mg Q6H PRN IV ANXIETY Last administered on 02/17/17 03 :10; Admin Dose 0.5 MG; Start 02/13/17 at 18:00 Hydralazine HCl (Apresoline) 10 mg Q6H PRN IV ELEVATED BLOOD PRESSURE; Start 02/13/17 at 18:00 Nitroglycerin 1 tab 1 tab Q5M PRN SL ANGINA; Start 02/13/17 at 18:00 Levetiracetam/ Dextrose (Keppra Iv/D5W) 102.5 ml @ 410 mls/hr Q12 IV Last administered on 02/17/17 10:19; Admin Dose 410 MLS/HR; Start 02/14/17 at 10: 00 Atorvastatin Calcium (Lipitor) 40 mg HS PO ; Start 02/14/17 at 09:55 Aspirin (Aspirin) 300 mg DAILY [place] Last administered on 02/17/17 10:18; Admin Dose 300 MG; Start 02/14/17 at 16:00 Acetaminophen (Tylenol Supp) 650 mg Q6H PRN [place] FEVER; Start 02/17/17 at 00:00 MEENA PRETTY MD Feb 17, 2017 15:29
--- NOTE | 2017-02-17 15:29 | PN ---
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 at [facility] 11.16 admitted following a fall. Neuroimaging here with brain mass. PLAN CM still assisting in transfer to [facility] for continuity of brain tumor management. Neuro, neurosurg, and onc on cs here. cont AED/seizure precautions CM spoke to pt's family today, apparently pt previously referred to hospice? I have asked CM to set up family meeting for tomorrow and hospice eval pt medically stable for transfer to OSH Exam/Review of Systems Vital Signs Vitals Vital Signs Date Time Temp Pulse Resp B/P Pulse Ox O2 Delivery O2 Flow Rate FiO2 02/17/17 08:00 98.6 76 18 138/64 96 02/15/17 00:55 Room Air Intake and Output 02/16/17 02/16/17 02/17/17 15:00 23:00 07:00 Intake Total 0 ml 102.5 ml Balance 0 ml 102.5 ml Results Result Diagram: 02/17/17 0453 02/17/17 0453 Results 24 hrs Laboratory Tests Test 02/17/17 04:53 White Blood Count 6.8 Red Blood Count 4.02 L Hemoglobin 13.0 L Hematocrit 38.0 L Mean Corpuscular Volume 94.5 Mean Corpuscular Hemoglobin 32.3 Mean Corpuscular Hemoglobin Concent 34.2 Red Cell Distribution Width 13.7 Platelet Count 167 Mean Platelet Volume 8.8 Neutrophils % 61.1 Lymphocytes % 27.0 Monocytes % 9.5 Eosinophils % 0.1 Basophils % 0.4 Nucleated Red Blood Cells % 0.0 Neutrophils # 4.2 Lymphocytes # 1.8 Monocytes # 0.7 Eosinophils # 0.0 Basophils # 0.0 Nucleated Red Blood Cells # 0.0 Sodium Level 139 Potassium Level 5.2 H Chloride Level 107 Carbon Dioxide Level 29 Anion Gap 8 Blood Urea Nitrogen 10 Creatinine 0.81 Glucose Level 76 Calcium Level 8.3 L Medications Medications Current Medications Ondansetron HCl (Zofran Inj) 4 mg Q6H PRN IV NAUSEA AND/OR VOMITING; Start at 18:00 Acetaminophen (Tylenol Tab) 650 mg Q6H PRN PO PAIN LEVEL 1-3 OR FEVER; Start 02/13/17 at 18:00 Acetaminophen/ Hydrocodone Bitart ([place] (5/325)) 1 tab Q6H PRN PO MODERATE PAIN LEVEL 4-6; Start 02/13/17 at 18:00 Morphine Sulfate (morphine) 2 mg Q4H PRN IV SEVERE PAIN LEVEL 7-10; Start at 18:00 Docusate Sodium (Colace) 100 mg Q12H PRN PO CONSTIPATION; Start 02/13/17 at 18 :00 Magnesium Hydroxide (Milk Of Mag) 30 ml DAILY PRN PO CONSTIPATION; Start 02/13 at 18:00 Sodium Biphosphate/ Sodium Phosphate (Fleet Enema) 133 ml DAILY PRN [place] CONSTIPATION; Start 02/13/17 at 18:00 Lorazepam (Ativan) 0.5 mg Q6H PRN IV ANXIETY Last administered on 02/17/17 03 :10; Admin Dose 0.5 MG; Start 02/13/17 at 18:00 Hydralazine HCl (Apresoline) 10 mg Q6H PRN IV ELEVATED BLOOD PRESSURE; Start 02/13/17 at 18:00 Nitroglycerin 1 tab 1 tab Q5M PRN SL ANGINA; Start 02/13/17 at 18:00 Levetiracetam/ Dextrose (Keppra Iv/D5W) 102.5 ml @ 410 mls/hr Q12 IV Last administered on 02/17/17 10:19; Admin Dose 410 MLS/HR; Start 02/14/17 at 10: 00 Atorvastatin Calcium (Lipitor) 40 mg HS PO ; Start 02/14/17 at 09:55 Aspirin (Aspirin) 300 mg DAILY [place] Last administered on 02/17/17 10:18; Admin Dose 300 MG; Start 02/14/17 at 16:00 Acetaminophen (Tylenol Supp) 650 mg Q6H PRN [place] FEVER; Start 02/17/17 at 00:00 MEENA PRETTY MD Feb 17, 2017 15:29
--- NOTE | 2017-02-17 17:42 | CONS ---
Date/Time of Note Date/Time of Note DATE: 02/17/17 TIME: 17:42 Consultation Date/Type/Reason Admit Date/Time Feb 15, 2017 at 13:43 Initial Consult Date 02/15/17 Type of Consultation: [facility] Referring Provider: INDIA DANIEL Exam/Review of Systems Vital Signs Vitals Vital Signs Date Time Temp Pulse Resp B/P Pulse Ox O2 Delivery O2 Flow Rate FiO2 02/17/17 14:00 98.8 18 136/76 96 02/17/17 08:00 76 02/15/17 00:55 Room Air Intake and Output 02/16/17 02/16/17 02/17/17 15:00 23:00 07:00 Intake Total 0 ml 102.5 ml Balance 0 ml 102.5 ml Results Result Diagram: 02/17/17 0453 02/17/17 0453 Results 24 hrs Laboratory Tests Test 02/17/17 04:53 White Blood Count 6.8 Red Blood Count 4.02 L Hemoglobin 13.0 L Hematocrit 38.0 L Mean Corpuscular Volume 94.5 Mean Corpuscular Hemoglobin 32.3 Mean Corpuscular Hemoglobin Concent 34.2 Red Cell Distribution Width 13.7 Platelet Count 167 Mean Platelet Volume 8.8 Neutrophils % 61.1 Lymphocytes % 27.0 Monocytes % 9.5 Eosinophils % 0.1 Basophils % 0.4 Nucleated Red Blood Cells % 0.0 Neutrophils # 4.2 Lymphocytes # 1.8 Monocytes # 0.7 Eosinophils # 0.0 Basophils # 0.0 Nucleated Red Blood Cells # 0.0 Sodium Level 139 Potassium Level 5.2 H Chloride Level 107 Carbon Dioxide Level 29 Anion Gap 8 Blood Urea Nitrogen 10 Creatinine 0.81 Glucose Level 76 Calcium Level 8.3 L Medications Medications Current Medications Ondansetron HCl (Zofran Inj) 4 mg Q6H PRN IV NAUSEA AND/OR VOMITING; Start at 18:00 Acetaminophen (Tylenol Tab) 650 mg Q6H PRN PO PAIN LEVEL 1-3 OR FEVER; Start 02/13/17 at 18:00 Acetaminophen/ Hydrocodone Bitart ([place] (5/325)) 1 tab Q6H PRN PO MODERATE PAIN LEVEL 4-6; Start 02/13/17 at 18:00 Morphine Sulfate (morphine) 2 mg Q4H PRN IV SEVERE PAIN LEVEL 7-10; Start at 18:00 Docusate Sodium (Colace) 100 mg Q12H PRN PO CONSTIPATION; Start 02/13/17 at 18 :00 Magnesium Hydroxide (Milk Of Mag) 30 ml DAILY PRN [place] CONSTIPATION; Start 02/13 at 18:00 Sodium Biphosphate/ Sodium Phosphate (Fleet Enema) 133 ml DAILY PRN [place] CONSTIPATION; Start 02/13/17 at 18:00 Lorazepam (Ativan) 0.5 mg Q6H PRN IV ANXIETY Last administered on 02/17/17 17 :13; Admin Dose 0.5 MG; Start 02/13/17 at 18:00 Hydralazine HCl (Apresoline) 10 mg Q6H PRN IV ELEVATED BLOOD PRESSURE; Start 02/13/17 at 18:00 Nitroglycerin 1 tab 1 tab Q5M PRN SL ANGINA; Start 02/13/17 at 18:00 Levetiracetam/ Dextrose (Keppra Iv/D5W) 102.5 ml @ 410 mls/hr Q12 IV Last administered on 02/17/17 10:19; Admin Dose 410 MLS/HR; Start 02/14/17 at 10: 00 Atorvastatin Calcium (Lipitor) 40 mg HS PO ; Start 02/14/17 at 09:55 Aspirin (Aspirin) 300 mg DAILY [place] Last administered on 02/17/17 10:18; Admin Dose 300 MG; Start 02/14/17 at 16:00 Acetaminophen (Tylenol Supp) 650 mg Q6H PRN [place] FEVER; Start 02/17/17 at 00:00 RAYMUNDO SANTOS MD Feb 17, 2017 17:42
--- NOTE | 2017-02-17 17:42 | CONS ---
Date/Time of Note Date/Time of Note DATE: 02/17/17 TIME: 17:42 Consultation Date/Type/Reason Admit Date/Time Feb 15, 2017 at 13:43 Initial Consult Date 02/15/17 Type of Consultation: [facility] Referring Provider: INDIA DANIEL Exam/Review of Systems Vital Signs Vitals Vital Signs Date Time Temp Pulse Resp B/P Pulse Ox O2 Delivery O2 Flow Rate FiO2 02/17/17 14:00 98.8 18 136/76 96 02/17/17 08:00 76 02/15/17 00:55 Room Air Intake and Output 02/16/17 02/16/17 02/17/17 15:00 23:00 07:00 Intake Total 0 ml 102.5 ml Balance 0 ml 102.5 ml Results Result Diagram: 02/17/17 0453 02/17/17 0453 Results 24 hrs Laboratory Tests Test 02/17/17 04:53 White Blood Count 6.8 Red Blood Count 4.02 L Hemoglobin 13.0 L Hematocrit 38.0 L Mean Corpuscular Volume 94.5 Mean Corpuscular Hemoglobin 32.3 Mean Corpuscular Hemoglobin Concent 34.2 Red Cell Distribution Width 13.7 Platelet Count 167 Mean Platelet Volume 8.8 Neutrophils % 61.1 Lymphocytes % 27.0 Monocytes % 9.5 Eosinophils % 0.1 Basophils % 0.4 Nucleated Red Blood Cells % 0.0 Neutrophils # 4.2 Lymphocytes # 1.8 Monocytes # 0.7 Eosinophils # 0.0 Basophils # 0.0 Nucleated Red Blood Cells # 0.0 Sodium Level 139 Potassium Level 5.2 H Chloride Level 107 Carbon Dioxide Level 29 Anion Gap 8 Blood Urea Nitrogen 10 Creatinine 0.81 Glucose Level 76 Calcium Level 8.3 L Medications Medications Current Medications Ondansetron HCl (Zofran Inj) 4 mg Q6H PRN IV NAUSEA AND/OR VOMITING; Start at 18:00 Acetaminophen (Tylenol Tab) 650 mg Q6H PRN PO PAIN LEVEL 1-3 OR FEVER; Start 02/13/17 at 18:00 Acetaminophen/ Hydrocodone Bitart ([place] (5/325)) 1 tab Q6H PRN PO MODERATE PAIN LEVEL 4-6; Start 02/13/17 at 18:00 Morphine Sulfate (morphine) 2 mg Q4H PRN IV SEVERE PAIN LEVEL 7-10; Start at 18:00 Docusate Sodium (Colace) 100 mg Q12H PRN PO CONSTIPATION; Start 02/13/17 at 18 :00 Magnesium Hydroxide (Milk Of Mag) 30 ml DAILY PRN PO CONSTIPATION; Start 02/13 at 18:00 Sodium Biphosphate/ Sodium Phosphate (Fleet Enema) 133 ml DAILY PRN [place] CONSTIPATION; Start 02/13/17 at 18:00 Lorazepam (Ativan) 0.5 mg Q6H PRN IV ANXIETY Last administered on 02/17/17 17 :13; Admin Dose 0.5 MG; Start 02/13/17 at 18:00 Hydralazine HCl (Apresoline) 10 mg Q6H PRN IV ELEVATED BLOOD PRESSURE; Start 02/13/17 at 18:00 Nitroglycerin 1 tab 1 tab Q5M PRN SL ANGINA; Start 02/13/17 at 18:00 Levetiracetam/ Dextrose (Keppra Iv/D5W) 102.5 ml @ 410 mls/hr Q12 IV Last administered on 02/17/17 10:19; Admin Dose 410 MLS/HR; Start 02/14/17 at 10: 00 Atorvastatin Calcium (Lipitor) 40 mg HS PO ; Start 02/14/17 at 09:55 Aspirin (Aspirin) 300 mg DAILY [place] Last administered on 02/17/17 10:18; Admin Dose 300 MG; Start 02/14/17 at 16:00 Acetaminophen (Tylenol Supp) 650 mg Q6H PRN [place] FEVER; Start 02/17/17 at 00:00 RAYMUNDO SANTOS MD Feb 17, 2017 17:42
--- NOTE | 2017-02-17 17:42 | CONS ---
Date/Time of Note Date/Time of Note DATE: 02/17/17 TIME: 17:42 Consultation Date/Type/Reason Admit Date/Time Feb 15, 2017 at 13:43 Initial Consult Date 02/15/17 Type of Consultation: [facility] Referring Provider: INDIA DANIEL Exam/Review of Systems Vital Signs Vitals Vital Signs Date Time Temp Pulse Resp B/P Pulse Ox O2 Delivery O2 Flow Rate FiO2 02/17/17 14:00 98.8 18 136/76 96 02/17/17 08:00 76 02/15/17 00:55 Room Air Intake and Output 02/16/17 02/16/17 02/17/17 15:00 23:00 07:00 Intake Total 0 ml 102.5 ml Balance 0 ml 102.5 ml Results Result Diagram: 02/17/17 0453 02/17/17 0453 Results 24 hrs Laboratory Tests Test 02/17/17 04:53 White Blood Count 6.8 Red Blood Count 4.02 L Hemoglobin 13.0 L Hematocrit 38.0 L Mean Corpuscular Volume 94.5 Mean Corpuscular Hemoglobin 32.3 Mean Corpuscular Hemoglobin Concent 34.2 Red Cell Distribution Width 13.7 Platelet Count 167 Mean Platelet Volume 8.8 Neutrophils % 61.1 Lymphocytes % 27.0 Monocytes % 9.5 Eosinophils % 0.1 Basophils % 0.4 Nucleated Red Blood Cells % 0.0 Neutrophils # 4.2 Lymphocytes # 1.8 Monocytes # 0.7 Eosinophils # 0.0 Basophils # 0.0 Nucleated Red Blood Cells # 0.0 Sodium Level 139 Potassium Level 5.2 H Chloride Level 107 Carbon Dioxide Level 29 Anion Gap 8 Blood Urea Nitrogen 10 Creatinine 0.81 Glucose Level 76 Calcium Level 8.3 L Medications Medications Current Medications Ondansetron HCl (Zofran Inj) 4 mg Q6H PRN IV NAUSEA AND/OR VOMITING; Start at 18:00 Acetaminophen (Tylenol Tab) 650 mg Q6H PRN PO PAIN LEVEL 1-3 OR FEVER; Start 02/13/17 at 18:00 Acetaminophen/ Hydrocodone Bitart ([place] (5/325)) 1 tab Q6H PRN PO MODERATE PAIN LEVEL 4-6; Start 02/13/17 at 18:00 Morphine Sulfate (morphine) 2 mg Q4H PRN IV SEVERE PAIN LEVEL 7-10; Start at 18:00 Docusate Sodium (Colace) 100 mg Q12H PRN PO CONSTIPATION; Start 02/13/17 at 18 :00 Magnesium Hydroxide (Milk Of Mag) 30 ml DAILY PRN PO CONSTIPATION; Start 02/13 at 18:00 Sodium Biphosphate/ Sodium Phosphate (Fleet Enema) 133 ml DAILY PRN [place] CONSTIPATION; Start 02/13/17 at 18:00 Lorazepam (Ativan) 0.5 mg Q6H PRN IV ANXIETY Last administered on 02/17/17 17 :13; Admin Dose 0.5 MG; Start 02/13/17 at 18:00 Hydralazine HCl (Apresoline) 10 mg Q6H PRN IV ELEVATED BLOOD PRESSURE; Start 02/13/17 at 18:00 Nitroglycerin 1 tab 1 tab Q5M PRN SL ANGINA; Start 02/13/17 at 18:00 Levetiracetam/ Dextrose (Keppra Iv/D5W) 102.5 ml @ 410 mls/hr Q12 IV Last administered on 02/17/17 10:19; Admin Dose 410 MLS/HR; Start 02/14/17 at 10: 00 Atorvastatin Calcium (Lipitor) 40 mg HS PO ; Start 02/14/17 at 09:55 Aspirin (Aspirin) 300 mg DAILY [place] Last administered on 02/17/17 10:18; Admin Dose 300 MG; Start 02/14/17 at 16:00 Acetaminophen (Tylenol Supp) 650 mg Q6H PRN [place] FEVER; Start 02/17/17 at 00:00 RAYMUNDO SANTOS MD Feb 17, 2017 17:42
[2017-02-17 20:02] VITALS: BP 126/73; RESP 18
[2017-02-17] MEDS: ATORVASTATIN 40 MG TAB PO SCH (21:00)
[2017-02-18 02:11] VITALS: BP 136/64; RESP 17
[2017-02-18] MEDS: LORAZEPAM 2 MG INJ IV PRN ×2 (02:59→23:31)
[2017-02-18] MEDS ORDERED: DEXTROSE 50% 50 ML SYRINGE IV STA (07:41)
[2017-02-18] MEDS ORDERED: DEXTROSE 50% 50 ML SYRINGE ONE (07:44)
[2017-02-18 08:00] VITALS: BP 120/60; RESP 17
[2017-02-18] MEDS: DEXTROSE 5%-0.45% NACL 1,000 ML IV SCH ×2 (08:08→20:22)
[2017-02-18] MEDS: LEVETIRACETAM IV 250 MG in DEXTROSE 5% 100 ML IV SCH ×2 (08:09→20:22)
--- NOTE | 2017-02-18 10:51 | CONS ---
Date/Time of Note Date/Time of Note DATE: 02/18/17 TIME: 10:50 Consultation Date/Type/Reason Admit Date/Time Feb 15, 2017 at 13:43 Initial Consult Date 02/15/17 Type of Consultation: [facility] Referring Provider: INDIA DANIEL Exam/Review of Systems Vital Signs Vitals Vital Signs Date Time Temp Pulse Resp B/P Pulse Ox O2 Delivery O2 Flow Rate FiO2 02/18/17 08:00 98.5 84 17 120/60 95 02/15/17 00:55 Room Air Intake and Output 02/17/17 02/17/17 02/18/17 15:00 23:00 07:00 Intake Total 102.5 ml Balance 102.5 ml Results Result Diagram: 02/18/17 0554 02/18/17 0554 Results 24 hrs Laboratory Tests Test 02/18/17 05:54 02/18/17 07:36 02/18/17 08:02 02/18/17 08:18 White Blood Count 7.4 Red Blood Count 4.21 L Hemoglobin 13.5 L Hematocrit 40.5 L Mean Corpuscular Volume 96.2 Mean Corpuscular Hemoglobin 32.1 Mean Corpuscular Hemoglobin Concent 33.3 Red Cell Distribution Width 14.0 Platelet Count 196 Mean Platelet Volume 9.4 Neutrophils % 65.0 Lymphocytes % 24.2 Monocytes % 9.0 Eosinophils % 0.1 Basophils % 0.5 Nucleated Red Blood Cells % 0.3 H Neutrophils # 4.8 Lymphocytes # 1.8 Monocytes # 0.7 Eosinophils # 0.0 Basophils # 0.0 Nucleated Red Blood Cells # 0.0 Sodium Level 138 Potassium Level 4.4 Chloride Level 107 Carbon Dioxide Level 23 Anion Gap 12 Blood Urea Nitrogen 11 Creatinine 0.75 Glucose Level 61 #L Calcium Level 8.2 L Bedside Glucose 69 L 125 106 Medications Medications Current Medications Ondansetron HCl (Zofran Inj) 4 mg Q6H PRN IV NAUSEA AND/OR VOMITING; Start at 18:00 Acetaminophen (Tylenol Tab) 650 mg Q6H PRN PO PAIN LEVEL 1-3 OR FEVER; Start 02/13/17 at 18:00 Acetaminophen/ Hydrocodone Bitart ([place] (5/325)) 1 tab Q6H PRN PO MODERATE PAIN LEVEL 4-6; Start 02/13/17 at 18:00 Morphine Sulfate (morphine) 2 mg Q4H PRN IV SEVERE PAIN LEVEL 7-10; Start at 18:00 Docusate Sodium (Colace) 100 mg Q12H PRN PO CONSTIPATION; Start 02/13/17 at 18 :00 Magnesium Hydroxide (Milk Of Mag) 30 ml DAILY PRN PO CONSTIPATION; Start 02/13 at 18:00 Sodium Biphosphate/ Sodium Phosphate (Fleet Enema) 133 ml DAILY PRN [place] CONSTIPATION; Start 02/13/17 at 18:00 Lorazepam (Ativan) 0.5 mg Q6H PRN IV ANXIETY Last administered on 02/18/17 02: 59; Admin Dose 0.5 MG; Start 02/13/17 at 18:00 Hydralazine HCl (Apresoline) 10 mg Q6H PRN IV ELEVATED BLOOD PRESSURE; Start 02/13/17 at 18:00 Nitroglycerin 1 tab 1 tab Q5M PRN SL ANGINA; Start 02/13/17 at 18:00 Levetiracetam/ Dextrose (Keppra Iv/D5W) 102.5 ml @ 410 mls/hr Q12 IV Last administered on 02/18/17 08:09; Admin Dose 410 MLS/HR; Start 02/14/17 at 10:00 Atorvastatin Calcium (Lipitor) 40 mg HS PO ; Start 02/14/17 at 09:55 Aspirin (Aspirin) 300 mg DAILY [place] Last administered on 02/17/17 10:18; Admin Dose 300 MG; Start 02/14/17 at 16:00 Acetaminophen 650 mg 650 mg Q6H PRN [place] FEVER; Start 02/17/17 at 00:00 Dextrose/Sodium Chloride (D5-1/2ns) 1,000 ml @ 75 mls/hr [id number] IV Last administered on 02/18/17 08:08; Admin Dose 75 MLS/HR; Start 02/18/17 at 08:00 RAYMUNDO SANTOS MD Feb 18, 2017 10:51
--- NOTE | 2017-02-18 10:51 | CONS ---
Date/Time of Note Date/Time of Note DATE: 02/18/17 TIME: 10:50 Consultation Date/Type/Reason Admit Date/Time Feb 15, 2017 at 13:43 Initial Consult Date 02/15/17 Type of Consultation: [facility] Referring Provider: INDIA DANIEL Exam/Review of Systems Vital Signs Vitals Vital Signs Date Time Temp Pulse Resp B/P Pulse Ox O2 Delivery O2 Flow Rate FiO2 02/18/17 08:00 98.5 84 17 120/60 95 02/15/17 00:55 Room Air Intake and Output 02/17/17 02/17/17 02/18/17 15:00 23:00 07:00 Intake Total 102.5 ml Balance 102.5 ml Results Result Diagram: 02/18/17 0554 02/18/17 0554 Results 24 hrs Laboratory Tests Test 02/18/17 05:54 02/18/17 07:36 02/18/17 08:02 02/18/17 08:18 White Blood Count 7.4 Red Blood Count 4.21 L Hemoglobin 13.5 L Hematocrit 40.5 L Mean Corpuscular Volume 96.2 Mean Corpuscular Hemoglobin 32.1 Mean Corpuscular Hemoglobin Concent 33.3 Red Cell Distribution Width 14.0 Platelet Count 196 Mean Platelet Volume 9.4 Neutrophils % 65.0 Lymphocytes % 24.2 Monocytes % 9.0 Eosinophils % 0.1 Basophils % 0.5 Nucleated Red Blood Cells % 0.3 H Neutrophils # 4.8 Lymphocytes # 1.8 Monocytes # 0.7 Eosinophils # 0.0 Basophils # 0.0 Nucleated Red Blood Cells # 0.0 Sodium Level 138 Potassium Level 4.4 Chloride Level 107 Carbon Dioxide Level 23 Anion Gap 12 Blood Urea Nitrogen 11 Creatinine 0.75 Glucose Level 61 #L Calcium Level 8.2 L Bedside Glucose 69 L 125 106 Medications Medications Current Medications Ondansetron HCl (Zofran Inj) 4 mg Q6H PRN IV NAUSEA AND/OR VOMITING; Start at 18:00 Acetaminophen (Tylenol Tab) 650 mg Q6H PRN PO PAIN LEVEL 1-3 OR FEVER; Start 02/13/17 at 18:00 Acetaminophen/ Hydrocodone Bitart ([place] (5/325)) 1 tab Q6H PRN PO MODERATE PAIN LEVEL 4-6; Start 02/13/17 at 18:00 Morphine Sulfate (morphine) 2 mg Q4H PRN IV SEVERE PAIN LEVEL 7-10; Start at 18:00 Docusate Sodium (Colace) 100 mg Q12H PRN PO CONSTIPATION; Start 02/13/17 at 18 :00 Magnesium Hydroxide (Milk Of Mag) 30 ml DAILY PRN PO CONSTIPATION; Start 02/13 at 18:00 Sodium Biphosphate/ Sodium Phosphate (Fleet Enema) 133 ml DAILY PRN [place] CONSTIPATION; Start 02/13/17 at 18:00 Lorazepam (Ativan) 0.5 mg Q6H PRN IV ANXIETY Last administered on 02/18/17 02: 59; Admin Dose 0.5 MG; Start 02/13/17 at 18:00 Hydralazine HCl (Apresoline) 10 mg Q6H PRN IV ELEVATED BLOOD PRESSURE; Start 02/13/17 at 18:00 Nitroglycerin 1 tab 1 tab Q5M PRN SL ANGINA; Start 02/13/17 at 18:00 Levetiracetam/ Dextrose (Keppra Iv/D5W) 102.5 ml @ 410 mls/hr Q12 IV Last administered on 02/18/17 08:09; Admin Dose 410 MLS/HR; Start 02/14/17 at 10:00 Atorvastatin Calcium (Lipitor) 40 mg HS PO ; Start 02/14/17 at 09:55 Aspirin (Aspirin) 300 mg DAILY [place] Last administered on 02/17/17 10:18; Admin Dose 300 MG; Start 02/14/17 at 16:00 Acetaminophen 650 mg 650 mg Q6H PRN [place] FEVER; Start 02/17/17 at 00:00 Dextrose/Sodium Chloride (D5-1/2ns) 1,000 ml @ 75 mls/hr [id number] IV Last administered on 02/18/17 08:08; Admin Dose 75 MLS/HR; Start 02/18/17 at 08:00 RAYMUNDO SANTOS MD Feb 18, 2017 10:51
--- NOTE | 2017-02-18 10:51 | CONS ---
Date/Time of Note Date/Time of Note DATE: 02/18/17 TIME: 10:50 Consultation Date/Type/Reason Admit Date/Time Feb 15, 2017 at 13:43 Initial Consult Date 02/15/17 Type of Consultation: [facility] Referring Provider: INDIA DANIEL Exam/Review of Systems Vital Signs Vitals Vital Signs Date Time Temp Pulse Resp B/P Pulse Ox O2 Delivery O2 Flow Rate FiO2 02/18/17 08:00 98.5 84 17 120/60 95 02/15/17 00:55 Room Air Intake and Output 02/17/17 02/17/17 02/18/17 15:00 23:00 07:00 Intake Total 102.5 ml Balance 102.5 ml Results Result Diagram: 02/18/17 0554 02/18/17 0554 Results 24 hrs Laboratory Tests Test 02/18/17 05:54 02/18/17 07:36 02/18/17 08:02 02/18/17 08:18 White Blood Count 7.4 Red Blood Count 4.21 L Hemoglobin 13.5 L Hematocrit 40.5 L Mean Corpuscular Volume 96.2 Mean Corpuscular Hemoglobin 32.1 Mean Corpuscular Hemoglobin Concent 33.3 Red Cell Distribution Width 14.0 Platelet Count 196 Mean Platelet Volume 9.4 Neutrophils % 65.0 Lymphocytes % 24.2 Monocytes % 9.0 Eosinophils % 0.1 Basophils % 0.5 Nucleated Red Blood Cells % 0.3 H Neutrophils # 4.8 Lymphocytes # 1.8 Monocytes # 0.7 Eosinophils # 0.0 Basophils # 0.0 Nucleated Red Blood Cells # 0.0 Sodium Level 138 Potassium Level 4.4 Chloride Level 107 Carbon Dioxide Level 23 Anion Gap 12 Blood Urea Nitrogen 11 Creatinine 0.75 Glucose Level 61 #L Calcium Level 8.2 L Bedside Glucose 69 L 125 106 Medications Medications Current Medications Ondansetron HCl (Zofran Inj) 4 mg Q6H PRN IV NAUSEA AND/OR VOMITING; Start at 18:00 Acetaminophen (Tylenol Tab) 650 mg Q6H PRN PO PAIN LEVEL 1-3 OR FEVER; Start 02/13/17 at 18:00 Acetaminophen/ Hydrocodone Bitart ([place] (5/325)) 1 tab Q6H PRN PO MODERATE PAIN LEVEL 4-6; Start 02/13/17 at 18:00 Morphine Sulfate (morphine) 2 mg Q4H PRN IV SEVERE PAIN LEVEL 7-10; Start at 18:00 Docusate Sodium (Colace) 100 mg Q12H PRN PO CONSTIPATION; Start 02/13/17 at 18 :00 Magnesium Hydroxide (Milk Of Mag) 30 ml DAILY PRN PO CONSTIPATION; Start 02/13 at 18:00 Sodium Biphosphate/ Sodium Phosphate (Fleet Enema) 133 ml DAILY PRN [place] CONSTIPATION; Start 02/13/17 at 18:00 Lorazepam (Ativan) 0.5 mg Q6H PRN IV ANXIETY Last administered on 02/18/17 02: 59; Admin Dose 0.5 MG; Start 02/13/17 at 18:00 Hydralazine HCl (Apresoline) 10 mg Q6H PRN IV ELEVATED BLOOD PRESSURE; Start 02/13/17 at 18:00 Nitroglycerin 1 tab 1 tab Q5M PRN SL ANGINA; Start 02/13/17 at 18:00 Levetiracetam/ Dextrose (Keppra Iv/D5W) 102.5 ml @ 410 mls/hr Q12 IV Last administered on 02/18/17 08:09; Admin Dose 410 MLS/HR; Start 02/14/17 at 10:00 Atorvastatin Calcium (Lipitor) 40 mg HS PO ; Start 02/14/17 at 09:55 Aspirin (Aspirin) 300 mg DAILY [place] Last administered on 02/17/17 10:18; Admin Dose 300 MG; Start 02/14/17 at 16:00 Acetaminophen 650 mg 650 mg Q6H PRN [place] FEVER; Start 02/17/17 at 00:00 Dextrose/Sodium Chloride (D5-1/2ns) 1,000 ml @ 75 mls/hr [id number] IV Last administered on 02/18/17 08:08; Admin Dose 75 MLS/HR; Start 02/18/17 at 08:00 RAYMUNDO SANTOS MD Feb 18, 2017 10:51
[2017-02-18] MEDS: ASPIRIN 300 MG SUPP PR SCH (11:25)
[2017-02-18 14:00] VITALS: BP 108/52; RESP 18
[2017-02-18] MEDS: ACETAMINOPHEN 650 MG SUPP PR PRN (15:15)
--- NOTE | 2017-02-18 15:30 | PN ---
Date/Time of Note Date/Time of Note DATE: 02/18/17 TIME: 15:26 Assessment/Plan VTE Prophylaxis VTE Prophylaxis Intervention: SCD's Lines/Catheters IV [facility]ter [facility]from [facility] [place] Urinary Cath still in place: No Assessment/Plan Assessment/Plan 76 yo M with pmhx ?brain tumor sp ?surgical management and chemo? at [facility] 11.16 admitted following a fall. Neuroimaging here with brain mass. PLAN family has transitioned patient to hospice care, plan for transfer to SNF under hospice care tomorrow ST re eval now that family has opted for hospice POLST completed, code status changed in computer cont AED/seizure precautions Subjective 24 Hr Interval Summary Free Text/Dictation Pt's family met his hospice agency earlier today. pt transitioned to hospice care Exam/Review of Systems Vital Signs Vitals Vital Signs Date Time Temp Pulse Resp B/P Pulse Ox O2 Delivery O2 Flow Rate FiO2 02/18/17 14:00 101.0 88 18 108/52 96 02/15/17 00:55 Room Air Intake and Output 02/17/17 02/17/17 02/18/17 15:00 23:00 07:00 Intake Total 102.5 ml Balance 102.5 ml Exam doesn't follow commands nad no mrg lungs clear abd soft no rashes Results Result Diagram: 02/18/17 0554 02/18/17 0554 Results 24 hrs Laboratory Tests Test 02/18/17 05:54 02/18/17 07:36 02/18/17 08:02 02/18/17 08:18 White Blood Count 7.4 Red Blood Count 4.21 L Hemoglobin 13.5 L Hematocrit 40.5 L Mean Corpuscular Volume 96.2 Mean Corpuscular Hemoglobin 32.1 Mean Corpuscular Hemoglobin Concent 33.3 Red Cell Distribution Width 14.0 Platelet Count 196 Mean Platelet Volume 9.4 Neutrophils % 65.0 Lymphocytes % 24.2 Monocytes % 9.0 Eosinophils % 0.1 Basophils % 0.5 Nucleated Red Blood Cells % 0.3 H Neutrophils # 4.8 Lymphocytes # 1.8 Monocytes # 0.7 Eosinophils # 0.0 Basophils # 0.0 Nucleated Red Blood Cells # 0.0 Sodium Level 138 Potassium Level 4.4 Chloride Level 107 Carbon Dioxide Level 23 Anion Gap 12 Blood Urea Nitrogen 11 Creatinine 0.75 Glucose Level 61 #L Calcium Level 8.2 L Bedside Glucose 69 L 125 106 Medications Medications Current Medications Ondansetron HCl (Zofran Inj) 4 mg Q6H PRN IV NAUSEA AND/OR VOMITING; Start at 18:00 Acetaminophen (Tylenol Tab) 650 mg Q6H PRN PO PAIN LEVEL 1-3 [place] FEVER; Start 02/13/17 at 18:00 Acetaminophen/ Hydrocodone Bitart ([place] (5/325)) 1 tab Q6H PRN PO MODERATE PAIN LEVEL 4-6; Start 02/13/17 at 18:00 Morphine Sulfate (morphine) 2 mg Q4H PRN IV SEVERE PAIN LEVEL 7-10; Start at 18:00 Docusate Sodium (Colace) 100 mg Q12H PRN PO CONSTIPATION; Start 02/13/17 at 18 :00 Magnesium Hydroxide (Milk Of Mag) 30 ml DAILY PRN PO CONSTIPATION; Start 02/13 at 18:00 Sodium Biphosphate/ Sodium Phosphate (Fleet Enema) 133 ml DAILY PRN [place] CONSTIPATION; Start 02/13/17 at 18:00 Lorazepam (Ativan) 0.5 mg Q6H PRN IV ANXIETY Last administered on 02/18/17 02: 59; Admin Dose 0.5 MG; Start 02/13/17 at 18:00 Hydralazine HCl (Apresoline) 10 mg Q6H PRN IV ELEVATED BLOOD PRESSURE; Start 02/13/17 at 18:00 Nitroglycerin 1 tab 1 tab Q5M PRN SL ANGINA; Start 02/13/17 at 18:00 Levetiracetam/ Dextrose (Keppra Iv/D5W) 102.5 ml @ 410 mls/hr Q12 IV Last administered on 02/18/17 08:09; Admin Dose 410 MLS/HR; Start 02/14/17 at 10:00 Atorvastatin Calcium (Lipitor) 40 mg HS PO ; Start 02/14/17 at 09:55 Aspirin (Aspirin) 300 mg DAILY [place] Last administered on 02/18/17 11:25; Admin Dose 300 MG; Start 02/14/17 at 16:00 Acetaminophen 650 mg 650 mg Q6H PRN [place] FEVER Last administered on 02/18/17 15: 15; Admin Dose 650 MG; Start 02/17/17 at 00:00 Dextrose/Sodium Chloride (D5-1/2ns) 1,000 ml @ 75 mls/hr [id number] IV Last administered on 02/18/17t 08:08; Admin Dose 75 MLS/HR; Start 02/18/17 at 08:00 MEENA PRETTY MD Feb 18, 2017 15:30
--- NOTE | 2017-02-18 15:30 | PN ---
Date/Time of Note Date/Time of Note DATE: 02/18/17 TIME: 15:26 Assessment/Plan VTE Prophylaxis VTE Prophylaxis Intervention: SCD's Lines/Catheters IV [facility] ([facility] Saline Lock Urinary Cath still in place: No Assessment/Plan Assessment/Plan 76 yo M with pmhx ?brain tumor sp ?surgical management and chemo? at [facility] 11.16 admitted following a fall. Neuroimaging here with brain mass. PLAN family has transitioned patient to hospice care, plan for transfer to SNF under hospice care tomorrow ST re eval now that family has opted for hospice POLST completed, code status changed in computer cont AED/seizure precautions Subjective 24 Hr Interval Summary Free Text/Dictation Pt's family met his hospice agency earlier today. pt transitioned to hospice care Exam/Review of Systems Vital Signs Vitals Vital Signs Date Time Temp Pulse Resp B/P Pulse Ox O2 Delivery O2 Flow Rate FiO2 02/18/17 14:00 101.0 88 18 108/52 96 02/15/17 00:55 Room Air Intake and Output 02/17/17 02/17/17 02/18/17 15:00 23:00 07:00 Intake Total 102.5 ml Balance 102.5 ml Exam doesn't follow commands nad no mrg lungs clear abd soft no rashes Results Result Diagram: 02/18/17 0554 02/18/17 0554 Results 24 hrs Laboratory Tests Test 02/18/17 05:54 02/18/17 07:36 02/18/17 08:02 02/18/17 08:18 White Blood Count 7.4 Red Blood Count 4.21 L Hemoglobin 13.5 L Hematocrit 40.5 L Mean Corpuscular Volume 96.2 Mean Corpuscular Hemoglobin 32.1 Mean Corpuscular Hemoglobin Concent 33.3 Red Cell Distribution Width 14.0 Platelet Count 196 Mean Platelet Volume 9.4 Neutrophils % 65.0 Lymphocytes % 24.2 Monocytes % 9.0 Eosinophils % 0.1 Basophils % 0.5 Nucleated Red Blood Cells % 0.3 H Neutrophils # 4.8 Lymphocytes # 1.8 Monocytes # 0.7 Eosinophils # 0.0 Basophils # 0.0 Nucleated Red Blood Cells # 0.0 Sodium Level 138 Potassium Level 4.4 Chloride Level 107 Carbon Dioxide Level 23 Anion Gap 12 Blood Urea Nitrogen 11 Creatinine 0.75 Glucose Level 61 #L Calcium Level 8.2 L Bedside Glucose 69 L 125 106 Medications Medications Current Medications Ondansetron HCl (Zofran Inj) 4 mg Q6H PRN IV NAUSEA AND/OR VOMITING; Start at 18:00 Acetaminophen (Tylenol Tab) 650 mg Q6H PRN PO PAIN LEVEL 1-3 OR FEVER; Start 02/13/17 at 18:00 Acetaminophen/ Hydrocodone Bitart ([place] (5/325)) 1 tab Q6H PRN PO MODERATE PAIN LEVEL 4-6; Start 02/13/17 at 18:00 Morphine Sulfate (morphine) 2 mg Q4H PRN IV SEVERE PAIN LEVEL 7-10; Start at 18:00 Docusate Sodium (Colace) 100 mg Q12H PRN PO CONSTIPATION; Start 02/13/17 at 18 :00 Magnesium Hydroxide (Milk Of Mag) 30 ml DAILY PRN PO CONSTIPATION; Start 02/13 at 18:00 Sodium Biphosphate/ Sodium Phosphate (Fleet Enema) 133 ml DAILY PRN [place] CONSTIPATION; Start 02/13/17 at 18:00 Lorazepam (Ativan) 0.5 mg Q6H PRN IV ANXIETY Last administered on 02/18/17 02: 59; Admin Dose 0.5 MG; Start 02/13/17 at 18:00 Hydralazine HCl (Apresoline) 10 mg Q6H PRN IV ELEVATED BLOOD PRESSURE; Start 02/13/17 at 18:00 Nitroglycerin 1 tab 1 tab Q5M PRN SL ANGINA; Start 02/13/17 at 18:00 Levetiracetam/ Dextrose (Keppra Iv/D5W) 102.5 ml @ 410 mls/hr Q12 IV Last administered on 02/18/17 08:09; Admin Dose 410 MLS/HR; Start 02/14/17 at 10:00 Atorvastatin Calcium (Lipitor) 40 mg HS PO ; Start 02/14/17 at 09:55 Aspirin (Aspirin) 300 mg DAILY [place] Last administered on 02/18/17 11:25; Admin Dose 300 MG; Start 02/14/17 at 16:00 Acetaminophen 650 mg 650 mg Q6H PRN [place] FEVER Last administered on 02/18/17 15: 15; Admin Dose 650 MG; Start 02/17/17 at 00:00 Dextrose/Sodium Chloride (D5-1/2ns) 1,000 ml @ 75 mls/hr [id number] IV Last administered on 02/18/17t 08:08; Admin Dose 75 MLS/HR; Start 02/18/17 at 08:00 MEENA PRETTY MD Feb 18, 2017 15:30
--- NOTE | 2017-02-18 15:30 | PN ---
Date/Time of Note Date/Time of Note DATE: 02/18/17 TIME: 15:26 Assessment/Plan VTE Prophylaxis VTE Prophylaxis Intervention: SCD's Lines/Catheters [facility]from [facility]): Saline Lock Urinary Cath still in place: No Assessment/Plan Assessment/Plan 76 yo M with pmhx ?brain tumor sp ?surgical management and chemo? at [facility] 11.16 admitted following a fall. Neuroimaging here with brain mass. PLAN family has transitioned patient to hospice care, plan for transfer to SNF under hospice care tomorrow ST re eval now that family has opted for hospice POLST completed, code status changed in computer cont AED/seizure precautions Subjective 24 Hr Interval Summary Free Text/Dictation Pt's family met his hospice agency earlier today. pt transitioned to hospice care Exam/Review of Systems Vital Signs Vitals Vital Signs Date Time Temp Pulse Resp B/P Pulse Ox O2 Delivery O2 Flow Rate FiO2 02/18/17 14:00 101.0 88 18 108/52 96 02/15/17 00:55 Room Air Intake and Output 02/17/17 02/17/17 02/18/17 15:00 23:00 07:00 Intake Total 102.5 ml Balance 102.5 ml Exam doesn't follow commands nad no mrg lungs clear abd soft no rashes Results Result Diagram: 02/18/17 0554 02/18/17 0554 Results 24 hrs Laboratory Tests Test 02/18/17 05:54 02/18/17 07:36 02/18/17 08:02 02/18/17 08:18 White Blood Count 7.4 Red Blood Count 4.21 L Hemoglobin 13.5 L Hematocrit 40.5 L Mean Corpuscular Volume 96.2 Mean Corpuscular Hemoglobin 32.1 Mean Corpuscular Hemoglobin Concent 33.3 Red Cell Distribution Width 14.0 Platelet Count 196 Mean Platelet Volume 9.4 Neutrophils % 65.0 Lymphocytes % 24.2 Monocytes % 9.0 Eosinophils % 0.1 Basophils % 0.5 Nucleated Red Blood Cells % 0.3 H Neutrophils # 4.8 Lymphocytes # 1.8 Monocytes # 0.7 Eosinophils # 0.0 Basophils # 0.0 Nucleated Red Blood Cells # 0.0 Sodium Level 138 Potassium Level 4.4 Chloride Level 107 Carbon Dioxide Level 23 Anion Gap 12 Blood Urea Nitrogen 11 Creatinine 0.75 Glucose Level 61 #L Calcium Level 8.2 L Bedside Glucose 69 L 125 106 Medications Medications Current Medications Ondansetron HCl (Zofran Inj) 4 mg Q6H PRN IV NAUSEA AND/OR VOMITING; Start at 18:00 Acetaminophen (Tylenol Tab) 650 mg Q6H PRN PO PAIN LEVEL 1-3 OR FEVER; Start 02/13/17 at 18:00 Acetaminophen/ Hydrocodone Bitart ([place] (5/325)) 1 tab Q6H PRN PO MODERATE PAIN LEVEL 4-6; Start 02/13/17 at 18:00 Morphine Sulfate (morphine) 2 mg Q4H PRN IV SEVERE PAIN LEVEL 7-10; Start at 18:00 Docusate Sodium (Colace) 100 mg Q12H PRN PO CONSTIPATION; Start 02/13/17 at 18 :00 Magnesium Hydroxide (Milk Of Mag) 30 ml DAILY PRN PO CONSTIPATION; Start 02/13 at 18:00 Sodium Biphosphate/ Sodium Phosphate (Fleet Enema) 133 ml DAILY PRN [place] CONSTIPATION; Start 02/13/17 at 18:00 Lorazepam (Ativan) 0.5 mg Q6H PRN IV ANXIETY Last administered on 02/18/17 02: 59; Admin Dose 0.5 MG; Start 02/13/17 at 18:00 Hydralazine HCl (Apresoline) 10 mg Q6H PRN IV ELEVATED BLOOD PRESSURE; Start 02/13/17 at 18:00 Nitroglycerin 1 tab 1 tab Q5M PRN SL ANGINA; Start 02/13/17 at 18:00 Levetiracetam/ Dextrose (Keppra Iv/D5W) 102.5 ml @ 410 mls/hr Q12 IV Last administered on 02/18/17 08:09; Admin Dose 410 MLS/HR; Start 02/14/17 at 10:00 Atorvastatin Calcium (Lipitor) 40 mg HS PO ; Start 02/14/17 at 09:55 Aspirin (Aspirin) 300 mg DAILY [place] Last administered on 02/18/17 11:25; Admin Dose 300 MG; Start 02/14/17 at 16:00 Acetaminophen 650 mg 650 mg Q6H PRN [place] FEVER Last administered on 02/18/17 15: 15; Admin Dose 650 MG; Start 02/17/17 at 00:00 Dextrose/Sodium Chloride (D5-1/2ns) 1,000 ml @ 75 mls/hr [id number] IV Last administered on 02/18/17t 08:08; Admin Dose 75 MLS/HR; Start 02/18/17 at 08:00 MEENA PRETTY MD Feb 18, 2017 15:30
[2017-02-18] MEDS: ATORVASTATIN 40 MG TAB PO SCH (20:20)
[2017-02-18 21:12] VITALS: BP 127/60; RESP 18
[2017-02-19 03:01] VITALS: BP 127/59; RESP 19
[2017-02-19] MEDS: ASPIRIN 300 MG SUPP PR SCH (08:11)
[2017-02-19] MEDS: LEVETIRACETAM IV 250 MG in DEXTROSE 5% 100 ML IV SCH (08:12)
[2017-02-19 08:14] VITALS: BP 111/55; RESP 20
[2017-02-19] MEDS: ACETAMINOPHEN 650 MG SUPP PR PRN (08:14)
--- NOTE | 2017-02-19 09:57 | DS ---
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 IMPRESSION: 1. Patent superior sagittal sinus, torcula, bilateral transverse, sigmoid and internal jugular veins. 2. Normal [place] 3. Large right parietal occipital neoplasm with approximate dimensions of 3.2 cm AP by 2.5 cm transverse by 4.2 cm in superior inferior dimensions. Recommend correlation with pathology. 4. Extensive right posterior temporal, parietal and occipital perilesional edema. 5. Status post right parietal occipital craniotomy changes. Hx of Present Illness 76-year-old male with past medical history of prior brain tumor, prostate cancer, and dementia, who was brought in by after experiencing a mechanical fall at home and right arm pain and knee pain. Most information obtained from the ER documentation as the patient is unable to provide any history at this time, and it has been difficult to track down family members. Apparently, the story is that the patient [place] [facility] [place] [facility] rehab facility in [place] and was not happy with the care there and his took him home a few days ago. Apparently, that is when the patient had a fall and the decided to bring him to the emergency room over 24 hours ago. The case liner in the ER tried to have the patient placed at a different nursing facility, but were unsuccessful to place the patient at a nursing facility through the emergency room during this stay. Because the patient's workup has been negative thus far, there was also an attempt to have the patient discharged back home, but the family members did not answer the door when ambulance and police arrived, so the patient was brought back here and we are looking at a possible placement issue versus further workup for the patient. Presently denies any fevers or chills. No shortness of breath, no chest pain. No headaches or blurry vision. No nausea, vomiting, diarrhea or constipation. The patient is unable to provide a full HPI at this time because of the language barrier and also some mild confusion. 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 Neuroimaging here revealed recurrence of GBM. Family reports they had been watching patient' s condition deteriorate for the past several months and would like to transition the patient's care to hospice. Rob was contacted and pt was transferred to SNF under hospice care. Home Meds Active Scripts Ibuprofen* (Motrin*) 400 Mg Tab, 400 MG PO Q8 for PAIN AND/OR INFLAMMATION, #30 TAB Prov:DANNIE BLAKELY MD 02/12/17 Reported Medications Levetiracetam* (Keppra*) 500 Mg Tablet, 500 MG PO BID, TAB 02/12/17 Pantoprazole* (Protonix*) 20 Mg Tablet.dr, 20 MG PO BID, TAB 02/12/17 Dexamethasone* (Decadron*) 4 Mg Tab, 4 MG PO DAILY, #60 TAB 02/12/17 Hydrocodone/Acetaminophen ([place] 5-325 Tablet) 1 Each Tablet, 1 EACH PO Q6H, TAB 02/12/17 Discontinued Reported Medications Dexamethasone* (Decadron*) 2 Mg Tab, 2 MG PO BID, TAB 02/12/17 Follow-up Plan SNF with [facility] hospice Primary Care Provider Not On Staff Doctor Time spent on discharge: > 30 minutes Pending Labs Laboratory Tests Test 02/19/17 04:46 White Blood Count 12.510^3/ul (4.8-10.8) Red Blood Count 4.2210^6/ul (4.70-6.10) Hemoglobin 13.6g/dl (14.0-18.0) Hematocrit 41.2% (42.0-52.0) Mean Corpuscular Volume 97.6fl (82.0-101.0) Mean Corpuscular Hemoglobin 32.2pg (29.0-33.0) Mean Corpuscular Hemoglobin Concent 33.0g/dl (32.0-37.0) Red Cell Distribution Width 13.8% (11.5-14.5) Platelet Count 84750^3/UL (140-415) Mean Platelet Volume 9.2fl (7.4-10.4) Neutrophils % 71.6% (39.0-77.0) Lymphocytes % 16.6% (15.0-51.0) Monocytes % 10.4% (0.0-11.0) Eosinophils % 0.1% (0.0-7.0) Basophils % 0.2% (0.0-2.0) Nucleated Red Blood Cells % 0.0/100WBC (0.0-0.0) Neutrophils # 9.010^3/ul (1.6-7.5) Lymphocytes # 2.110^3/ul (0.8-2.9) Monocytes # 1.310^3/ul (0.3-0.9) Eosinophils # 0.010^3/ul (0.0-0.5) Basophils # 0.010^3/ul (0.0-0.1) Nucleated Red Blood Cells # 0.010^3/ul (0.0-0.0) Sodium Level 137mmol/L (135-144) Potassium Level 3.8mmol/L (3.5-5.1) Chloride Level 105mmol/L (97-110) Carbon Dioxide Level 21mmol/L (21-31) Anion Gap 15 (8-16) Blood Urea Nitrogen 11mg/dl (7-20) Creatinine 0.73mg/dl (0.61-1.24) Glucose Level 113mg/dl (70-220) Calcium Level 7.7mg/dl (8.4-10.2) Prostate Specific Antigen 0.2ng/ml (0.0-4.0) MEENA PRETTY MD Feb 19, 2017 09:57
--- NOTE | 2017-02-19 09:57 | DS ---
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 IMPRESSION: 1. Patent superior sagittal sinus, torcula, bilateral transverse, sigmoid and internal jugular veins. 2. Normal [place] 3. Large right parietal occipital neoplasm with approximate dimensions of 3.2 cm AP by 2.5 cm transverse by 4.2 cm in superior inferior dimensions. Recommend correlation with pathology. 4. Extensive right posterior temporal, parietal and occipital perilesional edema. 5. Status post right parietal occipital craniotomy changes. Hx of Present Illness 76-year-old male with past medical history of prior brain tumor, prostate cancer, and dementia, who was brought in by after experiencing a mechanical fall at home and right arm pain and knee pain. Most information obtained from the ER documentation as the patient is unable to provide any history at this time, and it has been difficult to track down family members. Apparently, the story is that the patient was recently at [facility] facility in [place] and was not happy with the care there and his took him home a few days ago. Apparently, that is when the patient had a fall and the decided to bring him to the emergency room over 24 hours ago. The pillowcase folder in the ER tried to have the patient placed at a different nursing facility, but were unsuccessful to place the patient at a nursing facility through the emergency room during this stay. Because the patient's workup has been negative thus far, there was also an attempt to have the patient discharged back home, but the family members did not answer the door when ambulance and police arrived, so the patient was brought back here and we are looking at a possible placement issue versus further workup for the patient. Presently denies any fevers or chills. No shortness of breath, no chest pain. No headaches or blurry vision. No nausea, vomiting, diarrhea or constipation. The patient is unable to provide a full HPI at this time because of the language barrier and also some mild confusion. 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 Neuroimaging here revealed recurrence of GBM. Family reports they had been watching patient' s condition deteriorate for the past several months and would like to transition the patient's care to hospice. Rob was contacted and pt was transferred to SNF under hospice care. Home Meds Active Scripts Ibuprofen* (Motrin*) 400 Mg Tab, 400 MG PO Q8 for PAIN AND/OR INFLAMMATION, #30 TAB Prov:DANNIE BLAKELY MD 02/12/17 Reported Medications Levetiracetam* (Keppra*) 500 Mg Tablet, 500 MG PO BID, TAB 02/12/17 Pantoprazole* (Protonix*) 20 Mg Tablet.dr, 20 MG PO BID, TAB 02/12/17 Dexamethasone* (Decadron*) 4 Mg Tab, 4 MG PO DAILY, #60 TAB 02/12/17 Hydrocodone/Acetaminophen ([place] 5-325 Tablet) 1 Each Tablet, 1 EACH PO Q6H, TAB 02/12/17 Discontinued Reported Medications Dexamethasone* (Decadron*) 2 Mg Tab, 2 MG PO BID, TAB 02/12/17 Follow-up Plan SNF with [facility] hospice Primary Care Provider Not On Staff Doctor Time spent on discharge: > 30 minutes Pending Labs Laboratory Tests Test 02/19/17 04:46 White Blood Count 12.510^3/ul (4.8-10.8) Red Blood Count 4.2210^6/ul (4.70-6.10) Hemoglobin 13.6g/dl (14.0-18.0) Hematocrit 41.2% (42.0-52.0) Mean Corpuscular Volume 97.6fl (82.0-101.0) Mean Corpuscular Hemoglobin 32.2pg (29.0-33.0) Mean Corpuscular Hemoglobin Concent 33.0g/dl (32.0-37.0) Red Cell Distribution Width 13.8% (11.5-14.5) Platelet Count 08187^3/UL (140-415) Mean Platelet Volume 9.2fl (7.4-10.4) Neutrophils % 71.6% (39.0-77.0) Lymphocytes % 16.6% (15.0-51.0) Monocytes % 10.4% (0.0-11.0) Eosinophils % 0.1% (0.0-7.0) Basophils % 0.2% (0.0-2.0) Nucleated Red Blood Cells % 0.0/100WBC (0.0-0.0) Neutrophils # 9.010^3/ul (1.6-7.5) Lymphocytes # 2.110^3/ul (0.8-2.9) Monocytes # 1.310^3/ul (0.3-0.9) Eosinophils # 0.010^3/ul (0.0-0.5) Basophils # 0.010^3/ul (0.0-0.1) Nucleated Red Blood Cells # 0.010^3/ul (0.0-0.0) Sodium Level 137mmol/L (135-144) Potassium Level 3.8mmol/L (3.5-5.1) Chloride Level 105mmol/L (97-110) Carbon Dioxide Level 21mmol/L (21-31) Anion Gap 15 (8-16) Blood Urea Nitrogen 11mg/dl (7-20) Creatinine 0.73mg/dl (0.61-1.24) Glucose Level 113mg/dl (70-220) Calcium Level 7.7mg/dl (8.4-10.2) Prostate Specific Antigen 0.2ng/ml (0.0-4.0) MEENA PRETTY MD Feb 19, 2017 09:57
--- NOTE | 2017-02-19 09:57 | DS ---
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 IMPRESSION: 1. Patent superior sagittal sinus, torcula, bilateral transverse, sigmoid and internal jugular veins. 2. Normal [place] 3. Large right parietal occipital neoplasm with approximate dimensions of 3.2 cm AP by 2.5 cm transverse by 4.2 cm in superior inferior dimensions. Recommend correlation with pathology. 4. Extensive right posterior temporal, parietal and occipital perilesional edema. 5. Status post right parietal occipital craniotomy changes. Hx of Present Illness 76-year-old male with past medical history of prior brain tumor, prostate cancer, and dementia, who was brought in by after experiencing a mechanical fall at home and right arm pain and knee pain. Most information obtained from the ER documentation as the patient is unable to provide any history at this time, and it has been difficult to track down family members. Apparently, the story is that the patient was recently at a intermediate facility or rehab facility in [place] and was not happy with the care there and his took him home a few days ago. Apparently, that is when the patient had a fall and the decided to bring him to the emergency room over 24 hours ago. The heel caser in the ER tried to have the patient placed at a different nursing facility, but were unsuccessful to place the patient at a nursing facility through the emergency room during this stay. Because the patient's workup has been negative thus far, there was also an attempt to have the patient discharged back home, but the family members did not answer the door when ambulance and police arrived, so the patient was brought back here and we are looking at a possible placement issue versus further workup for the patient. Presently denies any fevers or chills. No shortness of breath, no chest pain. No headaches or blurry vision. No nausea, vomiting, diarrhea or constipation. The patient is unable to provide a full HPI at this time because of the language barrier and also some mild confusion. 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 Neuroimaging here revealed recurrence of GBM. Family reports they had been watching patient' s condition deteriorate for the past several months and would like to transition the patient's care to hospice. Rob was contacted and pt was transferred to SNF under hospice care. Home Meds Active Scripts Ibuprofen* (Motrin*) 400 Mg Tab, 400 MG PO Q8 for PAIN AND/OR INFLAMMATION, #30 TAB Prov:DANNIE BLAKELY MD 02/12/17 Reported Medications Levetiracetam* (Keppra*) 500 Mg Tablet, 500 MG PO BID, TAB 02/12/17 Pantoprazole* (Protonix*) 20 Mg Tablet.dr, 20 MG PO BID, TAB 02/12/17 Dexamethasone* (Decadron*) 4 Mg Tab, 4 MG PO DAILY, #60 TAB 02/12/17 Hydrocodone/Acetaminophen ([place] 5-325 Tablet) 1 Each Tablet, 1 EACH PO Q6H, TAB 02/12/17 Discontinued Reported Medications Dexamethasone* (Decadron*) 2 Mg Tab, 2 MG PO BID, TAB 02/12/17 Follow-up Plan SNF with [facility] hospice Primary Care Provider Not On Staff Doctor Time spent on discharge: > 30 minutes Pending Labs Laboratory Tests Test 02/19/17 04:46 White Blood Count 12.510^3/ul (4.8-10.8) Red Blood Count 4.2210^6/ul (4.70-6.10) Hemoglobin 13.6g/dl (14.0-18.0) Hematocrit 41.2% (42.0-52.0) Mean Corpuscular Volume 97.6fl (82.0-101.0) Mean Corpuscular Hemoglobin 32.2pg (29.0-33.0) Mean Corpuscular Hemoglobin Concent 33.0g/dl (32.0-37.0) Red Cell Distribution Width 13.8% (11.5-14.5) Platelet Count 90708^3/UL (140-415) Mean Platelet Volume 9.2fl (7.4-10.4) Neutrophils % 71.6% (39.0-77.0) Lymphocytes % 16.6% (15.0-51.0) Monocytes % 10.4% (0.0-11.0) Eosinophils % 0.1% (0.0-7.0) Basophils % 0.2% (0.0-2.0) Nucleated Red Blood Cells % 0.0/100WBC (0.0-0.0) Neutrophils # 9.010^3/ul (1.6-7.5) Lymphocytes # 2.110^3/ul (0.8-2.9) Monocytes # 1.310^3/ul (0.3-0.9) Eosinophils # 0.010^3/ul (0.0-0.5) Basophils # 0.010^3/ul (0.0-0.1) Nucleated Red Blood Cells # 0.010^3/ul (0.0-0.0) Sodium Level 137mmol/L (135-144) Potassium Level 3.8mmol/L (3.5-5.1) Chloride Level 105mmol/L (97-110) Carbon Dioxide Level 21mmol/L (21-31) Anion Gap 15 (8-16) Blood Urea Nitrogen 11mg/dl (7-20) Creatinine 0.73mg/dl (0.61-1.24) Glucose Level 113mg/dl (70-220) Calcium Level 7.7mg/dl (8.4-10.2) Prostate Specific Antigen 0.2ng/ml (0.0-4.0) MEENA PRETTY MD Feb 19, 2017 09:57
--- NOTE | 2017-02-19 19:06 | CONS ---
Date/Time of Note Date/Time of Note DATE: 02/19/17 TIME: 08:06 VK LE Consultation Date/Type/Reason Admit Date/Time Feb 15, 2017 at 13:43 Initial Consult Date 02/15/17 Type of Consultation: [facility] Referring Provider: INDIA DANIEL Exam/Review of Systems Vital Signs Vitals Vital Signs Date Time Temp Pulse Resp B/P Pulse Ox O2 Delivery O2 Flow Rate FiO2 02/19/17 08:58 98.6 02/19/17 08:14 108 20 111/55 90 Intake and Output 02/18/17 02/18/17 02/19/17 15:00 23:00 07:00 Intake Total 1105.0 ml 670 ml Balance 1105.0 ml 670 ml Results Result Diagram: 02/19/17 0446 02/19/17 0446 Results 24 hrs Laboratory Tests Test 02/19/17 04:46 White Blood Count 12.5 #H Red Blood Count 4.22 L Hemoglobin 13.6 L Hematocrit 41.2 L Mean Corpuscular Volume 97.6 Mean Corpuscular Hemoglobin 32.2 Mean Corpuscular Hemoglobin Concent 33.0 Red Cell Distribution Width 13.8 Platelet Count 214 Mean Platelet Volume 9.2 Neutrophils % 71.6 Lymphocytes % 16.6 Monocytes % 10.4 Eosinophils % 0.1 Basophils % 0.2 Nucleated Red Blood Cells % 0.0 Neutrophils # 9.0 H Lymphocytes # 2.1 Monocytes # 1.3 H Eosinophils # 0.0 Basophils # 0.0 Nucleated Red Blood Cells # 0.0 Sodium Level 137 Potassium Level 3.8 Chloride Level 105 Carbon Dioxide Level 21 Anion Gap 15 Blood Urea Nitrogen 11 Creatinine 0.73 Glucose Level 113 # Calcium Level 7.7 L Prostate Specific Antigen 0.2 RAYMUNDO SANTOS MD Feb 19, 2017 19:06
--- NOTE | 2017-02-19 19:06 | CONS ---
Date/Time of Note Date/Time of Note DATE: 02/19/17 TIME: 08:06 VK LE Consultation Date/Type/Reason Admit Date/Time Feb 15, 2017 at 13:43 Initial Consult Date 02/15/17 Type of Consultation: [facility] Referring Provider: IND[place] DANIEL Exam/Review of Systems Vital Signs Vitals Vital Signs Date Time Temp Pulse Resp B/P Pulse Ox O2 Delivery O2 Flow Rate FiO2 02/19/17 08:58 98.6 02/19/17 08:14 108 20 111/55 90 Intake and Output 02/18/17 02/18/17 02/19/17 15:00 23:00 07:00 Intake Total 1105.0 ml 670 ml Balance 1105.0 ml 670 ml Results Result Diagram: 02/19/17 0446 02/19/17 0446 Results 24 hrs Laboratory Tests Test 02/19/17 04:46 White Blood Count 12.5 #H Red Blood Count 4.22 L Hemoglobin 13.6 L Hematocrit 41.2 L Mean Corpuscular Volume 97.6 Mean Corpuscular Hemoglobin 32.2 Mean Corpuscular Hemoglobin Concent 33.0 Red Cell Distribution Width 13.8 Platelet Count 214 Mean Platelet Volume 9.2 Neutrophils % 71.6 Lymphocytes % 16.6 Monocytes % 10.4 Eosinophils % 0.1 Basophils % 0.2 Nucleated Red Blood Cells % 0.0 Neutrophils # 9.0 H Lymphocytes # 2.1 Monocytes # 1.3 H Eosinophils # 0.0 Basophils # 0.0 Nucleated Red Blood Cells # 0.0 Sodium Level 137 Potassium Level 3.8 Chloride Level 105 Carbon Dioxide Level 21 Anion Gap 15 Blood Urea Nitrogen 11 Creatinine 0.73 Glucose Level 113 # Calcium Level 7.7 L Prostate Specific Antigen 0.2 RAYMUNDO SANTOS MD Feb 19, 2017 19:06
--- NOTE | 2017-02-19 19:06 | CONS ---
Date/Time of Note Date/Time of Note DATE: 02/19/17 TIME: 08:06 VK LE Consultation Date/Type/Reason Admit Date/Time Feb 15, 2017 at 13:43 Initial Consult Date 02/15/17 Type of Consultation: [facility] Referring Provider: [place] DANIEL Exam/Review of Systems Vital Signs Vitals Vital Signs Date Time Temp Pulse Resp B/P Pulse Ox O2 Delivery O2 Flow Rate FiO2 02/19/17 08:58 98.6 02/19/17 08:14 108 20 111/55 90 Intake and Output 02/18/17 02/18/17 02/19/17 15:00 23:00 07:00 Intake Total 1105.0 ml 670 ml Balance 1105.0 ml 670 ml Results Result Diagram: 02/19/17 0446 02/19/17 0446 Results 24 hrs Laboratory Tests Test 02/19/17 04:46 White Blood Count 12.5 #H Red Blood Count 4.22 L Hemoglobin 13.6 L Hematocrit 41.2 L Mean Corpuscular Volume 97.6 Mean Corpuscular Hemoglobin 32.2 Mean Corpuscular Hemoglobin Concent 33.0 Red Cell Distribution Width 13.8 Platelet Count 214 Mean Platelet Volume 9.2 Neutrophils % 71.6 Lymphocytes % 16.6 Monocytes % 10.4 Eosinophils % 0.1 Basophils % 0.2 Nucleated Red Blood Cells % 0.0 Neutrophils # 9.0 H Lymphocytes # 2.1 Monocytes # 1.3 H Eosinophils # 0.0 Basophils # 0.0 Nucleated Red Blood Cells # 0.0 Sodium Level 137 Potassium Level 3.8 Chloride Level 105 Carbon Dioxide Level 21 Anion Gap 15 Blood Urea Nitrogen 11 Creatinine 0.73 Glucose Level 113 # Calcium Level 7.7 L Prostate Specific Antigen 0.2 RAYMUNDO SANTOS MD Feb 19, 2017 19:06
== END 2017-02-19 10:47 | disposition hospice, inpatient (51) | DRG 54 ==
LOC: E/R 16:50 → MS2 02-13 17:59 → TEL 02-14 13:10 → OBSVTOIN 02-15 13:43 → PP2 02-16 19:40
PROVIDERS: ADMIT Hospitalist; ATTEND Hospitalist
DX: C71.9 Malignant neoplasm of brain, unspecified (principal); G93.6 Cerebral edema; G93.49 Other encephalopathy; Z66 Do not resuscitate; F03.90 Unspecified dementia, unspecified severity, without behavioral disturbance, psychotic disturbance, mood disturbance, and anxiety; S70.01XA Contusion of right hip, initial encounter; M25.561 Pain in right knee; M25.529 Pain in unspecified elbow; W01.0XXA Fall on same level from slipping, tripping and stumbling without subsequent striking against object, initial encounter; Y92.009 Unspecified place in unspecified non-institutional (private) residence as the place of occurrence of the external cause; Z85.46 Personal history of malignant neoplasm of prostate; Z98.890 Other specified postprocedural states; Z85.841 Personal history of malignant neoplasm of brain
CPT/HCPCS: 36415; 70450; 70496; 70551; 70552; 71010; 72170; 73510; 73562; 80048; 80053; 80061; 82962; 83036; 83690; 83735; 84100; 84153; 84154; 84439; 84443; 84484; 85025; 85610; 87081; 90686; 92610; 93005; 93306; 93880; 96374; 97003; 97110; 97161; 97166; 97530; 97535; G0378; C9113; J1885; J1953; J2060; J2270; J2720; J3480; J7030; J7042; P9612; Q9967